=== PATIENT | male | born 1970 | race Caucasian/White ===

== ENCOUNTER 2023-05-06 03:27 | Emergency (ER) | payer BC, SELFPAY ==
[2023-05-06] VITALS (7 sets, daily range): BP systolic 161–205; BP diastolic 98–127; PULSE 76–87; RESP 16–19; TEMP 36.3–36.7; O2SAT 96–99; BMI 37.3
[2023-05-06 04:04] LABS: Microscopic, Urine URINE MICROSCOPIC (MICROSCOPIC)
[2023-05-06 04:10] LABS: Appearance,Urine CLEAR (Clear); Bilirubin,Urine Negative (Negative); Blood, Urine 1+ (Negative); Color,Urine YELLOW (Yellow); Glucose,Urine (UA) Negative (Negative); Ketones,Urine Negative (Negative); Leukocyte Esterase,Urine Negative (Negative); Nitrate,Urine Negative (Negative); Protein,Urine 1+ (Negative); Specific Gravity, Urine 1.025 (1.005-1.030); Urobilinogen,Urine 0.2 EU/dl (0.2)
[2023-05-06 04:10] LABS: Basophils # 0.1 K/mm3 (0-0.2); Eosinophils # 0.4 K/mm3 (0.0-0.4); Eosinophils % 5.9 % (0.1-12.0); Hematocrit 51.3 % (42.0-52.0); Hemoglobin 16.6 g/dL (14.1-18.0); Lymphocytes # 2.3 K/mm3 (0.7-4.5); Lymphocytes % 32.7 % (10-50); Mean Corpuscular HGB Conc 32.4 g/dL (31.8-35.4); Mean Corpuscular Hemoglobin 27.8 pg (27.0-31.2); Mean Corpuscular Volume 85.9 fl (80-94); Mean Platelet Volume 8.7 fl (7.4-10.4); Monocytes # 0.4 K/mm3 (0.1-1.0); Neutrophils # 3.9 K/mm3 (1.8-7.8); Neutrophils % 54.4 % (37.0-80.0); Platelet Count 213 K/mm3 (142-424); Red Blood Count 5.97 M/mm3 (4.60-6.20); Red Cell Distribution Width 13.6 % (11.5-17.5); White Blood Count 7.1 K/mm3 (4.8-10.8)
[2023-05-06 04:15] LABS: Alanine Aminotransferase 99 U/L (12-78); Albumin Level 4.5 g/dl (3.5-5.0); Alkaline Phosphatase 53 U/L (38-126); Anion Gap 15.4 mEq/L (5-15); Aspartate Amino Transferase 61 U/L (17-59); Bilirubin,Indirect 0.5 mg/dL (0.0-0.9); Bilirubin,Total 0.5 mg/dl (0.2-1.3); Bilirubin,Unconjugated 0.5 mg/dL (0.0-1.1); Blood Urea Nitrogen 14 mg/dl (9-20); Calcium 9.6 mg/dl (8.4-10.2); Carbon Dioxide 29 mmol/L (22.0-30.0); Chloride 99 mmol/L (98-107); Creatinine Clearance Estimated 141 mL/min (50-200); Estimated Glomerular Filt Rate 78 ml/min (>60); GFR (African American) 94 ML/MIN (>60); Glucose 123 mg/dl (74-100); Potassium 4.4 mmoL/L (3.5-5.1); Sodium 139 mmol/L (136-145); Total Protein,Serum 8.6 g/dl (6.3-8.2)
--- NOTE | 2023-05-06 04:19 | CT_ITS ---
PROCEDURE INFORMATION: Exam: CT Abdomen And Pelvis Without Contrast Exam date and time: 05/06/2023 4:34 AM Age: 52 years old Clinical indication: Abdominal pain; Additional info: L back L groin pain with difficulty urinating TECHNIQUE: Imaging protocol: Computed tomography of the abdomen and pelvis without contrast. Radiation optimization: All CT scans at this facility use at least one of these dose optimization techniques: automated exposure control; mA and/or kV adjustment per patient size (includes targeted exams where dose is matched to clinical indication); or iterative reconstruction. REPORTING DATA: Count of CT and Cardiac NM exams in prior 12 months: This patient has received 0 known CTs and 0 known cardiac nuclear medicine studies in the 12 months prior to the current study. COMPARISON: No relevant prior studies available. FINDINGS: Liver: Hepatic steatosis. Gallbladder and bile ducts: No acute findings, calcified stones or ductal dilation. Pancreas: No acute findings, focal abnormality or ductal dilation. Spleen: No splenomegaly or focal abnormality. Adrenal glands: Normal. No mass. Kidneys and ureters: Left-sided perinephric stranding. Mild left-sided periureteral stranding. Bilateral nonobstructing intrarenal calculi. Simple appearing bilateral exophytic renal cysts. Stomach and bowel: Small uncomplicated duodenal diverticulum. No bowel obstruction. Scattered uncomplicated colonic diverticula. Appendix: No evidence of appendicitis. Intraperitoneal space: No free air. No significant fluid collection. Vasculature: Partially calcified 1.5 cm splenic artery aneurysm. Lymph nodes: There are multiple nonspecific nonpathologic but prominent lymph nodes in the mesentery. There are no mesenteric lymph nodes of pathologic dimensions. Urinary bladder: 3 mm calculus in the dependent urinary bladder. Reproductive: Unremarkable as visualized. Bones/joints: No acute fracture. Soft tissues: There is a small uncomplicated fat-containing umbilical hernia. IMPRESSION: 1. 3 mm calculus in the dependent urinary bladder with associated mild left-sided perinephric and periureteral stranding likely related to recently passed ureteral calculus. 2. Hepatic steatosis. 3. Other chronic changes as described. COMMENTS: Consistent with the [employer]'s Incidental Findings Committee white paper (J Am Vazquez Radiol 2018): Any incidental renal lesion less than 1 cm or classified as too small to characterize, or any incidental cystic renal lesion characterized as simple-appearing, is likely benign. No follow-up imaging is recommended for these lesions per consensus recommendations based on imaging criteria.
[2023-05-06 04:32] LABS: T4 (Thyroxine) 8.6 ug/dl (5.53-11.0)
--- NOTE | 2023-05-06 04:33 | PC.NURSE ---
pt to CT scan
--- NOTE | 2023-05-06 04:35 | PC.NURSE ---
pt returned to room from ct scan
[2023-05-06 04:44] LABS: Bacteria,Urine Trace /lpf
[2023-05-06 04:46] LABS: Thyroid Stimulating Hormone 3.78 uIU/mL (0.465-4.68)
--- NOTE | 2023-05-06 05:05 | PC.NURSE ---
Rounded on pt at this time. Advises he was feeling much better and had no pain at this time, updated him that we were waiting on CT read. No other needs
--- NOTE | 2023-05-06 05:53 | PC.NURSE ---
Radiology chatting with vrad regarding delayed read time
--- NOTE | 2023-05-06 06:13 | HMH.EDBACK ---
Discharge Plan Disposition Chief Complaint: Back Pain/Injury Prescriptions Prescriptions: No Action levothyroxine 25 mcg tablet 25 mcg PO DAILY Label Comments: TAKE ONE TABLET BY MOUTH ONCE DAILY Referrals Follow up/Referrals: Ryan Davis MD [Primary Care Provider] - See instructions Jose Miguel Chilel MD [Referring] - See instructions Clinical Impressions Clinical Impression: Renal colic on left side Instructions Patient Instructions: DI for Kidney Stones Discharge ED Provider: Bryant (ED),Tristan Burr Back Pain HPI General Chief Complaint: Back Pain/Injury Stated Complaint: Back pain radiating to groin Time Seen by Provider: 05/06/23 05:00 Mode of Arrival: Ambulatory Source of Information: Patient and Medical Record Limitations: No Limitations Description of Symptoms (Recalled from ER Triage Doc. by RN): Pt presents with right side lumbar pain radiating into his right groin with frequent urination. No hx of kidney stones. History of Present Illness HPI Narrative: lt flank pain into groin Complaint: back pain Onset (ago): hour(s) Duration: intermittent Similar Symptoms Previously: No Location: left flank Severity: moderate Associated symptoms: denies other symptoms Related Data Home Medications Medication Instructions Recorded Confirmed levothyroxine 25 mcg tablet 25 mcg PO DAILY thyroid disorder 05/06/23 05/06/23 Allergies Allergy/AdvReac Type Severity Reaction Status Date / Time No Known Allergies Allergy Verified 05/06/23 03:32 [facility] Disclaimer: The information contained in this section may have been updated after the patient was seen, as this information can be updated by other users. Medical History (Updated 05/06/23 @ 06:18 by Tristan Hurtado (ED)MD) Hypothyroidism Social History Smoking Status: Never smoker alcohol intake: never current occupational status: employed Travel in the last 8 weeks: None ROS Obtained: Yes All systems reviewed & no additional complaints except as documented Physical Exam General General appearance: alert Head Head exam: normocephalic Eye Eye exam: Present PERRL and EOMI ENT ENT exam: Present mucous membranes moist Neck Neck exam: Present trachea midline Respiratory Respiratory exam: Absent respiratory distress Cardiovascular Cardiovascular exam: Present regular rate Extremities Exam Extremities exam: Present full ROM Neurological Exam Neurological exam: Present alert, oriented X3 and CN II-XII intact; Absent motor sensory deficit Psychiatric Psychiatric exam: Present normal affect Skin Skin exam: Absent rash Medical Decision Making Medical Records Medical records reviewed: Yes I reviewed the patient's medical records. John Inquiry Pt receiving controlled substance: No Vital Signs: 05/06/23 03:31 05/06/23 03:37 05/06/23 05:07 Temperature 97.4 F L Temperature Source Oral Pulse Rate 86 76 Pulse Rate [Right] 87 Respiratory Rate 18 16 Blood Pressure 200/110 H 177/104 H Blood Pressure [Right Arm] 205/127 H Blood Pressure Mean Blood Pressure Mean [Right Arm] 153 Blood Pressure Source Manual Cuff/ Auscultation Automatic Cuff Blood Pressure Source [Right Arm] Automatic Cuff Blood Pressure Position Sitting 02 Sat by Pulse Oximetry 97 96 98 Oxygen Delivery Method Room Air Room Air 05/06/23 05:01 05/06/23 05:31 05/06/23 06:01 Temperature Temperature Source Pulse Rate 81 82 79 Pulse Rate [Right] Respiratory Rate Blood Pressure 170/101 H 161/101 H 161/98 H Blood Pressure [Right Arm] Blood Pressure Mean 124 121 119 Blood Pressure Mean [Right Arm] Blood Pressure Source Blood Pressure Source [Right Arm] Blood Pressure Position 02 Sat by Pulse Oximetry 97 98 99 Oxygen Delivery Method Room Air Room Air Room Air Lab Data Lab results reviewed: Yes I reviewed the patient's lab results. Lab Results 05/06/23 03:45: WBC 7.1, RBC 5.97, Hgb
== END 2023-05-06 06:35 | disposition home or self-care (01) ==
LOC: ER 03:41
PROVIDERS: Emergency Provider Emergency Medicine; PCP Family Medicine
DX: N23 Unspecified renal colic (principal); M54.50 Low back pain, unspecified; R10.2 Pelvic and perineal pain
CPT/HCPCS: 74176; 80048; 80076; 81001; 84436; 84443; 85025; 96361; 96374; 99284; 99285

== ENCOUNTER 2024-10-02 21:47 | Emergency (ER) | payer BC, SELFPAY ==
[2024-10-02 21:49] VITALS: BP 180/99; PULSE 100; RESP 18; TEMP 36.6; O2SAT 96; BMI 35.9
--- OUTSIDE RECORDS SUMMARY | 2024-10-02 22:00 | XMS_ITS | Encounter Summary ---
Author Organization [place] [address] Care Team Providers Care Rate Analyst Name Role Phone Ryan Davis MD Primary Care Provider [phone] Reason for Visit * Reason Onset Date Comments Medication Management 08/13/2022 predniSONE (DELTASONE) 20 mg Oral Tablet 7 Tablet 0 08/13/2022 08/20/2022 Sig - Route: Take 1 Tablet by mouth daily for 7 days. 2 tabs at the same time first thing in the morning. - Oral Encounter Details Date Type Department Care Team (Late st Contact Info) Description 08/13/2022 Telephone [facility] [address] [place] [address] [place] [phone] Ryan Davis MD [address] [place] [address] [place] [address] Medication Management (predniSONE (DELTASONE) 20 mg Oral Tablet 7 Tablet 0 08/13/2022 08/20/2022 /Sig - Route: Take 1 Tablet by mouth daily for 7 days. 2 tabs at the same time first thing in the morning. - Oral //) Social History Tobacco Use Types Packs/Day Years Used Date Smoking Tobacco: Former Cigarettes Smokeless Tobacco: Never Alcohol Use Standard Drinks/Week Comments Yes 0 (1 standard drink = 0.6 oz pur e alcohol) PHQ-2 Answer Date Recorded PHQ-2 Total Score 0 08/13/2022 Sexually Active Control Partners Comments Yes Female Sex and Gender Information Value Date Recorded Sex Assigned at Not on file Legal Sex Male 9:34 PM EDT Gender Identity Not on file Sexual Orientation Not on file documented as of this encounter Functional Status * Is the person deaf or does he/she have serious difficulty hearing? Answer Date of Assessment Author No 08/13/2022 8:16 AM EDT Roya Savage RMA * Is the person blind or does he/she have serious difficulty seeing even when wearing glasses? Answer Date of Assessment Author No 08/13/2022 8:16 AM EDT Roya Savage RMA * Does this person have serious difficulty walking or climbing stairs? Answer Date of Assessment Author No 08/13/2022 8:16 AM EDT Roya Savage RMA * Does this person have difficulty dressing or bathing? Answer Date of Assessment Author No 08/13/2022 8:16 AM EDT Roya Savage RMA * Because of a physical, mental or emotional condition, does this person have difficulty doing errands alone such as visiting a doctor's office or shopping? Answer Date of Assessment Author No 08/13/2022 8:16 AM EDT Roya Savage RMA documented as of this encounter Mental Status * Because of a physical, mental or emotional condition, does this person have serious difficulty concentrating, remembering or making decisions? Answer Entry Date Author No 08/13/2022 8:16 AM EDT Roya Savage RMA documented in this encounter Miscellaneous Notes * Telephone Encounter - Ryan Davis MD - 08/13/2022 11:05 AM EDT I fixed the script and resent it. Sorry * Telephone Encounter - Rossi Rodrigues RMA - 08/13/2022 11:03 AM EDT Please advise * Telephone Encounter - Angeline Sauer - 08/13/2022 10:56 AM EDT pharmacy is calling about the predniSONE (DELTASONE) 20 mg Oral Tablet 7 Tablet 0 08/13/2022 08/20/2022 Sig - Route: Take 1 Tablet by mouth daily for 7 days. 2 tabs at the same time first thing in the morning. - Oral there is 2 different set of directions, the quantity does not match please advise [facility] - [place] [address] [address] [facility] - [phone] documented in this encounter Plan of Treatment Not on file documented as of this encounter Goals Goal Patient Goal Type Associated Problems Recent Progress Patient-Stated? Author Maintain a healthy diet, exercise regularly and maintain an ideal body weight General No Angelic Burgos CCMA Maintain a healthy diet, exercise regularly and maintain an ideal body weight General No Ryan Davis MD Stay Tobacco Free Lifestyle No Ryan Davis MD documented as of this encounter Visit Diagnoses Not on filedocumented in this encounter Care Teams Rate Analyst Relationship Specialty Start Date End Date Ryan Davis MD [address] [facility] [place] [address] PCP - General Family Medicine 07/23/19 documented as of this encounter
--- OUTSIDE RECORDS SUMMARY | 2024-10-02 22:00 | XMS_ITS | Encounter Summary ---
Author Organization [place] [address] Care Team Providers Care Educational Institution President Name Role Phone Ryan Davis MD Primary Care Provider [phone] Reason for Referral * Consultation (Routine) - Closed Specialty Diagnoses / Procedures Referred By Contac t Referred To Contact Urology Diagnoses Kidney stones Ryan Davis MD [address] [place] [address] [place] [address] Phone: tel: fax: [facility] [address] [place] [address] Phone: tel: fax: Referral ID Status Reason Start Date Expiration Date Visits Re quested Visits Authorized [id number] Closed 05/07/2023 05/06/2024 99 99 Reason for Visit * Reason Comments Hospital Follow Up Encounter Details Date Type Department Care Team (Late st Contact Info) Description 05/07/2023 2:20 PM EDT Office Visit [facility] [place] [address] [place] [address] Ryan Davis MD [address] [place] [address] [place] [address] Essential hypertension (Primary Dx); Kidney stones Social History Tobacco Use Types Packs/Day Years Used Date Smoking Tobacco: Never Smokeless Tobacco: Never Tobacco Cessation:Counseling Given: Not Answered Alcohol Use Standard Drinks/Week Comments Yes 0 [...] on file documented as of this encounter Last Filed Vital Signs Vital Sign Reading Time Taken Comments Blood Pressure 170/110 05/07/2023 2:33 PM EDT Pulse 96 05/07/2023 2:33 PM EDT Temperature 36.6 ??C (97.8 ??F) 05/07/2023 2:33 PM ED T Respiratory Rate 18 05/07/2023 2:33 PM EDT Oxygen Saturation 97% 05/07/2023 2:33 PM EDT Inhaled Oxygen Concentration - - Weight 118.1 kg (260 lb 6.4 oz) 05/07/2023 2:33 PM EDT Height 177.8 cm (5' 10 ) 05/07/2023 2:33 PM EDT Body Mass Index 37.36 05/07/2023 2:33 PM EDT documented in this encounter Functional Status * Is the person deaf or does he/she have serious difficulty hearing? Answer Date of Assessment Author No 08/13/2022 8:16 AM Roya Drummond RMA * Is the person blind or does he/she have serious difficulty seeing even when wearing glasses? Answer Date of Assessment Author No 08/13/2022 8:16 AM Roya Drummond RMA * Does this person have serious difficulty walking or climbing stairs? Answer Date of Assessment Author No 08/13/2022 8:16 AM Roya Drummond RMA * Does this person have difficulty dressing or bathing? Answer Date of Assessment Author No 08/13/2022 8:16 AM Roya Drummond RMA * Because of a physical, mental [...] Entry Date Author No 08/13/2022 8:16 AM EDRoya Jovel RMA documented in this encounter Ordered Prescriptions Prescription Sig Dispense Quantity Refills Last Filled Start Date End Date tamsulosin (FLOMAX) 0.4 mg Oral CapsuleIndications :Kidney stones Take 1 Capsule by mouth nightly. 30 Capsule 2 05/07/2023 3 amLODIPine (NORVASC) 5 mg Oral TabletIndications: Essential hypertension Take 1 Tablet by mouth daily. 30 Tablet 2 05/07/2023 3 documented in this encounter Progress Notes * Ryan Davis MD - 05/07/2023 2:20 PM EDT Diagnoses and all orders for this visit: Essential hypertension - amLODIPine (NORVASC) 5 mg Oral Tablet; Take 1 Tablet by mouth daily. Dispense: 30 Tablet; Refill:2 New diagnosis of hypertension today. We will start on amlodipine and follow-up his blood pressure response to this in 2 to 3 weeks. Advise low-salt/DASH diet as well. Kidney stones - tamsulosin (FLOMAX) 0.4 mg Oral Capsule; Take 1 Capsule by mouth nightly. Dispense: 30 Capsule; Refill: 2 - AMB REFERRAL TO UROLOGY Refer to urology for further evaluation of his kidney stones. Waiting on records from outside hospital for size of his stones. Continue on Flomax for now. Vitals: 05/07/23 1433 BP: (!) 170/110 Pulse: 96 Resp: 18 Temp: 97.8 ??F (36.6 ??C) SpO2: 97% Chief Complaint Patient presents with Hospital Follow Up HPI: He was recently seen in the ER for kidney stones. He had elevated blood pressure readings at that time was advised to follow-up with his PCP. He previously had elevated blood pressure readings last fall as well. While he was in the ER he passed 1 small stone but was told that he still had a no other retained stone at that time. They recommended that he follow-up with urology. They did not discharge him on any additional Flomax. He still been having some left-sided flank pain since then. No gross hematuria. Urination has returned to normal, when he first had a issue with the stone he was having issues with decreased urinary volume/stream and pain with urination. Review of Systems HENT: Positive for congestion. Respiratory: Negative for shortness of breath. Cardiovascular: Negative for chest pain. Gastrointestinal: Negative for abdominal pain. Neurological: Negative for dizziness and headaches. Physical Exam Vitals reviewed. Constitutional: General: He is not in acute distress. Appearance: He is not ill-appearing or toxic-appearing. Cardiovascular: Rate and Rhythm: Normal rate and regular rhythm. Pulmonary: Effort: Pulmonary effort is normal. Breath sounds: No wheezing, rhonchi or rales. Abdominal: Palpations: Abdomen is soft. Tenderness: There is no abdominal tenderness. There is no right CVA tenderness, left CVA tenderness, guarding or rebound. Musculoskeletal: Cervical back: Normal range of motion. Skin: Findings: No rash. Neurological: General: No focal deficit present. Mental Status: He is alert and oriented to person, place, and time. Mental status is at baseline. Coordination: Coordination normal. Gait: Gait normal. Psychiatric: Mood and Affect: Mood normal. Behavior: Behavior normal. Thought Content: Thought content normal. documented in this encounter Plan of Treatment Scheduled Referrals Name Type Priority Associated Diagnoses Orde r Schedule AMB REFERRAL TO UROLOGY Outpatient Referral Routine Kidney stones Ordered: 05/07/2023 documented as of this encounter Goals Goal Patient Goal Type Associated Problems Recent Progress Patient-Stated? Author Blood Pressure < 140/90 Blood Pressure 158/92(2023 9:36 AM EDT) No Ryan Davis MD Maintain a healthy diet, exercise regularly and maintain an ideal body weight General No Angelic Burgos CCMA Maintain a healthy diet, exercise regularly and maintain an ideal body weight General No Ryan Davis MD Stay Tobacco Free Lifestyle No Ryan Davis MD documented as of this encounter Visit Diagnoses Diagnosis Essential hypertension- Primary Unspecified essential hypertension Kidney stones Calculus of kidney documented in this encounter Care Teams Educational Institution President Relationship Specialty Start Date End Date Ryan Davis MD [address] [place] [address] DR [place], [place] [address] PCP - General Family Medicine 07/23/19 documented as of this encounter
--- OUTSIDE RECORDS SUMMARY | 2024-10-02 22:00 | XMS_ITS | Encounter Summary ---
Author Organization [facility] [place] [address] Care Team Providers Care Distributor Sales Consultant Name Role Phone Ryan Davis MD Primary Care Provider [phone] Encounter Details Date Type Department Care Team (Latest Contact Info) Description 03/21/2021 Travel Social History Tobacco Use Types Packs/Day Years Used Date Smoking Tobacco: Former Cigarettes Smokeless Tobacco: Never Alcohol Use Standard Drinks/Week Comments Yes 0 (1 standard drink = 0.6 oz pur e alcohol) PHQ-2 Answer Date Recorded PHQ-2 Score 0 07/23/2019 Sexually Active Control Partners Comments Yes Female Sex and Gender Information Value Date Recorded Sex Assigned at Not on file Legal Sex Male 9:34 PM EDT Gender Identity Not on file Sexual Orientation Not on file COVID-19 Exposure Response Date Recorded In the last month, have you been in contact with someone who was confirmed or suspected to have Coronavirus / COVID-19? No / Unsure 03/21/2021 1:05 PM EDT documented as of this encounter Functional Status * Is the person deaf or does he/she have serious difficulty hearing? Answer Date of Assessment Author No 11/18/2019 3:26 PM Vince Roman MA * Is the person blind or does he/she have serious difficulty seeing even when wearing glasses? Answer Date of Assessment Author No 11/18/2019 3:26 PM Vince Roman MA * Does this person have serious difficulty walking or climbing stairs? Answer Date of Assessment Author No 11/18/2019 3:26 PM Vince Roman MA * Does this person have difficulty dressing or bathing? Answer Date of Assessment Author No 11/18/2019 3:26 PM Vince Roman MA * Because of a physical, mental or emotional condition, does this person have difficulty doing errands alone such as visiting a doctor's office or shopping? Answer Date of Assessment Author No 11/18/2019 3:26 PM Vince Roman MA documented as of this encounter Mental Status * Because of a physical, mental or emotional condition, does this person have serious difficulty concentrating, remembering or making decisions? Answer Entry Date Author No 11/18/2019 3:26 PM Vince Roman MA documented in this encounter Plan of Treatment [...] on filedocumented in this encounter Care Teams Distributor Sales Consultant Relationship Specialty Start Date End Date Ryan Davis MD [address] [place] [address] [place] [address] PCP - General Family Medicine 07/23/19 documented as of this encounter
--- OUTSIDE RECORDS SUMMARY | 2024-10-02 22:00 | XMS_ITS | Encounter Summary ---
Author Organization [place] [address] Care Team Providers Care Party Planner Name Role Phone Ryan Davis MD Primary Care Provider [phone] Reason for Visit * Reason Comments Cough Dry throat , on arslan g 2-3 weeks Encounter Details Date Type Department Care Team (Late st Contact Info) Description 08/13/2022 8:00 AM EDT Office Visit [facility] [place] [address] [place] [address] Ryan Davis MD [address] [place] [address] [place] [address] Bronchitis (Primary Dx) Social History Tobacco Use Types Packs/Day Years [...] Sign Reading Time Taken Comments Blood Pressure 150/120 08/13/2022 8:15 AM EDT Pulse 85 08/13/2022 8:15 AM EDT Temperature 36.4 ??C (97.6 ??F) 08/13/2022 8:15 AM ED T Respiratory Rate 18 08/13/2022 8:15 AM EDT Oxygen Saturation 98% 08/13/2022 8:15 AM EDT Inhaled Oxygen Concentration - - Weight 117 kg (258 lb) 08/13/2022 8:15 AM EDT Height 177.8 cm (5' 10 ) 08/13/2022 8:15 AM EDT Body Mass Index 37.02 08/13/2022 8:15 AM EDT documented in this encounter Functional Status * Is the person deaf or does he/she have serious difficulty hearing? Answer Date of Assessment Author No 08/13/2022 8:16 AM EDT Roya Savage RMA * Is the person blind or does he/she have serious difficulty seeing even when wearing glasses? Answer Date of Assessment Author No 08/13/2022 8:16 AM EDRoya Jovel RMA * Does this person have serious difficulty walking or climbing stairs? Answer Date of Assessment Author No 08/13/2022 8:16 AM EDRoya Jovel RMA * Does this person have difficulty dressing or bathing? Answer Date of Assessment Author No 08/13/2022 8:16 AM EDT Roya Savage RMA * Because of a physical, mental or emotional condition, does this person have difficulty doing errands alone such as visiting a doctor's office or shopping? Answer Date of Assessment Author No 08/13/2022 8:16 AM EDRoya Jovel RMA documented as of this encounter Mental Status * Because of a physical, mental or emotional condition, does this person have serious difficulty concentrating, remembering or making decisions? Answer Entry Date Author No 08/13/2022 8:16 AM EDRoya Jovel RMA documented in this encounter Ordered Prescriptions Prescription Sig Dispense Quantity Refills Last Filled Start Date End Date benzonatate (TESSALON) 100 mg Oral CapsuleIndications :Bronchitis Take 1 Capsule by mouth 3 times daily as needed for Cough for up to 10 days. 30 Capsule 08/13/2022 predniSONE (DELTASONE) 20 mg Oral TabletIndications: Bronchitis Take 1 Tablet by mouth daily for 7 days. 2 tabs at the same time first thing in the morning. 7 Tablet 08/13/2022 2 documented in this encounter Progress Notes * Ryan Davis MD - 08/13/2022 8:00 AM EDT Vitals: 08/13/22 0815 BP: (!) 150/120 Pulse: 85 Resp: 18 Temp: 97.6 ??F (36.4 ??C) TempSrc: Tympanic SpO2: 98% Weight: 258 lb (117 kg) Height: 5' 10 (1.778 m) SUBJECTIVE: Chief Complaint Patient presents with ??? Cough Dry throat , on going 2-3 weeks HPI: He has a 2 to 3-week history of cough with a dry scratchy throat. No fevers or chills. No sinus pressure or pain. Cough is nonproductive. No thick sinus drainage. He has been taking some hrob-elb-agwsfri decongestant medication at home with partial relief of his symptoms. No recent COVID-19 or flu exposure. Review of Systems HENT: Positive for sore throat. Respiratory: Positive for cough. Negative for shortness of breath. Cardiovascular: Negative for chest pain. Gastrointestinal: Negative for abdominal pain. Neurological: Negative for dizziness, light-headedness and headaches. OBJECTIVE: Physical Exam Vitals reviewed. Constitutional: General: He is not in acute distress. Appearance: He is not ill-appearing, toxic-appearing or diaphoretic. HENT: Right Ear: Tympanic membrane normal. Left Ear: Tympanic membrane normal. Nose: Congestion and rhinorrhea present. Mouth/Throat: Pharynx: Posterior oropharyngeal erythema present. No oropharyngeal exudate. Cardiovascular: Rate and Rhythm: Normal rate and regular rhythm. Pulses: Normal pulses. Pulmonary: Effort: Pulmonary effort is normal. No respiratory distress. Breath sounds: Rhonchi present. No wheezing or rales. Skin: Findings: No rash. Neurological: Mental Status: He is alert. Assessment Diagnoses and all orders for this visit: Bronchitis - predniSONE (DELTASONE) 20 mg Oral Tablet; Take 1 Tablet by mouth daily for 7 days. 2 tabs at the same time first thing in the morning. Dispense: 7 Tablet; Refill: 0 - benzonatate (TESSALON) 100 mg Oral Capsule; Take 1 Capsule by mouth 3 times daily as needed for Cough for up to 10 days. Dispense: 30 Capsule; Refill: 0 Will treat bronchitis with short course of steroids and cough suppressant per above. Advised to stop taking vkco-plv-xlwixos decongestant medications as his blood pressure is elevated today likely secondary to this. Follow-up as needed. No previous history of high blood pressure. documented in this encounter Plan of Treatment [...] as of this encounter Visit Diagnoses Diagnosis Bronchitis- Primary Bronchitis, not specified as acute or chronic documented in this encounter Care Teams Party Planner Relationship Specialty Start Date End Date Ryan Davis MD [address] [place] [address] [place] [address] PCP - General Family Medicine 07/23/19 documented as of this encounter
--- OUTSIDE RECORDS SUMMARY | 2024-10-02 22:00 | XMS_ITS | Encounter Summary ---
Author Organization [facility] [place] [address] Care Team Providers Care Senior Web Applications Developer Name Role Phone Ryan Davis MD Primary Care Provider [phone] Encounter Details Date Type Department Care Team (Latest Contact Info) Description 05/25/2021 Travel Social History Tobacco Use Types Packs/Day [...] have Coronavirus / COVID-19? No / Unsure 05/25/2021 10:11 AM EDT documented as of this encounter Functional [...] on filedocumented in this encounter Care Teams Senior Web Applications Developer Relationship Specialty Start Date End Date Ryan Davis MD [address] [place] [address] [place] [address] PCP - General Family Medicine 07/23/19 documented as of this encounter
--- OUTSIDE RECORDS SUMMARY | 2024-10-02 22:00 | XMS_ITS | Encounter Summary ---
Author Organization [place] [address] Care Team Providers Care Room Designer Name Role Phone Ryan Alaniz MD Primary Care Provider [phone] Reason for Visit * Reason Onset Date Comments Follow-up 08/21/2022 Seen on 08-13-22 cough no better Encounter Details Date Type Department Care Team (Late st Contact Info) Description 08/21/2022 Telephone SEP Karin [address] [place] [address] Ryan Alaniz MD [address] [place] [address] [place] [address] Follow-up (Seen on 08-13-22 cough no better ) Social History Tobacco Use Types Packs/Day Years [...] Assessment Author No 08/13/2022 8:16 AM EDT MartyRoya palmer ROBIN * Does this person have serious difficulty walking or climbing stairs? Answer Date of Assessment Author No 08/13/2022 8:16 AM EDT MartyRoya palmer ROBIN * Does this person have difficulty dressing or bathing? Answer Date of Assessment Author No 08/13/2022 8:16 AM EDT Roya Savage ROBIN * Because of a physical, mental or emotional condition, does this person have difficulty doing errands alone such as visiting a doctor's office or shopping? Answer Date of Assessment Author No 08/13/2022 8:16 AM EDT Roya Savage RMVince documented as of this encounter Mental Status * Because of a physical, mental or emotional condition, does this person have serious difficulty concentrating, remembering or making decisions? Answer Entry Date Author No 08/13/2022 8:16 AM EDT Roya Savage RMA documented in this encounter Miscellaneous Notes * Telephone Encounter - Meenakshi Savage RMA - 08/22/2022 10:15 AM EDT Pt notified * Telephone Encounter - Ryan Alaniz MD - 08/22/2022 9:37 AM EDT I sent in an antibiotic for him, please follow up Friday if symptoms are not resolving/improved * Telephone Encounter - Kelly Dos Santos DO - 08/21/2022 1:13 PM EDT Since I have not seen patient or evaluated in person, would prefer to have Dr. Alaniz address antibiotic usage in this patient when he returns tomorrow. Thanks! Kelly Dos Santos DO Family Medicine 08/21/2022 * Telephone Encounter - Rossi Rodrigues RMA - 08/21/2022 12:13 PM EDT Would want to give ABX or can this wait until Dr Ryan alaniz returns * Telephone Encounter - Varsha López - 08/21/2022 9:31 AM EDT Was seen on 08-13-22 his cough is no better Tessalon 100 mg not working Could he get a antibiotic please [facility] [place] documented in this encounter Plan of Treatment Not on file documented as of this encounter Goals Goal Patient Goal Type Associated Problems Recent Progress Patient-Stated? Author Maintain a healthy diet, exercise regularly and maintain an ideal body weight General No Angelic Burgos CCMA Maintain a healthy diet, exercise regularly and maintain an ideal body weight General No Ryan Alaniz MD Stay Tobacco Free Lifestyle No Ryan Alaniz MD documented as of this encounter Visit Diagnoses Not on filedocumented in this encounter Care Teams Room Designer Relationship Specialty Start Date End Date Ryan Alaniz MD [address] [place] [address] [place] [address] PCP - General Family Medicine 07/23/19 documented as of this encounter
--- OUTSIDE RECORDS SUMMARY | 2024-10-02 22:00 | XMS_ITS | Encounter Summary ---
Author Organization [facility] [place] [address] Care Team Providers Care Benefits Specialist Recruiter Name Role Phone Ryan Davis MD Primary Care Provider [phone] Encounter Details Date Type Department Care Team (Latest Contact Info) Description 09/12/2020 Travel Social History Tobacco Use Types Packs/Day [...] have Coronavirus / COVID-19? No / Unsure 09/12/2020 10:16 AM EST documented as of this encounter Functional Status * Is the person deaf or does he/she have serious difficulty hearing? Answer Date of Assessment Author No 11/18/2019 3:26 PM EST Vince Ray MA * Is the person blind or does he/she have serious difficulty seeing even when wearing glasses? Answer Date of Assessment Author No 11/18/2019 3:26 PM EST Vince Ray MA * Does this person have serious difficulty walking or climbing stairs? Answer Date of Assessment Author No 11/18/2019 3:26 PM EST Vince Ray MA * Does this person have difficulty [...] on filedocumented in this encounter Care Teams Benefits Specialist Recruiter Relationship Specialty Start Date End Date Ryan Davis MD [address] [place] [address] [place] [address] PCP - General Family Medicine 07/23/19 documented as of this encounter
--- OUTSIDE RECORDS SUMMARY | 2024-10-02 22:00 | XMS_ITS | Encounter Summary ---
Author Organization [place] [address] Care Team Providers Care Post Acute Care Nurse Name Role Phone Ryan Davis MD Primary Care Provider [phone] Reason for Visit * Reason Comments Insect Bite Pt sts that he has s pot on the back of the right ear that is sensitive , pt sts that it has been week. started small and it is getting bigger Encounter Details Date Type Department Care Team (Late st Contact Info) Description 05/25/2021 10:20 AM EDT Office Visit [facility] [place] [facility] [address] Ryan Davis MD [address] [place] [address] [place] [address] Cellulitis of right ear (Primary Dx) Social History Tobacco Use Types [...] AM EDT documented as of this encounter Last Filed Vital Signs Vital Sign Reading Time Taken Comments Blood Pressure 134/80 05/25/2021 10:21 AM EDT Pulse 76 05/25/2021 10:21 AM EDT Temperature 36.7 ??C (98.1 ??F) 05/25/2021 10:21 AM E DT Respiratory Rate 16 05/25/2021 10:21 AM EDT Oxygen Saturation 98% 05/25/2021 10:21 AM EDT Inhaled Oxygen Concentration - - Weight 114.3 kg (252 lb) 05/25/2021 10:21 AM EDT Height - - Body Mass Index 36.16 09/06/2020 3:48 PM EDT documented in this encounter Functional [...] Vince Roman MA documented in this encounter Ordered Prescriptions Prescription Sig Dispense Quantity Refills Last Filled Start Date End Date cephALEXin (KEFLEX) 500 mg Oral CapsuleIndications: Cellulitis of right ear Take 1 Cap by mouth every 8 hours for 7 days. 21 Cap 05/25/2021 06/01/2021 documented in this encounter Progress Notes * Ryan Davis MD - 05/25/2021 10:20 AM EDT Assessment Diagnoses and all orders for this visit: Cellulitis of right ear - cephALEXin (KEFLEX) 500 mg Oral Capsule; Take 1 Cap by mouth every 8 hours for 7 days. Dispense: 21 Cap; Refill: 0 Will treat right ear cellulitis with Keflex and follow-up as needed if signs of infection persist. No concern for shingles on exam today Progress Note: Vitals: 05/25/21 1021 BP: 134/80 Pulse: 76 Resp: 16 Temp: 98.1 ??F (36.7 ??C) TempSrc: Temporal SpO2: 98% Weight: 252 lb (114.3 kg) SUBJECTIVE: Chief Complaint Patient presents with ??? Insect Bite Pt sts that he has spot on the back of the right ear that is sensitive , pt sts that it has been week. started small and it is getting bigger HPI: He has a 1 week history of gradually worsening redness and swelling on his right ear. He denies anyfevers or chills. No purulent drainage from the area. He thinks he developed an insect bite earlierin the week and then scratch/pick at it and the redness and swelling gradually worsened. He feels like it somewhat itchy and irritating at times as well. No other areas of rash. Review of Systems Constitutional: Negative for chills and fever. HENT: Negative for congestion and sinus pain. Respiratory: Negative for cough, chest tightness and shortness of breath. Cardiovascular: Negative for chest pain and palpitations. Gastrointestinal: Negative for abdominal pain, nausea and vomiting. Neurological: Negative for dizziness and headaches. OBJECTIVE: Physical Exam Constitutional: General: He is not in acute distress. Appearance: Normal appearance. He is not ill-appearing or toxic-appearing. HENT: Right Ear: Tympanic membrane normal. Left Ear: Tympanic membrane normal. Skin: Comments: Right ear cellulitic changes near the helix. No purulence noted. No surrounding blistery rash concerning for shingles. No erythema or skin changes on the inside of the ear canal. Neurological: Mental Status: He is alert. documented in this encounter Plan of Treatment [...] as of this encounter Visit Diagnoses Diagnosis Cellulitis of right ear- Primary documented in this encounter Care Teams Post Acute Care Nurse Relationship Specialty Start Date End Date Ryan Davis MD [address] [place] [address] [place] [address] PCP - General Family Medicine 07/23/19 documented as of this encounter
--- OUTSIDE RECORDS SUMMARY | 2024-10-02 22:00 | XMS_ITS | Encounter Summary ---
Author Organization [place] [address] Care Team Providers Care Ballet Dancer Name Role Phone Ryan Davis MD Primary Care Provider [phone] Encounter Details Date Type Department Care Team (Late st Contact Info) Description 08/13/2022 Orders Only SEP Karin [address] [place] [address] Ryan Davis MD [address] [place] [address] [place] [address] Bronchitis Social History Tobacco Use Types Packs/Day Years [...] Author No 08/13/2022 8:16 AM Roya Drummond RMVince * Does this person have difficulty dressing or bathing? Answer Date of Assessment Author No 08/13/2022 8:16 AM Roya Drummond ROBIN * Because of a physical, mental or emotional condition, does this person have difficulty doing errands alone such as visiting a doctor's office or shopping? Answer Date of Assessment Author No 08/13/2022 8:16 AM Roya Drummond ROBIN documented as of this encounter Mental Status * Because of a physical, mental or emotional condition, does this person have serious difficulty concentrating, remembering or making decisions? Answer Entry Date Author No 08/13/2022 8:16 AM Roya Drummond ROBIN documented in this encounter Ordered Prescriptions Prescription Sig Dispense Quantity Refills Last Filled Start Date End Date predniSONE (DELTASONE) 20 mg Oral TabletIndications: Bronchitis Take 1 Tablet by mouth daily for 7 days. 7 Tablet 08/13/2022 08/20/2022 documented in this encounter Plan of Treatment [...] as of this encounter Visit Diagnoses Diagnosis Bronchitis Bronchitis, not specified as acute or chronic documented in this encounter Discontinued Medications Medication Sig Discontinue Reason Start Date End Da te predniSONE (DELTASONE) 20 mg Oral TabletIndications:Bronch itis Take 1 Tablet by mouth daily for 7 days. 2 tabs at the same time first thing in the morning. Reorder 08/13/2022 08/13/2022 documented as of this encounter Care Teams Ballet Dancer Relationship Specialty Start Date End Date Ryan Davis MD [address] [place] [address] [place] [address] PCP - General Family Medicine 07/23/19 documented as of this encounter
--- OUTSIDE RECORDS SUMMARY | 2024-10-02 22:00 | XMS_ITS | Encounter Summary ---
Author Organization [place] [address] Care Team Providers Care Spanish Tutor Name Role Phone Ryan Davis MD Primary Care Provider [phone] Reason for Visit * Reason Onset Date Comments Sore Throat 06/14/2021 Nasal Congestion 06/14/2021 Encounter Details Date Type Department Care Team (Late st Contact Info) Description 06/14/2021 Nurse Triage [address] [place] [address] Noreen Sahu, YUNIER Social History Tobacco Use Types Packs/Day Years [...] Vince Roman MA documented in this encounter Miscellaneous Notes * Telephone Encounter - Noreen Sahu RN - 06/14/2021 11:26 AM EDT After Hours Nurse Triage Call -Chief Complaint: sore throat; stuffy nose -Reported by: self -Disposition per protocol: home care -Follow up/Concerns: none Reason for Disposition ? ? [1] Sore throat with cough/cold symptoms AND [2] present < 5 days Answer Assessment - Initial Assessment Questions 1. ONSET: When did the throat start hurting? (Hours or days ago) Friday 2. SEVERITY: How bad is the sore throat? (Scale 1-10; mild, moderate or severe) - MILD (1-3): doesn't interfere with eating or normal activities - MODERATE (4-7): interferes with eating some solids and normal activities - SEVERE (8-10): excruciating pain, interferes with most normal activities - SEVERE DYSPHAGIA: can't swallow liquids, drooling 4-5/10 3. STREP EXPOSURE: Has there been any exposure to strep within the past week? If so, ask: What type of contact occurred? no 4. VIRAL SYMPTOMS: Are there any symptoms of a cold, such as a runny nose, cough, hoarse voice or red eyes? feels stuffy 5. FEVER: Do you have a fever? If so, ask: What is your temperature, how was it measured, and when did it start? no 6. PUS ON THE TONSILS: Is there pus on the tonsils in the back of your throat? no 7. OTHER SYMPTOMS: Do you have any other symptoms? (e.g., difficulty breathing, headache, rash) no 8. : Is there any chance you are ? When was your last menstrual period? n/a Protocols used: SORE THROAT-A-AH documented in this encounter Plan of Treatment [...] on filedocumented in this encounter Care Teams Spanish Tutor Relationship Specialty Start Date End Date Ryan Davis MD [address] [place] [address] [place] [address] PCP - General Family Medicine 07/23/19 documented as of this encounter
--- OUTSIDE RECORDS SUMMARY | 2024-10-02 22:00 | XMS_ITS | Encounter Summary ---
Author Organization [facility] [place] [address] Care Team Providers Care Heat Regulator Name Role Phone Ryan Davis MD Primary Care Provider [phone] Encounter Details Date Type Department Care Team (Late st Contact Info) Description 08/22/2022 Orders Only SEP Karin [address] [place] [address] Ryan Davis MD [address] [place] [address] [place] SH[place] [address] Acute bacterial sinusitis (Primary Dx) Social History Tobacco Use Types [...] 08/13/2022 8:16 AM Roya Drummond ROBIN * Does this person have difficulty dressing or bathing? Answer Date of Assessment Author No 08/13/2022 8:16 AM KAYLA MartyRoya palmer ROBIN * Because of a physical, mental or emotional condition, does this person have difficulty doing errands alone such as visiting a doctor's office or shopping? Answer Date of Assessment Author No 08/13/2022 8:16 AM KAYLA JadaRoya deckerdoritootie Barber ROBIN documented as of this encounter Mental Status * Because of a physical, mental or emotional condition, does this person have serious difficulty concentrating, remembering or making decisions? Answer Entry Date Author No 08/13/2022 8:16 AM KAYLA MartyRoya palmer ROBIN documented in this encounter Ordered Prescriptions Prescription Sig Dispense Quantity Refills Last Filled Start Date End Date amoxicillin-clavul anate (AUGMENTIN) 875-125 mg Oral TabletIndications: Acute bacterial sinusitis Take 1 Tablet by mouth every 12 hours for 7 days. 14 Tablet 08/22/2022 08/29/2022 documented in this encounter Plan of Treatment [...] as of this encounter Visit Diagnoses Diagnosis Acute bacterial sinusitis- Primary Acute sinusitis, unspecified documented in this encounter Care Teams Heat Regulator Relationship Specialty Start Date End Date Ryan Davis MD [address] [place] [address] [place] [address] PCP - General Family Medicine 07/23/19 documented as of this encounter
--- OUTSIDE RECORDS SUMMARY | 2024-10-02 22:00 | XMS_ITS | Encounter Summary ---
Author Organization [facility] [place] [address] Care Team Providers Care Awning Finisher Name Role Phone Ryan Davis MD Primary Care Provider [phone] Reason for Visit * Reason Comments Medication Refill Encounter Details Date Type Department Care Team (Late st Contact Info) Description 09/14/2021 Refill SEP Karin [address] [place] [id number] Daniela Stringer, SILK SCREEN PRINTER HELPER [address] [place] [address] Medication Refill Social History Tobacco Use Types Packs/Day Years [...] Refills Last Filled Start Date End Date LEVOthyroxine (SYNTHROID) 25 mcg Oral TabletIndications: Hypothyroidism (acquired) TAKE ONE TABLET BY MOUTH ONCE DAILY 90 Tablet 3 09/14/2021 11/05/2022 documented in this encounter Plan of Treatment [...] as of this encounter Visit Diagnoses Diagnosis Hypothyroidism (acquired) Unspecified hypothyroidism documented in this encounter Discontinued Medications Medication Sig Discontinue Reason Start Date End Da te LEVOthyroxine (SYNTHROID) 25 mcg Oral TabletIndications:Hypoth yroidism (acquired) TAKE ONE TABLET BY MOUTH ONCE DAILY 09/07/2020 09/14/2021 documented as of this encounter Care Teams Awning Finisher Relationship Specialty Start Date End Date Ryan Davis MD [address] [place] [address] [place], [place] [address] PCP - General Family Medicine 07/23/19 documented as of this encounter
--- OUTSIDE RECORDS SUMMARY | 2024-10-02 22:00 | XMS_ITS | Encounter Summary ---
Author Organization [place] [address] Care Team Providers Care Flamer Sealer Name Role Phone Ryan Davis MD Primary Care Provider [phone] Reason for Visit * Reason Comments Sore Throat Cough , congestion Encounter Details Date Type Department Care Team (Late st Contact Info) Description 11/07/2023 8:40 AM EST Office Visit [facility] [place] [address] [place] [address] Ryan Davis MD [address] [place] [address] [place] [address] Acute bacterial sinusitis (Primary Dx); Essential hypertension; Hypothyroidism (acquired); Prediabetes Social History Tobacco Use Types Packs/Day Years Used Date Smoking Tobacco: Never Smokeless Tobacco: Never Alcohol Use Standard Drinks/Week [...] Sign Reading Time Taken Comments Blood Pressure 150/90 11/07/2023 8:44 AM EST Pulse 75 11/07/2023 8:44 AM EST Temperature 36.6 ??C (97.8 ??F) 11/07/2023 8:44 AM ES T Respiratory Rate 18 11/07/2023 8:44 AM EST Oxygen Saturation 95% 11/07/2023 8:44 AM EST Inhaled Oxygen Concentration - - Weight 121.1 kg (267 lb) 11/07/2023 8:44 AM EST Height 177.8 cm (5' 10 ) 11/07/2023 8:44 AM EST Body Mass Index 38.31 11/07/2023 8:44 AM EST documented in this encounter Functional Status * [...] No 08/13/2022 8:16 AM Roya Drummond RMA documented as of this encounter Mental Status * Because of a physical, mental or emotional condition, does this person have serious difficulty concentrating, remembering or making decisions? Answer Entry Date Author No 08/13/2022 8:16 AM Roya Drummond RMA documented in this encounter Ordered Prescriptions Prescription Sig Dispense Quantity Refills Last Filled Start Date End Date tamsulosin (FLOMAX) 0.4 mg Oral Capsule Take 1 Capsule by mouth nightly. 90 Capsule 3 11/07/2023 amLODIPine (NORVASC) 5 mg Oral TabletIndications: Essential hypertension Take 1 Tablet by mouth daily. 90 Tablet 3 11/07/2023 amoxicillin-clavul anate (AUGMENTIN) 875-125 mg Oral TabletIndications: Acute bacterial sinusitis Take 1 Tablet by mouth every 12 hours for 7 days. 14 Tablet 11/07/2023 4 documented in this encounter Progress Notes * Ryan Davis MD - 11/07/2023 8:40 AM EST Diagnoses and all orders for this visit: Acute bacterial sinusitis - amoxicillin-clavulanate (AUGMENTIN) 875-125 mg Oral Tablet; Take 1 Tablet by mouth every 12 hoursfor 7 days. Dispense: 14 Tablet; Refill: 0 Will treat acute bacterial sinusitis with antibiotics per above follow-up as needed. Essential hypertension - amLODIPine (NORVASC) 5 mg Oral Tablet; Take 1 Tablet by mouth daily. Dispense: 90 Tablet; Refill:3 Hypertension not at goal today, ran out of his blood pressure medication. Will restart amlodipine and follow-up blood pressure next visit. Hypothyroidism (acquired) Overview: On synthroid Check labs Get baseline u/s Orders: - TSH REFLEX; Future - HEMOGLOBIN A1C; Future Due for follow-up labs for hypothyroidism, will follow-up TSH and adjust dose as needed Prediabetes Overview: Lab Results Component Value Date HGBA1C 5.8 (H) 06/05/2020 HGBA1C 5.9 (H) 08/06/2019 Diet control Orders: - HEMOGLOBIN A1C; Future Diet controlled at this time follow-up A1c and will add on metformin if his A1c is increasing Other orders - tamsulosin (FLOMAX) 0.4 mg Oral Capsule; Take 1 Capsule by mouth nightly. Dispense: 90 Capsule; Refill: 3 Vitals: 11/07/23 0844 BP: (!) 150/90 Pulse: 75 Resp: 18 Temp: 97.8 ??F (36.6 ??C) SpO2: 95% Chief Complaint Patient presents with Sore Throat Cough , congestion HPI: He has a 1 week history of sinus pressure and drainage. Also has a sore scratchy throat. Mild dry nonproductive cough. No fevers or chills. No COVID-19 or flu exposure. He also has a history of prediabetes. He is not currently on any medications for this and is diet controlled. It has been over a year since his last A1c was collected. Hypertension: Home reporting of hypertension was reviewed at time of visit. AZALIA denies any episodes of dizziness, lightheadedness, presyncope, syncope, headache, or chest pain. AZALIA does not report any new symptoms of possible hypertension sequelae. The patient reports that he is not having significant issues or side effects of current medications/treatments. He is not checking his blood pressure at home c urrently. He has been out of his blood pressure medication as he thought he was just going to take 1 month of this and then stop it. No headaches or chest pain. Thyroid Disease: Patient following up for hypothyroidism. he is compliant with current treatment. Active symptoms reported today are none. Review of Systems HENT: Positive for congestion and sore throat. Respiratory: Positive for cough. Physical Exam Vitals reviewed. Constitutional: General: He is not in acute distress. Appearance: He is not ill-appearing or toxic-appearing. HENT: Right Ear: Tympanic membrane normal. Left Ear: Tympanic membrane normal. Nose: Congestion and rhinorrhea present. Mouth/Throat: Pharynx: Posterior oropharyngeal erythema present. No oropharyngeal exudate. Cardiovascular: Rate and Rhythm: Normal rate and regular rhythm. Pulmonary: Effort: Pulmonary effort is normal. Breath sounds: No wheezing, rhonchi or rales. Skin: Findings: No rash. Neurological: Mental Status: He is alert. * Astrid Caldwell - 11/07/2023 8:40 AM EST Venipuncture in the right antecubital vein with 21 gauge needle, length 1 1/2 inch. * Ryan Davis MD - 11/07/2023 8:40 AM EST His thyroid level was normal. His A1c was in a good range at 5.8%. No significant change in his P2vpljromko to his last visit, he can continue with his diet regimen and we can recheck this again in 6 months documented in this encounter Plan of Treatment [...] Davis MD documented as of this encounter Procedures Procedure Name Priority Date/Time Associated Diagnosis Comments TSH REFLEX Routine 11/07/2023 8:57 AM EST Hypothyroidism (acquired) HEMOGLOBIN A1C Routine 11/07/2023 8:57 AM EST Hypothyroidism (acquired) Prediabetes documented in this encounter Results * (ABNORMAL) HEMOGLOBIN A1C (11/07/2023 8:57 AM EST) Hgb A1C 5.8(H) 4.2 - 5.6 % 11/07/2023 6:58 PM EST [employer] Est. Avg Glucose 120 mg/dL 11/07/2023 6:58 PM EST [employer] Blood VENOUS BLOOD / Unknown Venipuncture / Unknown 11/07/2023 8:57 AM EST 11/07/2023 8:57 AM EST Narrative [facility] - 11/07/2023 6:58 PM EST REFERENCE RANGE: Normal: 4.0-5.6% Pre-diabetes: 5.7-6.4% Provisional diagnosis of diabetes: >6.4% Hgb F>10% and anything which shortens red cell survival, such as hemolytic anemia, or unstable hemoglobin variants such as HbSS, HbSC, or HbCC, will lower the HbA1c value associated with a given level of glycemic control. ? us Ryan Davis MD CHEMISTRY ORDERABLES Final Res ult [facility] [address] [place] [address] , [place] [address] * TSH REFLEX (11/07/2023 8:57 AM EST) TSH Reflex 3.270 0.270 - 4.200 mcIU/mL 11/07/2023 8:10 PM EST [facility] Blood VENOUS BLOOD / Unknown Venipuncture / Unknown 11/07/2023 8:57 AM EST 11/07/2023 8:57 AM EST Narrative [facility] - 11/07/2023 8:10 PM EST Ingestion of smooth doses of biotin (>5 mg/day) taken within 8 hours of drawing blood sample can interfere with this immunoassay test. us Ryan Davis MD CHEMISTRY ORDERABLES Final Res ult [facility] [address] [facility] , [place] [address] documented in this encounter Visit Diagnoses Diagnosis Acute bacterial sinusitis- Primary Acute sinusitis, unspecified Essential hypertension Unspecified essential hypertension Hypothyroidism (acquired) Unspecified hypothyroidism Prediabetes Other abnormal glucose documented in this encounter Discontinued Medications Medication Sig Discontinue Reason Start Date End Da te amLODIPine (NORVASC) 5 mg Oral TabletIndications:Essenti al hypertension Take 1 Tablet by mouth daily. Reorder 05/07/2023 11/07/2023 ipratropium (ATROVENT) 21 mcg (0.03 %) Nasl [place], Non-AerosolIndications:Se asonal allergic rhinitis, unspecified trigger 2 Sprays by Nasal route 3 times daily. Cancelled by 06/14/2021 11/07/2023 tamsulosin (FLOMAX) 0.4 mg Oral CapsuleIndications:Kidney stones Take 1 Capsule by mouth nightly. Reorder 05/07/2023 11/07/2023 documented as of this encounter Care Teams Flamer Sealer Relationship Specialty Start Date End Date Ryan Davis MD [address] [place] [address] [place] [address] PCP - General Family Medicine 07/23/19 documented as of this encounter
--- OUTSIDE RECORDS SUMMARY | 2024-10-02 22:00 | XMS_ITS | Encounter Summary ---
Author Organization [place] [address] Care Team Providers Care Inspector Optical Instrument Name Role Phone Ryan Davis MD Primary Care Provider [phone] Reason for Visit * Reason Onset Date Comments Appointment Needed 06/14/2021 sore throat , stuffy 3 days Encounter Details Date Type Department Care Team (Late st Contact Info) Description 06/14/2021 Telephone SEP [facility] [address] [place] [address] Ryan Davis MD [address] [place] [address] [place] [address] Appointment Needed (sore throat , stuffy 3 days) Social History Tobacco Use Types Packs/Day Years [...] of Assessment Author No 11/18/2019 3:26 PM KAITLYNN Powerana paula [facility] [employer] * Is the person blind or does he/she have serious difficulty seeing even when wearing glasses? Answer Date of Assessment Author No 11/18/2019 3:26 PM KAITLYNN PowerleyVince [employer] * Does this person have serious difficulty walking or climbing stairs? Answer Date of Assessment Author No 11/18/2019 3:26 PM KAITLYNN Flor [facility] [employer] * Does this person have difficulty dressing or bathing? Answer Date of Assessment Author No 11/18/2019 3:26 PM KAITLYNN PowerleyVince [employer] * Because of a physical, mental or emotional condition, does this person have difficulty doing errands alone such as visiting a doctor's office or shopping? Answer Date of Assessment Author No 11/18/2019 3:26 PM KAITLYNN FlorVince [employer] documented as of this encounter Mental Status * Because of a physical, mental or emotional condition, does this person have serious difficulty concentrating, remembering or making decisions? Answer Entry Date Author No 11/18/2019 3:26 PM KAITLYNN Flor [facility] [employer] documented in this encounter Miscellaneous Notes * Telephone Encounter - Mariaa Keith CCMA - 06/14/2021 1:05 PM EDT Left message with 2:40 on schedule * Telephone Encounter - Ryan Davis MD - 06/14/2021 12:17 PM EDT I can see at 1:40 * Telephone Encounter - Ryan Davis MD - 06/14/2021 12:16 PM EDT I can see him at 1:40 * Telephone Encounter - Kirsten Doty - 06/14/2021 11:27 AM EDT Who wants to work in * Telephone Encounter - Angeline Sauer - 06/14/2021 11:22 AM EDT Appointment Needed Appointment Requested By: Patient Provider Preference: Any Available Type of Appt Needed: Acute sore throat , stuffy 3 days Requested Timeframe: Today Additional Notes: documented in this encounter Plan of Treatment [...] on filedocumented in this encounter Care Teams Inspector Optical Instrument Relationship Specialty Start Date End Date Ryan Davis MD [address] [place] [address] [place] [address] PCP - General Family Medicine 07/23/19 documented as of this encounter
--- OUTSIDE RECORDS SUMMARY | 2024-10-02 22:00 | XMS_ITS | Encounter Summary ---
Author Organization [place] [address] Care Team Providers Care Heel Shaver Name Role Phone Ryan Davis MD Primary Care Provider [phone] Reason for Visit * Reason Onset Date Comments Results 06/11/2023 Cologuard Encounter Details Date Type Department Care Team (Late st Contact Info) Description 06/11/2023 Patient Outreach SEP [facility] [address] [place] [address] Ryan Davis MD [address] [place] [address] [place] [address] Results (Cologuard) Social History Tobacco Use Types Packs/Day Years [...] Assessment Author No 08/13/2022 8:16 AM EDT Janette Roya cardoza Elisabeth, ROBIN * Does this person have serious difficulty walking or climbing stairs? Answer Date of Assessment Author No 08/13/2022 8:16 AM EDT Janette Roya cardoza Elisabeth ROBIN * Does this person have difficulty dressing or bathing? Answer Date of Assessment Author No 08/13/2022 8:16 AM EDT Janette Roya cardoza Elisabeth ROBIN * Because of a physical, mental or emotional condition, does this person have difficulty doing errands alone such as visiting a doctor's office or shopping? Answer Date of Assessment Author No 08/13/2022 8:16 AM EDT Janette Roya cardoza Elisabeth ROBIN documented as of this encounter Mental Status * Because of a physical, mental or emotional condition, does this person have serious difficulty concentrating, remembering or making decisions? Answer Entry Date Author No 08/13/2022 8:16 AM EDT JadaRoya decker nani Elisabeth ROBIN documented in this encounter Progress Notes * Shana Chaparro RN - 06/11/2023 9:14 AM EDT RN contacted patient regarding Negative cologuard test result. Patient aware of results, verbalizedunderstanding. documented in this encounter Plan of Treatment [...] on filedocumented in this encounter Care Teams Heel Shaver Relationship Specialty Start Date End Date Ryan Davis MD [address] [place] [address] [place] [address] PCP - General Family Medicine 07/23/19 documented as of this encounter
--- OUTSIDE RECORDS SUMMARY | 2024-10-02 22:00 | XMS_ITS | Encounter Summary ---
Author Organization [facility] [place] [address] Care Team Providers Care Patternmaker Pressure Cast Name Role Phone Ryan Davis MD Primary Care Provider [phone] Encounter Details Date Type Department Care Team (Latest Contact Info) Description 06/14/2021 Travel Social History Tobacco Use Types Packs/Day [...] have Coronavirus / COVID-19? No / Unsure 06/14/2021 2:36 PM EDT documented as of this encounter [...] Assessment Author No 11/18/2019 3:26 PM Vince oRman MA * Because of a physical, mental [...] on filedocumented in this encounter Care Teams Patternmaker Pressure Cast Relationship Specialty Start Date End Date Ryan Davis MD [address] [place] [address] [place] [address] PCP - General Family Medicine 07/23/19 documented as of this encounter
--- OUTSIDE RECORDS SUMMARY | 2024-10-02 22:00 | XMS_ITS | Encounter Summary ---
Author Organization [place] [address] Care Team Providers Care Cable Splicer Assistant Name Role Phone Ryan Davis MD Primary Care Provider [phone] Reason for Visit * Reason Comments Medication Refill Encounter Details Date Type Department Care Team (Late st Contact Info) Description 07/16/2024 Refill [facility] [address] [place] [address] Ryan Davis MD [address] [place] [address] [place] [address] Medication Refill Social History Tobacco Use Types [...] Roya Savage RMA documented in this encounter Ordered Prescriptions Prescription Sig Dispense Quantity Refills Last Filled Start Date End Date LEVOthyroxine (SYNTHROID) 25 mcg Oral TabletIndications:H ypothyroidism (acquired) Take 1 Tablet by mouth daily. 100 Tablet 2 07/16/2024 documented in this encounter Miscellaneous Notes * Telephone Encounter - Mariaa Aldrich CPhT - 07/16/2024 7:35 PM EDT Levothyroxine 25- Future Visit: n/a Last Assessed Visit: 06/29/24 Follow-Up Date: 06/29/25 All protocols passed. Refills approved and sent to requesting pharmacy. Routed to [facility] if applicable. documented in this encounter Plan of Treatment [...] (SYNTHROID) 25 mcg Oral TabletIndications:Hypoth yroidism (acquired) Take 1 Tablet by mouth daily. 05/23/2023 07/16/2024 documented as of this encounter Care Teams Cable Splicer Assistant Relationship Specialty Start Date End Date Ryan Davis MD [address] [place] [address] [address] [place], [place] [address] PCP - General Family Medicine 07/23/19 documented as of this encounter
--- OUTSIDE RECORDS SUMMARY | 2024-10-02 22:00 | XMS_ITS | Encounter Summary ---
Author Organization [place] [address] Care Team Providers Care Wood Coater Name Role Phone Ryan Davis MD Primary Care Provider Encounter Details Date Type Department Care Team (Late st Contact Info) Description 12/19/2022 Lab Requisition [facility] [place] [id number] Odilon Kee MD [address] [phone] Other specified complications of surgical and medical care, not elsewhere classified, initial encounter Social History Tobacco Use Types Packs/Day Years Used Date Smoking Tobacco: Never Smokeless Tobacco: Never Alcohol Use Standard Drinks/Week Comments No 0 (1 standard drink = 0.6 oz pur e alcohol) PHQ-2 Answer Date Recorded PHQ-2 Total Score 0 08/13/2022 Sex and Gender Information Value Date Recorded [...] Assessment Author No 08/13/2022 8:16 AM EDT Heiert, R ebecca Elisabeth, RMA * Does this person have serious [...] Roya Drummond RMA documented in this encounter Plan of Treatment [...] Procedure Name Priority Date/Time Associated Diagnosis Comments WOUND CULTURE (STAIN INCLUDED) Routine 12/17/2022 10:30 AM EST Other specified complications of surgical and medical care, not elsewhere classified, initial encounter documented in this encounter Results * (ABNORMAL) WOUND CULTURE (STAIN INCLUDED) (12/17/2022 10:30 AM EST) Culture Positive Growth(A) 2022 1:57 PM EST [facility] Culture Abundant growth of Staphylococcus aureus SUSCEPTIB ILITY RESULT 12/23/2022 1:57 PM EST [facility] Culture Abundant growth of Mixed Skin prabha SUSCEPTIB ILITY RESULT 12/23/2022 1:57 PM EST [facility] Comment:No further workup. Stain Rare WBCs(A) 12/23/2022 1:57 PM EST [facility] Stain Few Gram positive cocci(A) 12/23/2022 1:57 PM EST [facility] CHEEK STRUCTURE / Unknown 12/17/2022 10:30 AM EST 12/19/2022 10:04 AM EST Narrative Organism Antibiotic Method Susceptibility Staphylococcus aureus Ampicillin SUSCEPTIBILITY RESU LT Staphylococcus aureus Benzylpenicillin SUSCEPTIBILITY RESULT 0.12 ug/mL: Resistant Staphylococcus aureus Beta Lactamase SUSCEPTIBILITY RE SULT Staphylococcus aureus Ciprofloxacin SUSCEPTIBILITY RES ULT <=0.5 ug/mL: Susceptible Staphylococcus aureus Clindamycin SUSCEPTIBILITY RESU LT <=0.25 ug/mL: Susceptible Staphylococcus aureus Erythromycin SUSCEPTIBILITY RESU LT <=0.25 ug/mL: Susceptible Staphylococcus aureus Gentamicin SUSCEPTIBILITY RESU LT <=0.5 ug/mL: Susceptible Staphylococcus aureus Gentamicin synergy SUSCEPTIBILIT Y RESULT Staphylococcus aureus Levofloxacin SUSCEPTIBILITY RESU LT 0.25 ug/mL: Susceptible Staphylococcus aureus Linezolid SUSCEPTIBILITY RESU LT Staphylococcus aureus Moxifloxacin SUSCEPTIBILITY RESU LT <=0.25 ug/mL: Susceptible Staphylococcus aureus Nitrofurantoin SUSCEPTIBILITY RE SULT Staphylococcus aureus Oxacillin SUSCEPTIBILITY RESU LT 0.5 ug/mL: Susceptible Staphylococcus aureus Synercid SUSCEPTIBILITY RESU LT Staphylococcus aureus Rifampin SUSCEPTIBILITY RESU LT <=0.5 ug/mL: Susceptible Staphylococcus aureus Streptomycin synergy SUSCEPTIBIL ITY RESULT Staphylococcus aureus Tetracycline SUSCEPTIBILITY RESU LT <=1 ug/mL: Susceptible Staphylococcus aureus Tigecycline SUSCEPTIBILITY RESU LT Staphylococcus aureus Trimethoprim/Sulfa metho xazole SUSCEPTIBILITY RESULT <=10 ug/mL: Susceptible Staphylococcus aureus Vancomycin SUSCEPTIBILITY RESU LT 1 ug/mL: Susceptible Comment:Rifampin and Gentami lester should not be used alone for antimicrobial therapy. For methicillin resistant staphylococci, ciprofloxacin should also not be used alone. us Odilon Kee MD MICROBIOLOGY - GENERAL ORDER [place] Final Result [facility] [place] [address] documented in this encounter Visit Diagnoses Diagnosis Other specified complications of surgical and medical care, not elsewhere classified, initial encounter documented in this encounter Care Teams Wood Coater Relationship Specialty Start Date End Date Ryan Davis MD [address] [place] [address] [place] [address] PCP - General Family Medicine 07/23/19 documented as of this encounter
--- OUTSIDE RECORDS SUMMARY | 2024-10-02 22:00 | XMS_ITS | Encounter Summary ---
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 He is interested in pursuing +2.00 OTC readers for now. 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 Mild glare symptoms only with rain at night when driving. This ishis first eye exam ever today. 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 No indication for surgery at this time, will continue to monitor. May need cataract surgery sooner than average. * Lorenzo Arellano, OD - 06/10/2024 10:35 AM EDT Optometry Assessment and Plan: Problem List Cataract of both eyes - Primary Current Assessment & Plan Patient educated about cataracts. Mild glare symptoms only with rain at night when driving. This ishis first eye exam ever today. 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 No indication for surgery at this time, will continue to monitor. May need cataract surgery sooner than average. 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 He is interested in pursuing +2.00 [employer] readers for now. Patient instructed to return or call immediately with any change in vision or symptoms. Return in about 1 year (around 06/10/2025) for comprehensive exam, glare testing. Subjective: Patient ID: AZALIA Herrera is a 54 y.o. male. Chief Complaint Patient presents with Dilated Fundus Exam Lab Results Component Value Date HGBA1C 5.8 (H) 11/07/2023 HPI New pt presents for comprehensive eye exam. Pt says he has never had an eye exam. Pt says he finds himself squinting when trying to look at small print. Pt does have OTC readers (+1.50?), pt says he rarely uses these. Pt noted today after vision test both eyes were watering. Pt says sometimes eyes may itch. Pt says he rarely uses eye drops but does have them at home. Pt not sure of brand. Pt says he has some concerns with cancer around eyes. Pt states he was told my derm to be checked out here because they removed a few spots from variesspots on body. Pt denies eye pain, floaters, flashes. Pt says maybe he gets double vision when looking at small print, pt may see an 11 vs a 1 but says focusing helps. No prev CL use, prev eye injuries, prev eye sx. +mother w/ wet mac (?- gets injections). +HTN Past Medical History: Diagnosis Date Essential hypertension 05/07/2023 Hypothyroidism (acquired) 08/07/2019 Past Surgical History: Procedure Laterality Date MALIGNANT SKIN LESION EXCISION 11/10/2009 L cheek SKIN CANCER EXCISION Family History Problem Relation Age of Onset Macular Degen Mother Diabetes Mother Diet controlled DM 2 Kidney Disease Father possible cancer Colon Cancer Maternal Aunt Cancer Maternal Uncle Lung Cancer Maternal Uncle Diabetes Maternal Uncle Cancer Paternal Uncle Lung Cancer Paternal Grandfather Prostate Cancer Neg Hx Glaucoma Neg Hx Social History Socioeconomic History Marital status: Spouse name: Not on file Number of children: Not on file Years of education: Not on file Highest education level: Not on file Occupational History Not on file Tobacco Use Smoking status: Never Smokeless tobacco: Never Vaping Use Vaping status: Never Used Substance and Sexual Activity Alcohol use: Yes Drug use: Never Sexual activity: Yes Partners: Female Other Topics Concern Not on file Social History Narrative Merged History Encounter Social Determinants of Health Financial Resource Strain: Not on file Food Insecurity: Not on file Transportation Needs: Not on file Physical Activity: Not on file Stress: Not on file Social Connections: Not on file Intimate Partner Violence: Not on file Housing Stability: Not on file ROS Positive for: Eyes Negative for: Constitutional, Gastrointestinal, Neurological, Skin, Genitourinary, Musculoskeletal,HENT, Endocrine, Cardiovascular, Respiratory, Psychiatric, Allergic/Imm, Heme/Lymph Current Outpatient Medications: amLODIPine (NORVASC) 5 mg Oral Tablet, Take 1 Tablet by mouth daily., Disp: 90 Tablet, Rfl: 3 LEVOthyroxine (SYNTHROID) 25 mcg Oral Tablet, Take 1 Tablet by mouth daily., Disp: 90 Tablet, Rfl: 3 DM/PSEUDOEPHED/ACETAMINOPHEN (VICKS DAYQUIL ORAL), Take by mouth as needed. (Patient not taking: Reported on 06/10/2024), Disp: , Rfl: loratadine (CLARITIN) 10 mg Oral Tablet, Take 1 Tab by mouth daily as needed. (Patient not taking: Reported on 06/10/2024), Disp: 30 Tab, Rfl: 6 tamsulosin (FLOMAX) 0.4 mg Oral Capsule, Take 1 Capsule by mouth nightly. (Patient not taking: Reported on 06/10/2024), Disp: 90 Capsule, Rfl: 3 Objective: Eye Exam: Base Eye Exam Visual Acuity (Snellen - Linear) Right Left Dist sc 20/30 +2 20/25 +3 Tonometry (I-care, 10:38 AM) Right Left Pressure 19 20 Pupils Pupils Dark Light Shape React APD Right PERRL 4 2.5 Round Brisk None Left PERRL 4 2.5 Round Brisk None Visual Richard (Counting fingers) Right Left Full Full Extraocular Movement Right Left Full Full Neuro/Psych Oriented x3: Yes Mood/Affect: Normal Dilation Both eyes: 1.0% Mydriacyl, 2.5% Phenylephrine @ 10:38 AM Edited by: Carlyn Mack COA Slit Lamp and Fundus Exam External Exam Right Left External Normal Normal Slit Lamp Exam Right Left Lids/Lashes Normal Normal Conjunctiva/Sclera White and quiet White and quiet Cornea Clear Clear Anterior Chamber Deep and quiet Deep and quiet Iris Normal Normal Lens anterior horizontal linear opacity (congenital?), 1-2+ NS anterior horizontal linear opacity (congenital?), 1-2+ NS Vitreous Normal Normal Fundus Exam Right Left Disc Normal Normal C/D Ratio 0.50 0.50 Macula flat flat Vessels Normal Normal Periphery no HTD temporal pavingstone Edited by: Lorezno Arellano OD Refraction Manifest Refraction Sphere Cylinder [facility] Right +1.00 -0.50 010 20/25+3 Left -0.25 -0.50 170 20/20-2 first time Cycloplegic Refraction Sphere Cylinder [facility] Add Right +1.00 -0.75 023 20/20 +2.00 Left -0.25 Sphere 20/20 +2.00 Final Rx Sphere Cylinder [facility] Add Right +1.00 -0.75 023 +2.00 Left -0.25 Sphere +2.00 Expiration Date: 06/10/2026 Edited by: Carlyn Mack COA; Lorenzo Arellano OD Procedure: Assessment and Plan: (see top of note for details) documented in this encounter Plan of Treatment Not on file documented as of this encounter Goals Goal Patient Goal Type Associated Problems Recent Progress Patient-Stated? 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 Refractive error Unspecified disorder of refraction and accommodation documented in this encounter Eye Exam Visual Acuity (Snellen - Linear) Right eye Left eye Dist sc 20/30 +2 20/25 +3 Tonometry (I-care, 10:38 AM) Right eye Left eye Pressure 19 20 Pupils Pupils Dark Light Shape React APD Right eye PERRL 4 2.5 Round Brisk None Left eye PERRL 4 2.5 Round Brisk None Visual Richard (Counting fingers) Right eye Left eye Full Full Extraocular Movement Right eye Left eye Full Full Neuro/Psych Oriented x3: Yes Mood/Affect: Normal Dilation Both eyes: 1.0% Mydriacyl, 2 .5% Phenylephrine @ 10:38 AM External Exam Right eye Left eye External Normal Normal Slit Lamp Exam Right eye Left eye Lids/Lashes Normal Normal Conjunctiva/Sclera White and quiet White and guero et Cornea Clear Clear Anterior Chamber Deep and quiet Deep and quiet Iris Normal Normal Lens anterior horizontal linear opacity (congenital?), 1-2+ NS anterior horizontal linear opacity (congenital?), 1-2+ NS Anterior Vitreous Normal Normal Fundus Exam Right eye Left eye Disc Normal Normal C/D Ratio 0.50 0.50 Macula flat flat Vessels Normal Normal Periphery no HTD temporal pavings tone Manifest Refraction Sphere Cylinder [facility] Right eye +1.00 -0.50 010 20/25+3 Left eye -0.25 -0.50 170 20/20-2 first time Cycloplegic Refraction Sphere Cylinder [facility] Add Right eye +1.00 -0.75 023 20/20 +2.00 Left eye -0.25 Sphere 20/20 +2.00 Final Rx Sphere Cylinder [facility] Add Right eye +1.00 -0.75 023 +2.00 Left eye -0.25 Sphere +2.00 Expiration Date: 06/10/2026 Care Teams Cyber Special Agent Relationship Specialty Start Date End Date Darci Davis MD [address] [place] [address] [address] [place], [place] [address] PCP - General Family Medicine 07/23/19 documented as of this encounter
--- OUTSIDE RECORDS SUMMARY | 2024-10-02 22:00 | XMS_ITS | Encounter Summary ---
Author Organization [facility] [place] [address] Care Team Providers Care Stock Manager Name Role Phone Ryan Davis MD Primary Care Provider [phone] Reason for Referral * Genetic Lab Test (Routine) - Closed Specialty Diagnoses / Procedures Referred By Contdelvis t Referred To Contact Diagnoses Screening for colon cancer [facility] [place] MD [address] [place] [address] [place] [address] Phone: tel: fax: Referral ID Status Reason Start Date Expiration Date Visits Re quested Visits Authorized [id number] Closed 05/23/2023 05/22/2024 1 1 Reason for Visit * Reason Comments Cough Sore throat , x2 wee ks Encounter Details Date Type Department Care Team (Late st Contact Info) Description 05/23/2023 11:00 AM EDT Office Visit [facility] [place] [address] [place] [id number] Ryan Davis MD [address] [place] [address] [place] [address] Viral URI (Primary Dx); Screening for colon cancer; Hypothyroidism (acquired) Social History Tobacco Use Types Packs/Day Years [...] Sign Reading Time Taken Comments Blood Pressure 142/80 05/23/2023 10:59 AM EDT Pulse 88 05/23/2023 10:59 AM EDT Temperature 36.4 ??C (97.5 ??F) 05/23/2023 10:59 AM E DT Respiratory Rate 18 05/23/2023 10:59 AM EDT Oxygen Saturation 96% 05/23/2023 10:59 AM EDT Inhaled Oxygen Concentration - - Weight 116.6 kg (257 lb) 05/23/2023 10:59 AM EDT Height 177.8 cm (5' 10 ) 05/23/2023 10:59 AM EDT Body Mass Index 36.88 05/23/2023 10:59 AM EDT documented in this encounter Functional Status * Is the person deaf or does he/she have serious difficulty hearing? Answer Date of Assessment Author No 08/13/2022 8:16 AM EDRoya Jovel RMA * Is the person blind or [...] Date benzonatate (TESSALON) 100 mg Oral CapsuleIndications :Viral URI Take 1 Capsule by mouth 3 times daily as needed for Cough for up to 10 days. 30 Capsule 05/23/2023 3 LEVOthyroxine (SYNTHROID) 25 mcg Oral TabletIndications: Hypothyroidism (acquired) Take 1 Tablet by mouth daily. 90 Tablet 3 05/23/2023 4 documented in this encounter Progress Notes * Ryan Davis MD - 05/23/2023 11:00 AM EDT Diagnoses and all orders for this visit: Viral URI - benzonatate (TESSALON) 100 mg Oral Capsule; Take 1 Capsule by mouth 3 times daily as needed for Cough for up to 10 days. Dispense: 30 Capsule; Refill: 0 Advised supportive care for viral URI symptoms follow-up as needed if symptoms worsen or fail to improve. Trial of cough suppressant. If cough persist will proceed with chest x-ray to evaluate for possible subtle pneumonia. Continue thyroid replacement medication for hypothyroidism follow-up TSH atnext visit. Screening for colon cancer - COLOGUARD; Future Hypothyroidism (acquired) Overview: On synthroid Check labs Get baseline u/s Orders: - LEVOthyroxine (SYNTHROID) 25 mcg Oral Tablet; Take 1 Tablet by mouth daily. Dispense: 90 Tablet; Refill: 3 Vitals: 05/23/23 1059 BP: (!) 142/80 Pulse: 88 Resp: 18 Temp: 97.5 ??F (36.4 ??C) SpO2: 96% Chief Complaint Patient presents with Cough Sore throat , x2 weeks HPI: Thyroid Disease: Patient following up for hypothyroidism. he is compliant with current treatment. Active symptoms reported today are none. He has a 2-week history of dry nonproductive cough. No fevers or chills. No body aches. No shortness of breath or trouble breathing. No associated nausea or vomiting. No history of GERD symptoms. No postnasal drip. No recent medication changes. Review of Systems HENT: Positive for sore throat. Respiratory: Positive for cough. Cardiovascular: Negative for chest pain. Gastrointestinal: Negative [...] Neurological: Mental Status: He is alert. * Shana Chaparro RN - 05/23/2023 11:00 AM EDT Laboratory results received, patient notified by: Patient informed directly For future outreach see Patient Outreach encounter dated 06/11/2023. documented in this encounter Plan of Treatment [...] maintain an ideal body weight General No yRan Davis MD Stay Tobacco Free Lifestyle No Ryan Davis MD documented as of this encounter Procedures Procedure Name Priority Date/Time Associated Diagnosis Comments [facility] Routine 06/03/2023 11:00 AM EDT Screening for colon cancer documented in this encounter Results * [facility] (06/03/2023 11:00 AM EDT) COLOGUARD CLINICAL REPORT Negative Negative [facility] Comment: NEGATIVE TEST RESULT. A negative Cologuard result indicates a low likelihood that a colorectal cancer (CRC) or advanced adenoma (adenomatous polyps with more advanced pre-malignant features) ??is present. The chance that a person with a negative Cologuard test has a colorectal cancer is less than 1 in 1500 (negative predictive value >99.9%) or has an ??advanced adenoma is less than ??5.3% (negative predictive value 94.7%). These data are based on a prospective cross-sectional study of 10,000 individuals at average risk for colorectal cancer who were screened with both Cologuard and colonoscopy. (Zhen Golden. et al, N Engl J Med 2014;370(14):2836-1444) The normal value (reference range) for this assay is negative. COLOGUARD RE-SCREENING RECOMMENDATION: Periodic colorectal cancer screening is an important part of preventive healthcare for asymptomatic individuals at average risk for colorectal cancer. ??Following a negative Cologuard result, the [place] and U.S. Multi-Society Task Force screening guidelines recommend a Cologuard re-screening interval of 3 years. References: [place] Guideline for Colorectal Cancer Screening: https://www.cancer.org/cancer/oyhba-llvvgj-ferkcw/piizairyy-edilaikei-vpxyuma/ac s-rec ommendations.html.; Humza PEREZ, Faustino FRANKLIN, Yvette CERVANTES, Colorectal Cancer Screening: Recommendations for Physicians and Patients from the U.S. Multi-Society Task Force on Colorectal Cancer Screening , Am J Gastroenterology 2017; 112:2534-1785. TEST DESCRIPTION: Composite algorithmic analysis of stool DNA-biomarkers with hemoglobin immunoassay. ?? Quantitative values of individual biomarkers are not reportable and are not associated with individual biomarker result reference ranges. Cologuard is intended for colorectal cancer screening of adults of either sex, 45 years or older, who are at average-risk for colorectal cancer (CRC). Cologuard has been approved for use by the U.S. FDA. The performance of Cologuard was established in a cross sectional study of average-risk adults aged 50-84. Cologuard performance in patients ages 45 to 49 years was estimated by sub-group analysis of near-age groups. Colonoscopies performed for a positive result may find as the most clinically significant lesion: colorectal cancer [4.0%], advanced adenoma (including sessile serrated polyps greater than or equal to 1cm diameter) [20%] or non- advanced adenoma [31%]; or no colorectal neoplasia [45%]. These estimates are derived from a prospective cross-sectional screening study of 10,000 individuals at average risk for colorectal cancer who were screened with both Cologuard and colonoscopy. (Zhen Garber et al, N Engl J Med 2014;370(14):9162-9757.) Cologuard may produce a false negative or false positive result (no colorectal cancer or precancerous polyp present at colonoscopy follow up). A negative Cologuard test result does not guarantee the absence of CRC or advanced adenoma (pre-cancer). The current Cologuard screening interval is every 3 years. ([employer] [employer] and U.S. Multi-Society Task Force). Cologuard performance data in a 10,000 patient pivotal study using colonoscopy as the reference method can be accessed at the following location: www.[employer]/results. Additional description of the Cologuard test process, warnings and precautions can be found at www.[employer].com. Stool 06/03/2023 11:0 0 AM EDT 06/04/2023 4:49 PM EDT us Ryan Davis MD [employer] - ORDERABLES [facility] al Result Performing Organization Address City/State/[facility] Co de Phone Number Turn [place] [id number] [employer] [address] [place] [phone] documented in this encounter Visit Diagnoses Diagnosis Viral URI- Primary Acute upper respiratory infections of unspecified site Screening for colon cancer Special screening for malignant neoplasms, colon Hypothyroidism (acquired) Unspecified hypothyroidism documented in this encounter Discontinued Medications Medication Sig Discontinue Reason Start Date End Da te LEVOthyroxine (SYNTHROID) 25 mcg Oral TabletIndications:Hypoth yroidism (acquired) TAKE ONE TABLET BY MOUTH ONCE DAILY Reorder 11/05/2022 05/23/2023 documented as of this encounter Care Teams Stock Manager Relationship Specialty Start Date End Date Ryan Davis MD [address] [place] [address] [place] [address] PCP - General Family Medicine 07/23/19 documented as of this encounter
--- OUTSIDE RECORDS SUMMARY | 2024-10-02 22:00 | XMS_ITS | Encounter Summary ---
Author Organization [place] [address] Care Team Providers Care Foam Fabricator Name Role Phone Ryan Davis MD Primary Care Provider [phone] Reason for Visit * Reason Comments Medication Refill Encounter Details Date Type Department Care Team (Late st Contact Info) Description 11/05/2022 Refill [facility] [address] [place] [address] Daniela Stringer APRN [address] [place] [address] Medication Refill Social History Tobacco Use Types [...] 08/13/2022 8:16 AM Roya Drummond RMVince * Because of a physical, mental or [...] BY MOUTH ONCE DAILY 90 Tablet 3 11/05/2022 05/23/2023 documented in this encounter Plan of Treatment [...] TAKE ONE TABLET BY MOUTH ONCE DAILY 09/14/2021 11/05/2022 documented as of this encounter Care Teams Foam Fabricator Relationship Specialty Start Date End Date Ryan Davis MD [address] [place] [address] [place] [address] PCP - General Family Medicine 07/23/19 documented as of this encounter
--- OUTSIDE RECORDS SUMMARY | 2024-10-02 22:00 | XMS_ITS | Encounter Summary ---
Author [place] [address] Care Team Providers Care Can Handler Name Role Phone Ryan Davis MD Primary Care Provider [phone] Reason for Visit * Reason Comments Other Knot on abdomen , no ticed 2 weeks ago Encounter Details Date Type Department Care Team (Late st Contact Info) Description 06/29/2024 9:30 AM EDT Office Visit [facility] [place] [address] [place] [address] Ryan Davis MD [address] [place] [address] [place] [address] Sebaceous cyst (Primary Dx); Essential hypertension; Hypothyroidism (acquired); Prediabetes [...] Sign Reading Time Taken Comments Blood Pressure 158/92 06/29/2024 9:36 AM EDT Pulse 68 06/29/2024 9:36 AM EDT Temperature 37.1 ??C (98.7 ??F) 06/29/2024 9:36 AM ED T Respiratory Rate 18 06/29/2024 9:36 AM EDT Oxygen Saturation 99% 06/29/2024 9:36 AM EDT Inhaled Oxygen Concentration - - Weight 121.1 kg (267 lb) 06/29/2024 9:36 AM EDT Height 177.8 cm (5' 10 ) 06/29/2024 9:36 AM EDT Body Mass Index 38.31 06/29/2024 9:36 AM EDT documented in this encounter Functional [...] EDRoya Jovel RMA documented in this encounter Patient Instructions * Attachments The following attachments cannot be sent through Care Everywhere. * DASH diet (Polish) documented in this encounter Progress Notes * Ryan Davis MD - 06/29/2024 9:30 AM EDT Assessment Diagnoses and all orders for this visit: Sebaceous cyst Reviewed with him today that his left sided abdominal wall sebaceous cyst is a benign finding. No concerns for infection at this time. Vies to follow-up if he develops any pain or concern for infection at the site of the cyst. Essential hypertension Hypertension not at goal today, advised DASH diet and better medication compliance for his blood pressure medication. Follow-up with home blood pressure monitoring in 2 weeks for further medication adjustments Hypothyroidism (acquired) Overview: On synthroid Check labs Get baseline u/s Orders: - TSH REFLEX; Future Follow-up TSH will adjust thyroid replacement medication based on lab results Prediabetes Overview: Lab Results Component Value Date HGBA1C 5.8 (H) 06/05/2020 HGBA1C 5.9 (H) 08/06/2019 Diet control Orders: - HEMOGLOBIN A1C; Future Diet controlled at this time, follow-up A1c if trending up will start on metformin Progress Note: Vitals: 06/29/24 0936 BP: (!) 158/92 Pulse: 68 Resp: 18 Temp: 98.7 ??F (37.1 ??C) TempSrc: Tympanic SpO2: 99% Weight: 267 lb (121.1 kg) Height: 5' 10 (1.778 m) Body mass index is 38.31 kg/m??. SUBJECTIVE: Chief Complaint Patient presents with Other Knot on abdomen , noticed 2 weeks ago HPI: Hypertension: Home reporting of hypertension was reviewed at time of visit. AZALIA denies any episodes of dizziness, lightheadedness, presyncope, syncope, headache, or chest pain. AZALIA does not report any new symptoms of possible hypertension sequelae. The patient reports that he is not having significant issues or side effects of current medications/treatments. He has a history of hypertension and is intermi ttently compliant with his amlodipine. Missed his dose of his amlodipine last night. He has a cyst on his left side of his abdominal wall. It is gradually increased in size over the past month or 2 but is not tender. No fevers or chills. No discharge. Thyroid Disease: Patient following up for hypothyroidism. he is compliant with current treatment. Active symptoms reported today are none He has a history of prediabetes and is due for follow-up labs. Is diet controlled at this time. Notcurrently on metformin.. Review of Systems Constitutional: Negative for activity change, chills, fatigue and fever. Respiratory: Negative for cough, choking and shortness of breath. Cardiovascular: Negative for chest pain, palpitations and leg swelling. Gastrointestinal: Negative for constipation, diarrhea, nausea and vomiting. Skin: Negative for pallor, rash and wound. OBJECTIVE: Physical Exam Vitals reviewed. Constitutional: General: He is not in acute distress. Appearance: He is well-developed. He is not diaphoretic. HENT: Head: Normocephalic and atraumatic. Eyes: Pupils: Pupils are equal, round, and reactive to light. Cardiovascular: Rate and Rhythm: Normal rate and regular rhythm. Pulmonary: Effort: Pulmonary effort is normal. Breath sounds: Normal breath sounds. No wheezing. Skin: Findings: No rash. Comments: Left abdominal wall sebaceous cyst, approximately 1.5 cm in diameter. No associated tenderness. No skin overlying skin erythema. No drainage. Neurological: Mental Status: He is alert and oriented to person, place, and time. Psychiatric: Behavior: Behavior normal. Thought Content: Thought content normal. Judgment: Judgment normal. * Astrid Caldwell - 06/29/2024 9:30 AM EDT Venipuncture in the right antecubital vein with 21 gauge needle, length 1 1/2 inch. * Ryan Davis MD - 06/29/2024 9:30 AM EDT His thyroid level is normal. A1c was stable at 5.8%. No changes needed to his medications at this time. documented in this encounter Plan of Treatment [...] Date/Time Associated Diagnosis Comments TSH REFLEX Routine 06/29/2024 10:13 AM EDT Hypothyroidism (acquired) HEMOGLOBIN A1C Routine 06/29/2024 10:13 AM EDT Prediabetes documented in this encounter Results * (ABNORMAL) HEMOGLOBIN A1C (06/29/2024 10:13 AM EDT) Hgb A1C 5.8(H) 4.2 - 5.6 % 06/29/2024 4:10 PM EDT [facility] Est. Avg Glucose 120 mg/dL 06/29/2024 4:10 PM EDT [facility] Blood VENOUS BLOOD / Unknown Venipuncture / Unknown 06/29/2024 10:13 AM EDT 06/29/2024 10:13 AM EDT Narrative [facility] - 06/29/2024 4:10 PM EDT REFERENCE RANGE: Normal: 4.0-5.6% Pre-diabetes: 5.7-6.4% Provisional diagnosis of diabetes: >6.4% Hgb F>10% and anything which shortens red cell survival, such as hemolytic anemia, or unstable hemoglobin variants such as HbSS, HbSC, or HbCC, will lower the HbA1c value associated with a given level of glycemic control. ? us Ryan Davis MD CHEMISTRY ORDERABLES Final Res ult [facility] [address] [place] [address] , [place] [address] [facility] [address] [place] [id number] * TSH REFLEX (06/29/2024 10:13 AM EDT) TSH Reflex 2.170 0.270 - 4.200 mcIU/mL 06/29/2024 5:37 PM EDT [facility] Blood VENOUS BLOOD / Unknown Venipuncture / Unknown 06/29/2024 10:13 AM EDT 06/29/2024 10:13 AM EDT Narrative [facility] - 06/29/2024 5:37 PM EDT Ingestion of smooth doses of biotin (>5 mg/day) taken within 8 hours of drawing blood sample can interfere with this immunoassay test. us Ryan Davis MD CHEMISTRY ORDERABLES Final Res ult [facility] [address] [facility] , [place] [address] documented in this encounter Visit Diagnoses Diagnosis Sebaceous cyst- Primary Essential hypertension Unspecified essential hypertension Hypothyroidism (acquired) Unspecified hypothyroidism Prediabetes Other abnormal glucose documented in this encounter Discontinued Medications Medication Sig Discontinue Reason Start Date End Da te DM/PSEUDOEPHED/ACETAMINOP HEN (VICKS DAYQUIL ORAL) Take by mouth as needed. Cancelled by 06/29/2024 documented as of this encounter Care Teams Can Handler Relationship Specialty Start Date End Date Ryan Davis MD [address] [place] [address] [place] [address] PCP - General Family Medicine 07/23/19 documented as of this encounter
--- OUTSIDE RECORDS SUMMARY | 2024-10-02 22:00 | XMS_ITS | Encounter Summary ---
Author Organization [place] [address] Care Team Providers Care Cement Finishing Supervisor Name Role Phone Ryan Davis MD Primary Care Provider Reason for Visit * Reason Comments Sore Throat Pt sts that he has b een having a sore throat since Friday , and feeling stuffy . Pt sts that he was really sore this morning with his throat Encounter Details Date Type Department Care Team (Late st Contact Info) Description 06/14/2021 2:40 PM EDT Office Visit [facility] [address] Ryan Davis MD [address] [place] [address] [place] [address] Seasonal allergic rhinitis, unspecified trigger (Primary Dx); Sore throat Social History Tobacco Use Types Packs/Day Years [...] PM EDT documented as of this encounter Last Filed Vital Signs Vital Sign Reading Time Taken Comments Blood Pressure 140/86 06/14/2021 2:41 PM EDT Pulse 78 06/14/2021 2:41 PM EDT Temperature 36.4 ??C (97.6 ??F) 06/14/2021 2:41 PM ED T Respiratory Rate 18 06/14/2021 2:41 PM EDT Oxygen Saturation 97% 06/14/2021 2:41 PM EDT Inhaled Oxygen Concentration - - Weight 114.3 kg (252 lb) 06/14/2021 2:41 PM EDT Height - - Body Mass Index [...] Refills Last Filled Start Date End Date ipratropium (ATROVENT) 21 mcg (0.03 %) Nasl Walls, Non-AerosolIndicat ions:Seasonal allergic rhinitis, unspecified trigger 2 Sprays by Nasal route 3 times daily. 30 mL 2 06/14/2021 11/07/2023 predniSONE (DELTASONE) 20 mg Oral TabletIndications: Seasonal allergic rhinitis, unspecified trigger Take 2 Tabs by mouth daily for 5 days. 10 Tab 06/14/2021 06/19/2021 documented in this encounter Progress Notes * Ryan Davis MD - 06/14/2021 2:40 PM EDT Assessment Diagnoses and all orders for this visit: Seasonal allergic rhinitis, unspecified trigger - predniSONE (DELTASONE) 20 mg Oral Tablet; Take 2 Tabs by mouth daily for 5 days. Dispense: 10 Tab; Refill: 0 - ipratropium (ATROVENT) 21 mcg (0.03 %) Nasl Walls, Non-Aerosol; 2 Sprays by Nasal route 3 times daily. Dispense: 30 mL; Refill: 2 Will treat seasonal allergic rhinitis flare with prednisone and nasal decongestant spray, continue [id number] Flonase and oral antihistamine. [id number] Covid test today was negative Sore throat - POCT NUPUR SARS ANTIGEN [id number] Covid test today was negative Progress Note: Vitals: 06/14/21 1441 BP: 140/86 Pulse: 78 Resp: 18 Temp: 97.6 ??F (36.4 ??C) TempSrc: Temporal SpO2: 97% Weight: 252 lb (114.3 kg) SUBJECTIVE: Chief Complaint Patient presents with ??? Sore Throat Pt sts that he has been having a sore throat since Friday , and feeling stuffy . Pt sts that he was really sore this morning with his throat HPI: He has a 2-day history of a sore throat. He denies any fevers or chills. He feels generally fatigued but does not have any body aches. He has also had thin watery nasal drainage for the last few daysand itchy watery eyes. He took some Benadryl on Friday and folic his symptoms improved somewhat. No cough or shortness of breath. No known exposure anybody with COVID-19. He is not yet received his COVID-19 vaccine is not interested in this today. Review of Systems Constitutional: Negative for chills and fever. HENT: Positive for congestion and sore throat. Negative for sinus pain. Respiratory: Positive for cough. Negative for chest tightness and shortness of breath. Cardiovascular: Negative for chest pain and palpitations. Gastrointestinal: Negative for abdominal pain, nausea and vomiting. Neurological: Negative for dizziness and headaches. OBJECTIVE: Physical Exam Vitals signs reviewed. Constitutional: General: He is not in [...] is normal. No respiratory distress. Breath sounds: No wheezing, rhonchi or rales. Skin: Findings: No rash. Neurological: Mental Status: He is alert. documented [...] Procedure Name Priority Date/Time Associated Diagnosis Comments POCT NUPUR SARS ANTIGEN Routine 06/14/2021 3:08 PM EDT Sore throat documented in this encounter Results * POCT NUPUR SARS ANTIGEN (06/14/2021 3:08 PM EDT) SARS Antigen Negative Negative SEP OFFICE Lot Number SEP OFFICE Expiration Date SEP OFFICE SeriAl # SEP OFFICE Control Line SEP OFFICE 06/14/2021 3:08 PM EDT Ryan Davis MD POINT OF CARE TEST ORDERABLES Final Result [facility] documented in this encounter Visit Diagnoses Diagnosis Seasonal allergic rhinitis, unspecified trigger- Primary Sore throat Acute pharyngitis documented in this encounter Care Teams Cement Finishing Supervisor Relationship Specialty Start Date End Date Ryan Davis MD [address] [facility] [address] [place], [place] [address] PCP - General Family Medicine 07/23/19 documented as of this encounter
--- OUTSIDE RECORDS SUMMARY | 2024-10-02 22:00 | XMS_ITS | Referral Summary ---
Author Organization [facility] Address [address] [place] [address] Phone Care Team Providers Care Acct Exec Name Role Phone Ryan Davis MD Primary Care Provider Encounters Date Type Department Care Team Description 07/16/2024 Refill [facility] [address] [place] [address] Ryan Davis MD Medication Refill from Last 3 Months Allergies No known active allergies Medications loratadine (CLARITIN) 10 mg Oral TabletIndication s:Other allergic rhinitis Take 1 Tab by mouth daily as needed. 30 Tab 6 5 Active Additional Information Patient not taking.Reason: Therapy Completed, Reported on 06/10/2024 amLODIPine (NORVASC) 5 mg Oral TabletIndication s:Essential hypertension Take 1 Tablet by mouth daily. 90 Tablet 3 3 Active tamsulosin (FLOMAX) 0.4 mg Oral Capsule Take 1 Capsule by mouth nightly. 90 Capsule 3 3 Active Additional Information Patient not taking.Reason: Therapy Completed, Reported on 06/10/2024 LEVOthyroxine (SYNTHROID) 25 mcg Oral TabletIndication s:Hypothyroidism (acquired) Take 1 Tablet by mouth daily. 100 Tablet 2 4 Active Active Problems Patient Care Coordination No te Formatting of this note migh t be different from the original. Care gap audit completed by Astrid Jaime RN on 01/13/2024. Care gap audit completed by Astrid Jaime RN on 01/13/2024. Problem Noted Date Diagnosed Date Cataract of both eyes 06/10/2024 Assessment & Plan (06/10/2024 11:18 AM EDT): Patient educated about cataracts. Mild glare symptoms only with rain at night when driving. This is his first eye exam ever today. 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 No indication for surgery at this time, will continue to monitor. May need cataract surgery sooner than average. 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 He is interested in pursuing +2.00 OTC readers for now. Essential hypertension 05/07/2023 Obesity, Class II, BMI 35-39.9 09/06/2020 Overview (09/06/2020): Diet/exercise. Hypothyroidism (acquired) 08/07/2019 Overview (09/06/2020): On synthroid Check labs Get baseline u/s Prediabetes 08/07/2019 Overview (09/06/2020): Lab Results Component Value Date HGBA1C 5.8 (H) 06/05/2020 HGBA1C 5.9 (H) 08/06/2019 Diet control Immunizations Name Administration Dates Next Due Tdap 02/12/2013 02/12/2023 Social History Tobacco Use Types Packs/Day Years [...] on file Sexual Orientation Not on file Last Filed Vital Signs Vital Sign Reading [...] Mass Index 38.31 06/29/2024 9:36 AM EDT Functional Status * Is the person deaf [...] 08/13/2022 8:16 AM EDT Roya Savage RMA Mental Status * Because of a physical, mental or emotional condition, does this person have serious difficulty concentrating, remembering or making decisions? Answer Entry Date Author No 08/13/2022 8:16 AM EDT Roya Savage RMA Plan of Treatment Not on file Goals Goal Patient Goal Type Associated Problems [...] Tobacco Free Lifestyle No Ryan Davis MD Procedures Procedure Name Priority Date/Time Associated Diagnosis Comments COLOGUARD Routine 06/03/2023 11:00 AM EDT Screening for colon cancer from Last 3 Months or Most Recently Relevant to Health Maintenance Results * COLOGUARD (06/03/2023 11:00 AM EDT) COLOGUARD CLINICAL REPORT Negative Negative [facility] Comment: NEGATIVE TEST RESULT. A [...] screened with both Cologuard and colonoscopy. (Zhen Momin al, N Engl J Med 2014;370(14):3262-1091) The normal value (reference range) for this assay is negative. COLOGUARD RE-SCREENING RECOMMENDATION: Periodic colorectal cancer screening is an important part of preventive healthcare for asymptomatic individuals at average risk for colorectal cancer. ??Following a negative Cologuard result, the [place] [employer] Cancer Society and U.S. Multi-Society Task Force screening guidelines recommend a Cologuard re-screening interval of 3 years. References: [place] [employer] Guideline for Colorectal Cancer Screening: https://www.cancer.org/cancer/edymz-khcasl-fmtxdf/wufzqugyt-folvtuszv-tavuqhe/ac s-rec ommendations.html.; Humza DK, Faustino CR, Yvette GloverK, Colorectal Cancer Screening: Recommendations for Physicians and Patients from the U.S. Multi-Society Task Force on Colorectal Cancer Screening , Am J Gastroenterology 2017; 112:1238-8261. TEST DESCRIPTION: Composite algorithmic analysis of stool [...] screened with both Cologuard and colonoscopy. (Zhen Gabrer et al, N Engl J Med 2014;370(14):2854-1216.) Cologuard may produce a false negative or false positive result (no colorectal cancer or precancerous polyp present at colonoscopy follow up). A negative Cologuard test result does not guarantee the absence of CRC or advanced adenoma (pre-cancer). The current Cologuard screening interval is every 3 years. ([place] [employer] Cancer Society and U.S. Multi-Society Task Force). Cologuard performance data in a 10,000 patient pivotal study using colonoscopy as the reference method can be accessed at the following location: www.[employer]/results. Additional description of the Cologuard test process, warnings and precautions can be found at www.Birdbackrd.com. Stool 06/03/2023 11:0 0 AM EDT 06/04/2023 4:49 PM EDT us Ryan Davis MD [facility] Fin al Result [employer], [employer] [address] [place] [address], [facility] [employer] [address] [place] [address] from Last 3 Months or Most Recently Relevant to Health Maintenance Insurance O O Member Subscriber Plan / Payer (Ef fective 2016-Present) Name:AZALIA GE Relation to Subscriber:Spouse Name:Niesha Ge Date of :1974 Address: [address] [place] [address] Payer ID:[id number] (NAIC) Group ID:[id number] Type:Not on file Address: [address] [place] [id number] [facility] [address] Care Teams Acct Exec Relationship Specialty Start Date End Date Ryan Davis MD [address] [place] [address] [place] [address] PCP - General Family Medicine 07/23/19
--- OUTSIDE RECORDS SUMMARY | 2024-10-02 22:00 | XMS_ITS | Clinical Summary ---
Author Organization [facility] Address [address] [place] [address] Phone Care Team Providers Care Animal Nutrition Consultant Name Role Phone Ryan Davis MD Primary Care Provider [phone] Allergies No known active allergies Medications loratadine [...] 06/05/2020 HGBA1C 5.9 (H) 08/06/2019 Diet control Encounters Date Type Department Care Team Description 07/16/2024 Refill [facility] [address] [place] [address] Ryan Davis MD Medication Refill from Last 3 Months Immunizations Name Administration Dates Next Due Tdap 02/12/2013 02/12/2023 Surgical History Surgery Date Site/Laterality Comments MALIGNANT SKIN LESION EXCISION 11/10/2009 L cheek SKIN CANCER EXCISION Medical History Medical History Date Comments Hypothyroidism (acquired) 08/07/2019 Essential hypertension 05/07/2023 Family History Medical History Relation Name Comments Kidney Disease Father possible canc er Colon Cancer Maternal Aunt Cancer Maternal Uncle Diabetes Maternal Uncle Lung Cancer Maternal Uncle Diabetes Mother Diet controlled DM 2 Macular Degen Mother Lung Cancer Paternal Grandfather Cancer Paternal Uncle Glaucoma Neg Hx Prostate Cancer Neg Hx Relation Name Status Comments Father Maternal Aunt Maternal Uncle Mother Alive Paternal Grandfather Paternal Uncle Social History Tobacco Use Types Packs/Day Years [...] on file Sexual Orientation Not on file Obstetrics History Last Filed Vital Signs Vital Sign Reading [...] Mass Index 38.31 06/29/2024 9:36 AM EDT Plan of Treatment Health Maintenance Due Date Last Done Comments Hepatitis B Vaccine (1 of 3 - 19+ 3-dose series) 1987 Colonoscopy 2013 FIT 2013 Sigmoidoscopy 2013 Virtual Colonography 2013 Zoster (1 of 2) 2018 Annual Wellness Exam 07/23/2020 07/23/2019 DTaP/TDaP/Td (2 - Td or Tdap) 02/12/2023 02/12/2013 COVID-19 Vaccine (1 - 2023-2 5 season) 2024 Influenza Vaccine (#1) 2024 4 (Postponed) Cologuard 06/03/2026 06/03/2023, 08/03/2019 Colon Cancer Screening 06/03/2026 Pneumococcal Vaccine 0-64 Aged Out No longer eligible based on patient's age to complete this topic Goals Goal Patient Goal Type Associated Problems [...] Results * COLOGUARD (06/03/2023 11:00 AM EDT) Pathologist [facility] COLOGUARD CLINICAL REPORT Negative Negative [facility] Comment: NEGATIVE TEST RESULT. A negative [...] (Zhen Momin al, N Engl J Med 2014;370(14):2828-9051) The normal value (reference range) for this assay is negative. COLOGUARD RE-SCREENING RECOMMENDATION: Periodic colorectal cancer screening is an important part of preventive healthcare for asymptomatic individuals at average risk for colorectal cancer. ??Following a negative Cologuard result, the [place] Cancer Society and U.S. Multi-Society Task Force screening guidelines recommend a Cologuard re-screening interval of 3 years. References: [place] [employer] Guideline for Colorectal Cancer Screening: https://www.cancer.org/cancer/kybyy-wnozoc-thvklr/fveqwlcac-jrdcsywlj-pozylex/ac s-rec ommendations.html.; Humza PEREZ, Faustino FRANKLIN, Yvette CERVANTES, Colorectal Cancer Screening: Recommendations for Physicians and Patients from the U.S. Multi-Society Task Force on Colorectal Cancer Screening , Am J Gastroenterology 2017; 112:6023-3973. TEST DESCRIPTION: Composite algorithmic analysis of stool [...] Golden. et al, N Engl J Med 2014;370(14):5510-6925.) Cologuard may produce a false negative or false positive result (no colorectal cancer or precancerous polyp present at colonoscopy follow up). A negative Cologuard test result does not guarantee the absence of CRC or advanced adenoma (pre-cancer). The current Cologuard screening interval is every 3 years. ([place] Cancer Society and U.S. Multi-Society Task Force). Cologuard performance data in a 10,000 patient pivotal study using colonoscopy as the reference method can be accessed at the following location: www.[employer]/results. Additional description of the Cologuard test process, warnings and precautions can be found at www.cologuard.com. Stool 06/03/2023 11:0 0 AM EDT 06/04/2023 4:49 PM EDT us Ryan Davis MD [facility] [facility] - ORDERABLES Fin al Result [employer], [address] [employer] [address] [place] [address] from Last 3 Months or Most Recently Relevant to Health Maintenance Insurance O O [facility] [address] [place] [id number] [facility] [address] [place] [address] Care Teams Animal Nutrition Consultant Relationship Specialty Start Date End Date Ryan Davis MD [address] [place] [address] [place] [address] PCP - General Family Medicine 07/23/19
--- OUTSIDE RECORDS SUMMARY | 2024-10-02 22:00 | XMS_ITS | Encounter Summary ---
Author Organization [facility] [place] [address] Care Team Providers Care Surface Miner Name Role Phone Ryan Davis MD Primary Care Provider [phone] Reason for Visit * Reason Onset Date Comments Symptom Call 05/20/2023 Scratchy throat Encounter Details Date Type Department Care Team (Late st Contact Info) Description 05/20/2023 Telephone SEP Karin [address] [place] [address] Ryan Davis MD [address] [place] [address] [place] [address] Symptom Call (Scratchy throat ) Social History Tobacco Use Types Packs/Day [...] encounter Miscellaneous Notes * Telephone Encounter - Rossi Armenta RMA - 05/20/2023 4:19 PM EDT Appt made * Telephone Encounter - Debra Gaona - 05/20/2023 4:15 PM EDT Symptoms Call Who is reporting the symptoms: Patient What symptom(s) is the patient experiencing: scratchy throat, slight cough How long have symptoms been present: 5 day(s) ago Has the patient been seen for this: No Has the patient tried anything to relieve the symptoms and did it help: Yes Nyquil/Dayquil Desired Outcome: Rx, Antibiotic Pharmacy & Location:[facility] [address] [place] [address] [address] [facility] [phone] [[id number]] documented in this encounter Plan of Treatment [...] on filedocumented in this encounter Care Teams Surface Miner Relationship Specialty Start Date End Date Ryan Davis MD [address] [place] [address] [place] [id number] PCP - General Family Medicine 07/23/19 documented as of this encounter
--- OUTSIDE RECORDS SUMMARY | 2024-10-02 22:01 | XMS_ITS | Encounter Summary ---
Author Organization [place] [address] Care Team Providers Care Commercial Collections Driver Name Role Phone Ryan Davis MD Primary Care Provider [phone] Reason for Referral * - Closed Specialty Diagnoses / Procedures Referred By Contac t Referred To Contact Diagnoses Skin cancer of arm, left Cancer of skin of left ear Ryan Davis MD [address] [place] [address] [place] [address] Phone: tel: fax: Bassam Stacy MD [address] [place] [address] [place] [phone] Phone: tel: fax: Referral ID Status Reason Start Date Expiration Date Visits Re quested Visits Authorized [id number] Closed 07/23/2019 07/22/2020 1 1 * Genetic Lab Test (Routine) - Closed Specialty Diagnoses / Procedures Referred By Contac t Referred To Contact In-Home Lab Specimen Collection Diagnoses Special screening for malignant neoplasms, colon Screening for malignant neoplasm of the rectum Procedures COLOGRyan Bull MD [address] [place] [address] [place] [address] Phone: tel: fax: Referral ID Status Reason Start Date Expiration Date Visits Re quested Visits Authorized [id number] Closed 07/23/2019 07/22/2020 1 1 Reason for Visit * Reason Comments Establish Care Encounter Details Date Type Department Care Team (Late st Contact Info) Description 07/23/2019 1:00 PM EDT Office Visit [facility] [address] [place] [address] [place] [address] Ryan Davis MD [address] [place] [address] [place] [address] Annual physical exam (Primary Dx); Special screening for malignant neoplasms, colon; Screening for malignant neoplasm of the rectum; Skin cancer of arm, left; Cancer of skin of left ear; Impacted cerumen of right ear Social History Tobacco Use Types Packs/Day Years [...] Sign Reading Time Taken Comments Blood Pressure 126/84 07/23/2019 1:06 PM EDT Pulse 87 07/23/2019 1:06 PM EDT Temperature 37 ??C (98.6 ??F) 07/23/2019 1:06 PM EDT Respiratory Rate 22 07/23/2019 1:06 PM EDT Oxygen Saturation 97% 07/23/2019 1:06 PM EDT Inhaled Oxygen Concentration - - Weight 119.3 kg (263 lb) 07/23/2019 1:06 PM EDT Height 177.8 cm (5' 10 ) 07/23/2019 1:06 PM EDT Body Mass Index 37.74 07/23/2019 1:06 PM EDT documented in this encounter Functional Status * Is the person deaf or does he/she have serious difficulty hearing? Answer Date of Assessment Author No 07/23/2019 1:05 PM EDT Vince Ray MA * Is the person blind or does he/she have serious difficulty seeing even when wearing glasses? Answer Date of Assessment Author No 07/23/2019 1:05 PM EDT Vince Ray MA * Does this person have serious difficulty walking or climbing stairs? Answer Date of Assessment Author No 07/23/2019 1:05 PM EDT Vince Ray MA * Does this person have difficulty dressing or bathing? Answer Date of Assessment Author No 07/23/2019 1:05 PM EDT Vince Ray MA * Because of a physical, mental or emotional condition, does this person have difficulty doing errands alone such as visiting a doctor's office or shopping? Answer Date of Assessment Author No 07/23/2019 1:05 PM EDT Vince Ray MA documented as of this encounter Mental Status * Because of a physical, mental or emotional condition, does this person have serious difficulty concentrating, remembering or making decisions? Answer Entry Date Author No 07/23/2019 1:05 PM EDT Vince Ray MA documented in this encounter Progress Notes * Ryan Davis MD - 07/23/2019 1:00 PM EDT Assessment Diagnoses and all orders for this visit: Annual physical exam - TSH REFLEX; Future - LIPID PANEL REFLEX; Future - CBC WITH DIFF; Future - HEMOGLOBIN A1C; Future - COMPREHENSIVE METABOLIC PANEL; Future We will follow-up blood work as ordered above. Due for colon cancer screening this is ordered today. Special screening for malignant neoplasms, colon - COLOGUARD; Future Colon cancer screening ordered today. Discussed various options for colon cancer screening and patient agreed to Cologuard testing with shared decision-making. Screening for malignant neoplasm of the rectum - COLOGUARD; Future Skin cancer of arm, left - AMB REFERRAL TO DERMATOLOGY He has a concerning area on both his left anterior shoulder and behind his left ear. He has a history of prior skin cancers in a high risk area on his nose. The area behind his ear is concerning for a possible basal cell cancer in the area on his shoulder could be a basal cell versus squamous cell carcinoma. No weight loss or lymphadenopathy noted. Given the high risk area behind his ear and the h istory of prior skin cancers will refer to dermatology for removal and pathology. Cancer of skin of left ear - AMB REFERRAL TO DERMATOLOGY Treatment plan as above, reviewed importance of sunscreen to be used every day especially in high risk areas of the face years neck and hands Impacted cerumen of right ear - ND REMOVAL IMPACTED CERUMEN IRRIGATION/LVG UNILAT Right TM completely obstructed with cerumen. This was removed with lavage today patient tolerated procedure well. TM was well visualized after removal. Progress Note: Vitals: 07/23/19 1306 BP: 126/84 Pulse: 87 Resp: 22 Temp: 98.6 ??F (37 ??C) TempSrc: Temporal SpO2: 97% Weight: 263 lb (119.3 kg) Height: 5' 10 (1.778 m) SUBJECTIVE: Chief Complaint Patient presents with ??? Establish Care HPI: Well Adult: Subjective Mr. GE is a 49 y.o. male here for an annual wellness visit and to establish care His main concern today are some skin issues. He noticed a bump behind his left ear that has been present for the past several months. The area is frequently irritated when he puts on his work glassesand occasionally bleeds. It has not resolved over this time. He has a history of a prior skin cancer on his nose. He is also concerned about a spot on his left shoulder that is red and irritated. It frequently is irritated with his shirt. The area has not changed in size. Is also occasionally bleeds. Is been present for greater than 2 years. He does not currently smoke drink alcohol regularly and denies any drug use. No history of any chronic medical issues, no current medications Diet: Diet followed. Tries to avoid fast food Exercise: No specific exercise regiment. Physically active at work Activities of Daily Living: Functional Level: Self-care ADL Limitations: none Social Interaction Screen: Do you have concerns about issues that may impact social interaction such as developmental or behavioral/mental health conditions? no Health Maintenance Due Topic Date Due ??? Colon Cancer Screening: Colonoscopy 2018 ??? Influenza Vaccine (1) 07/11/2019 Health Maintenance Topic Date Due ??? Colon Cancer Screening: Colonoscopy 2018 ??? Influenza Vaccine (1) 07/11/2019 ??? Annual Wellness Exam 07/23/2020 There is no immunization history on file for this patient. There is no problem list on file for this patient. History reviewed. No pertinent past medical history. Past Surgical History: Procedure Laterality Date ??? SKIN CANCER EXCISION No Known Allergies No current outpatient medications on file prior to visit. No current facility-administered medications on file prior to visit. Social History Socioeconomic History ??? Marital status: Spouse name: None ??? Number of children: None ??? Years of education: None ??? Highest education level: None Tobacco Use ??? Smoking status: Former Smoker Packs/day: 0.00 ??? Smokeless tobacco: Never Used Substance and Sexual Activity ??? Alcohol use: Yes ??? Drug use: Never ??? Sexual activity: Yes Partners: Female Family History Problem Relation Age of Onset ??? Diabetes Mother ??? Cancer Maternal Aunt ??? Cancer Maternal Uncle ??? Lung Cancer Maternal Uncle ??? Cancer Paternal Uncle ??? Cancer Paternal Grandfather No exam data present No results found for this visit on 07/23/19. Patient Care Team: Ryan Davis MD as PCP - General (Family Medicine) No results found for: WBC, HGB, HCT, PLT, CHOLESTEROL, TRIG, HDL, LDLDIRECT, LDLCALC, ALT, AST, NA,K, CL, CREATININE, BUN, CO2, TSH, INR, GLUCOSE, GLU, HGBA1C, MICROALBUR, TSHREFLEX === Other chronic disease management or a new acute condition was addressed today as a separate identifiable service today and the HPI of those conditions may be noted in the body of this note just below this statement with associated pertinent ROS/EXAM/A&P incorporated into the documentation within the appropriate sections of the note. Separate service billing not applicable if the patient is in for Initial Medicare wellness Assessment or as a new patient to the practice. Some commercial insurers may not allow wellness services and acute care/chronic care service billing on the same dateof service. === Additional issues addressed today: Review of Systems Constitutional: Negative for fatigue and fever. HENT: Negative for congestion and sore throat. Respiratory: Negative for chest tightness and shortness of breath. Cardiovascular: Negative for chest pain and palpitations. Gastrointestinal: Negative for abdominal pain, nausea and vomiting. Neurological: Negative for dizziness and headaches. OBJECTIVE: Physical Exam Constitutional: General: He is not in acute distress. Appearance: He is well-developed. He is not diaphoretic. HENT: Head: Normocephalic and atraumatic. Right Ear: There is impacted cerumen. Left Ear: There is no impacted cerumen. Eyes: Pupils: Pupils are equal, round, and reactive to light. Cardiovascular: Rate and Rhythm: Normal rate and regular rhythm. Pulmonary: Effort: Pulmonary effort is normal. Breath sounds: Normal breath sounds. No wheezing. Abdominal: Tenderness: There is no tenderness. There is no guarding or rebound. Musculoskeletal: Right lower leg: No edema. Left lower leg: No edema. Skin: Findings: No rash. Comments: Possible skin cancer behind left ear. Area is approximately 4 to 5 mm in diameter, pearlypapule present with some blood vessel visible. Lesion on anterior of left shoulder approximately 2 to 2.5 cm in diameter. Area is ulcerated and erythematous Neurological: Mental Status: He is alert and oriented to person, place, and time. Psychiatric: Behavior: Behavior normal. Thought Content: Thought content normal. Judgement: Judgment normal. Cerumen impaction Subjective: AZALIA Clarke WORKMAN is a 49 y.o. male who presents for evaluation of a plugged ear. He noticed the symptoms in the right ear, 3 weeks ago. AZALIA admits to ear pain. Patients past medical, family and social histories were reviewed and updated. There were no changesexcept as noted. Review of Systems Pertinent items are noted in HPI. Objective: BP 126/84 Pulse 87 Temp 98.6 ??F (37 ??C) (Temporal) Resp 22 Ht 5' 10 (1.778 m) Wt 263 lb (119.3 kg) SpO2 97% BMI 37.74 kg/m?? General: alert, appears stated age and cooperative Right Ear: Obstructed with cerumen Left Ear: normal appearance and Normal TM After removal: TM well visualized Assessment: Cerumen Impaction, without otitis externa. Plan: Cerumen removed by flushing. Care instructions given. Home treatment: none. Follow up as needed. documented in this encounter Plan of Treatment Scheduled Orders Name Type Priority Associated Diagnoses Orde r Schedule ND REMOVAL IMPACTED CERUMEN IRRIGATION/LVG UNILAT ND Charge Routine Impacted cerumen of right ear Ordered: 07/23/2019 Scheduled Referrals Name Type Priority Associated Diagnoses Order Schedule AMB REFERRAL TO DERMATOLOGY Outpatient Referral Routine Skin Cancer Of Arm, Left Cancer Of Skin Of Left Ear Ordered: 07/23/2019 documented as of this encounter Goals Goal [...] Priority Date/Time Associated Diagnosis Comments COLOGUARD Routine 08/03/2019 9:00 AM EDT Special screening for malignant neoplasms, colon Screening for malignant neoplasm of the rectum documented in this encounter Results * (ABNORMAL) COMPREHENSIVE METABOLIC PANEL (08/06/2019 8:00 AM EDT) Sodium 141 136 - 145 mmol/L 08/06/2019 6:45 PM EDT [facility] Potassium 4.8 3.5 - 5.0 mmol/L 08/06/2019 6:45 PM EDT [facility] Chloride 101 98 - 107 mmol/L 08/06/2019 6:45 PM EDT [facility] Total CO2 29 22 - 29 mmol/L 08/06/2019 6:45 PM EDT [facility] Anion Gap 11 7 - 16 mmol/L 08/06/2019 6:45 PM EDT [facility] Calcium 9.6 8.6 - 10.4 mg/dL 08/06/2019 6:45 PM EDT [facility] Glucose Lvl 111(H) 74 - 100 mg/dL 08/06/2019 6:45 PM EDT [facility] BUN 15 6 - 20 mg/dL 08/06/2019 6:45 PM EDT [facility] Creatinine 1.09 0.67 - 1.30 mg/dL 08/06/2019 6:45 PM EDT [facility] Albumin 4.3 3.5 - 5.2 gm/dL 08/06/2019 6:45 PM EDT [facility] Total Protein 7.7 6.4 - 8.3 gm/dL 08/06/2019 6:45 PM EDT [facility] Bili Total 0.5 0.1 - 1.4 mg/dL 08/06/2019 6:45 PM EDT [facility] ALT 52(H) <=41 IU/L 08/06/2019 6:45 PM EDT [facility] AST 29 <=40 IU/L 08/06/2019 6:45 PM EDT [facility] Alk Phos 49 40 - 129 IU/L 08/06/2019 6:45 PM EDT [facility] GFR Afr Am 90 >=60 mL/min/1.7 3 m2 08/06/2019 6:45 PM EDT [facility] GFR Non Afr Am 78 >=60 mL/min/1.7 3 m2 08/06/2019 6:45 PM EDT [facility] Comment: This estimated GFR was calculated using CKD-EPI equation which is modified based on ethnicity for Non Americans and Americans. Both results are reported since it is not always possible to determine the patient's ethnicity. This equation should only be used for individuals 18 and older. It has not been validated for use with the elderly (>70 years), women, or in some racial or ethnic subgroups, such as Hispanics. The equation will be less accurate in people with differences in nutritional status or muscle mass. Blood VENOUS BLOOD / Unknown Venipuncture / Unknown 08/06/2019 8:00 AM EDT 08/06/2019 8:00 AM EDT us Ryan Davis MD CHEMISTRY ORDERABLES Final Res ult [facility] , [address] [place] [id number] [place] [id number] * (ABNORMAL) HEMOGLOBIN A1C (08/06/2019 8:00 AM EDT) Hgb A1C 5.9(H) 4.2 - 5.6 % 08/06/2019 4:20 PM EDT [facility], [facility] Est. Avg Glucose 123 mg/dL 08/06/2019 4:20 PM EDT [facility] Blood VENOUS BLOOD / Unknown Venipuncture / Unknown 08/06/2019 8:00 AM EDT 08/06/2019 8:00 AM EDT Narrative [facility] - 08/06/2019 4:20 PM EDT REFERENCE RANGE: Normal: 4.0-5.6% Pre-diabetes: 5.7-6.4% Provisional diagnosis of diabetes: >6.4% Hgb F>10% and anything which shortens red cell survival, such as hemolytic anemia, or unstable hemoglobin variants such as HbSS, HbSC, or HbCC, will lower the HbA1c value associated with a given level of glycemic control. ? us Ryan Davis MD CHEMISTRY ORDERABLES Final Res ult [facility] [address] [facility] , [place] [address] * (ABNORMAL) CBC WITH DIFF (08/06/2019 8:00 AM EDT) WBC 6.8 3.7 - 10.3 x10(3)/mcL 08/06/2019 3:36 PM EDT [facility] RBC 5.69 4.60 - 6.10 x10(6)/mcL 08/06/2019 3:36 PM EDT [facility] Hgb 16.2 13.7 - 17.5 g/dL 08/06/2019 3:36 PM EDT [facility] Hct 49.7 40.0 - 51.0 % 08/06/2019 3:36 PM EDT [facility] MCV 87.3 80.0 - 100.0 fL 08/06/2019 3:36 PM EDT [facility] MCH 28.5 26.0 - 34.0 pg 08/06/2019 3:36 PM EDT [facility] MCHC 32.6 30.7 - 35.5 g/dL 08/06/2019 3:36 PM EDT [facility] RDW 13.2 <=14.9 % 08/06/2019 3:36 PM EDT [facility] Platelet 186 155 - 369 x10(3)/mcL 08/06/2019 3:36 PM EDT [facility] MPV 11.2 8.8 - 12.5 fL 08/06/2019 3:36 PM EDT [facility] Neut Percent 45.9 % 08/06/2019 3:36 PM EDT [facility] Comment:Neutrophils equals s egs plus bands Imm Gran% 0.4 % 08/06/2019 3:36 PM EDT [facility] [place], [facility] Comment:Automated count of m etamyelocytes, myelocytes and promyelocytes. Lymph Percent 34.0 % 08/06/2019 3:36 PM EDT [facility], [facility] [place] Percent 10.4 % 08/06/2019 3:36 PM EDT [facility] Eos Percent 8.3 % 08/06/2019 3:36 PM EDT [facility] [place], [facility] Baso Percent 1.0 % 08/06/2019 3:36 PM EDT [facility] [place], [facility] Neut # 3.1 1.6 - 6.1 x10(3)/[facility] 08/06/2019 3:36 PM EDT [facility] [place], [facility] Comment:Neutrophils equals s egs plus bands IMMGRAN# 0.0 0.0 - 0.1 x10(3)/[facility] 08/06/2019 3:36 PM EDT [facility] [place], [facility] Comment:Automated count of m etamyelocytes, myelocytes and promyelocytes. An absolute IG <0.1 is reported as 0.0. Lymph # 2.3 1.2 - 3.9 x10(3)/[facility] 08/06/2019 3:36 PM EDT [facility], [facility] [place] # 0.7 0.3 - 0.9 x10(3)/[facility] 08/06/2019 3:36 PM EDT [facility] [place], [facility] Eos# 0.6(H) 0.0 - 0.5 x10(3)/[facility] 08/06/2019 3:36 PM EDT [facility] [place], [facility] Baso # 0.1 0.0 - 0.1 x10(3)/[facility] 08/06/2019 3:36 PM EDT [facility] [place], [facility] Blood VENOUS BLOOD / Unknown Venipuncture / Unknown 08/06/2019 8:00 AM EDT 08/06/2019 8:00 AM EDT Ryan Davis MD HEMATOLOGY ORDERABLES Final Re sult Performing Organization Address City/[facility]/ZIP Co de Phone Number [facility] [address] [facility] , [place] [address] * (ABNORMAL) LIPID PANEL REFLEX (08/06/2019 8:00 AM EDT) Cholesterol 187 <=200 mg/dL 08/06/2019 6:46 PM EDT [facility] Comment: < 200 ?Desirable 200 - 239 ? Borderline High >= 240 ?High Triglyceride 141 <=150 mg/dL 08/06/2019 6:46 PM EDT [facility] Comment: < 150 ? Normal 150 - 199 ?Borderline High 200 - 499 ?High ??>= 500 ? Very High HDL 43 >=40 mg/dL 08/06/2019 6:46 PM EDT [facility] Comment: ??> 60 ?Optimal 40 - 60 ?Acceptable ?? < 40 ?Low LDL Calculated 116(H) <=100 mg/dL 08/06/2019 6:46 PM EDT [facility] Non-HDL-C Calculated 144(H) <=129 mg/dL 08/06/2019 6:46 PM EDT [facility] Comment: <130 ?Desirable 130-159 Above Desirable 160-189 Borderline High 190-219 High >= 220 ??Very High Fasting Specimen? Yes None 019 6:46 PM EDT [facility] Blood VENOUS BLOOD / Unknown Venipuncture / Unknown 08/06/2019 8:00 AM EDT 08/06/2019 8:00 AM EDT us Ryan Davis MD CHEMISTRY ORDERABLES Final Res ult [facility] [address] [facility] , [place] [address] * (ABNORMAL) TSH REFLEX (08/06/2019 8:00 AM EDT) TSH Reflex 5.620(H) 0.270 - 4.200 mcIU/mL 08/06/2019 8:21 PM EDT [facility] Blood VENOUS BLOOD / Unknown Venipuncture / Unknown 08/06/2019 8:00 AM EDT 08/06/2019 8:00 AM EDT Narrative [facility] - 08/06/2019 8:21 PM EDT Ingestion of smooth doses of biotin (>5 mg/day) taken within 8 hours of drawing blood sample can interfere with this immunoassay test. us Ryan Davis MD CHEMISTRY ORDERABLES Final Res ult [facility] [address] [facility] , [place] [address] * COLOGUARD (08/03/2019 9:00 AM EDT) Pathologist [facility] COLOGUARD CLINICAL REPORT Negative Not Applicable [facility] Comment: A negative result indicates a low likelihood that a colorectal cancer (CRC) or an advanced adenoma (adenomatous polyps with more advanced pre-malignant features) is present. The chance that a person with a negative Cologuard test has a colorectal cancer is less than 1 in 1500 (negative predictive value >99.9%) or has an advanced adenoma is less than 5.3% (negative predictive value 94.7%). These data are based on a prospective cross-sectional screening study of 10,000 individuals at average risk for colorectal cancer who were screened with both Cologuard and colonoscopy. (Zhen Momin al, N Engl J Med 2014;370(14):6282-3807) COLOGUARD RE-SCREENING RECOMMENDATION: Periodic routine colorectal cancer screening is an important part of preventive healthcare for asymptomatic persons at average risk for colorectal cancer. Following a negative Cologuard result, the [place] [employer] and U.S. Multi-Society Task Force screening guidelines recommend a Cologuard re-screening interval of 3 years. References: [place] [employer] (ACS). Colorectal cancer prevention and early detection. [place]: [place] [employer]; [updated 2015Mar 03]. https://www.cancer.org/cancer/hvxxd-hrksrc-sxiqfn/yzxrzybql-rpxiigftn-dmlacig/ac s-rec ommendations.html. Accessed July 10, 2018; Humza DK, Faustino CR, Yvette GloverK, Colorectal Cancer Screening: Recommendations for Physicians and Patients from the U.S. Multi-Society Task Force on Colorectal Cancer Screening, Am J Gastroenterology 2017; 112:5955-8820. Test Type: Composite algorithmic analysis of stool DNA-biomarkers with hemoglobin immunoassay. ??Quantitative values of individual biomarkers are not reportable and are not associated with individual biomarker result reference ranges. Precautions and Limitations: Cologuard is intended for colorectal cancer screening of adults of either sex, 50 years or older, who are at typical average-risk for colorectal cancer. A negative Cologuard test result does not guarantee the absence of colorectal cancer or advanced adenoma (pre-cancer). Patients with a negative Cologuard test result should be advised to continue participating in a colorectal cancer screening program. Cologuard may produce a positive result, even though a colonoscopy may not find colorectal cancer or precancerous polyps. The performance of Cologuard has been established in a cross sectional study (i.e., single point in time). Performance has not been evaluated in adults who have been previously tested with Cologuard or in patients less than 50 years of age. Cologuard has been approved for use by the U.S. FDA. Cologuard performance data in a 10,000 patient pivotal study using colonoscopy as the reference method can be accessed at the following location: www.[employer]/results. Additional description of the Cologuard test process, warnings and precautions can be found at www.cologuardtest.com. Rx Only. Stool specimen (specimen) 08/03/2019 9:00 AM EDT 08/04/2019 2:14 PM EDT us Ryan Davis MD [employer] - ORDERABLES Fin al Result [facility], [facility] [place] [address], [facility] [employer] [address] [place] [address] documented in this encounter Visit Diagnoses Diagnosis Annual physical exam- Primary Routine general medical examination at a health care facility Special screening for malignant neoplasms, colon Screening for malignant neoplasm of the rectum Skin cancer of arm, left Cancer of skin of left ear Impacted cerumen of right ear Impacted cerumen documented in this encounter Care Teams Commercial Collections Driver Relationship Specialty Start Date End Date Ryan Davis MD [address] [facility] [address] [place], [place] [address] PCP - General Family Medicine 07/23/19 documented as of this encounter
--- OUTSIDE RECORDS SUMMARY | 2024-10-02 22:01 | XMS_ITS | Encounter Summary ---
Author Organization [place] [address] Care Team Providers Care Sql Server Architect Name Role Phone Ryan Davis MD Primary Care Provider [phone] Reason for Visit * Reason Comments C[facility] Encounter Details Date Type Department Care Team (Late st Contact Info) Description 11/26/2019 8:00 AM EST Office Visit [place]ESUS [place] [address] [place] [address] Ryan Davis MD [address] [place] [address] [place] [address] Chronic cough (Primary Dx); Gastroesophageal reflux disease, esophagitis presence not specified; Hypothyroidism (acquired); Elevated BP without diagnosis of hypertension Social History Tobacco Use Types Packs/Day Years [...] Sign Reading Time Taken Comments Blood Pressure 142/100 11/26/2019 8:04 AM EST Pulse 85 11/26/2019 8:04 AM EST Temperature 37 ??C (98.6 ??F) 11/26/2019 8:04 AM EST Respiratory Rate 18 11/26/2019 8:04 AM EST Oxygen Saturation 98% 11/26/2019 8:04 AM EST Inhaled Oxygen Concentration - - Weight 118.4 kg (261 lb) 11/26/2019 8:04 AM EST Height 177.8 cm (5' 10 ) 11/26/2019 8:04 AM EST Body Mass Index 37.45 11/26/2019 8:04 AM EST documented in this encounter Functional [...] Refills Last Filled Start Date End Date pantoprazole (PROTONIX) 40 mg Oral Tablet, Delayed Release (E.C.)Indications:C hronic cough,Gastroesophag eal reflux disease, esophagitis presence not specified Take 1 Tab by mouth daily. 30 Tab 2 11/26/2019 06/05/2020 LEVOthyroxine (SYNTHROID) 25 mcg Oral TabletIndications:H ypothyroidism (acquired) Take 1 Tab by mouth daily. 30 Tab 2 11/26/2019 03/03/2020 documented in this encounter Progress Notes * Ryan Davis MD - 11/26/2019 8:00 AM EST Assessment Diagnoses and all orders for this visit: Chronic cough - pantoprazole (PROTONIX) 40 mg Oral Tablet, Delayed Release (E.C.); Take 1 Tab by mouth daily. Dispense: 30 Tab; Refill: 2 Differential for chronic cough includes postnasal drip, GERD, post viral cough, among other things.Based on his symptoms and history we will treat for suspected underlying GERD and follow-up at nextvisit for his response to this therapy. If his chronic cough persists will consider other potentialdiagnosis as the source of his cough. Gastroesophageal reflux disease, esophagitis presence not specified - pantoprazole (PROTONIX) 40 mg Oral Tablet, Delayed Release (E.C.); Take 1 Tab by mouth daily. Dispense: 30 Tab; Refill: 2 We will treat suspected underlying GERD with once daily PPI as per above. Hypothyroidism (acquired) - THYROID STIMULATING HORMONE; Future - T4, FREE (THYROXINE); Future - T3 FREE; Future - LEVOthyroxine (SYNTHROID) 25 mcg Oral Tablet; Take 1 Tab by mouth daily. Dispense: 30 Tab; Refill: 2 Restart previous Synthroid and follow-up for thyroid level recheck in 6 weeks. Elevated BP without diagnosis of hypertension Elevated blood pressure today, no prior history of hypertension. Given information on DASH diet andexercise to work on to help bring down his blood pressure. If his blood pressure still elevated at the follow-up visit we will consider starting medications at that time. Progress Note: Vitals: 11/26/19 0804 BP: (!) 142/100 Pulse: 85 Resp: 18 Temp: 98.6 ??F (37 ??C) TempSrc: Temporal SpO2: 98% Weight: 261 lb (118.4 kg) Height: 5' 10 (1.778 m) SUBJECTIVE: Chief Complaint Patient presents with ??? Cough dry cough since before Kori HPI: He reports a one-month history of a dry cough and a intermittent scratchy throat. He states the scratchy throat is worse in the morning and at night. He has a dry nonproductive cough periodically throughout the day. His throat feels ill irritated and causes the sensation in need to cough. He deniesany fevers or chills. No nasal congestion or sinus issues. He denies any history of allergic rhinitis. He does not currently take any antihistamines or nasal sprays. He denies any hemoptysis. Elevated blood pressure: He denies any previous history of hypertension. His blood pressure is elevated today. He does not currently follow a low-salt diet or any other specific diet. He is physically active atwork but does not do any additional exercise programs at home. Thyroid: He was previously diagnosed with hypothyroidism and started on 25 mg of Synthroid daily. After completing the first month he did not refill the medication. He has been off of the medication for approximately 2 months. He requests a refill today. He does state that when he was taking the medication he had a mild amount of weight loss approximately 3 to 5 pounds which he promptly regained when he stopped taking the medicine. He also reports improved energy and reduce issues with fatigue when he was on the medication. Review of Systems Constitutional: Negative for fatigue and fever. HENT: Negative for congestion. Respiratory: Positive for cough. Cardiovascular: Negative for chest pain. Gastrointestinal: Negative for abdominal pain. Neurological: Negative for headaches. OBJECTIVE: Physical Exam Vitals signs reviewed. Constitutional: General: He is not in acute distress. Appearance: He is well-developed. He is not diaphoretic. HENT: Head: Normocephalic and atraumatic. Nose: No congestion or rhinorrhea. Mouth/Throat: Pharynx: No oropharyngeal exudate or posterior oropharyngeal erythema. Eyes: Pupils: Pupils are equal, round, and reactive to light. Cardiovascular: Rate and Rhythm: Normal rate and regular rhythm. Pulmonary: Effort: Pulmonary effort is normal. Breath sounds: Normal breath sounds. No wheezing, rhonchi or rales. Abdominal: Palpations: Abdomen is soft. Tenderness: There is no abdominal tenderness. There is no guarding or rebound. Skin: Capillary Refill: Capillary refill takes less than 2 seconds. Findings: No rash. Neurological: Mental Status: He is alert and oriented to person, place, and time. Psychiatric: Behavior: Behavior normal. Thought Content: Thought content normal. Judgment: Judgment normal. documented in this encounter Miscellaneous Notes * Patient Instructions - Ryan Davis MD - 11/26/2019 8:00 AM EST Images from the original note were not included. Limit sodium to 2500mg a day. Eat 5 - 6 servings of fruit per day. Locally grown fresh fruit has the most antioxidants. If they are not available, frozen fruit is the next best. Eat more fresh vegetables, olive oil, and a handful of nuts (unsalted) every day. Make all your grains (breads, pasta, rice) 'whole grain' only to increase natural fiber in your diet Fish has healthy omega-3 oils. Eating fish twice a week has been shown to improve health. If you take fish oil, take at least 1,000mg EPA + DHA a day (you must look at the food label on the back of the bottle and add up these omega-3s to know how much of this beneficial nutrient is contained in theproduct). There is more evidence that eating fish improves health more than taking fish oi supplements. Eating eggs has benefit if you eat the high omega-3 eggs. In these eggs, the yolks are good for you. At [facility], go to the health food section and get the 660mg omega-3 eggs. The chickens are fed fish, and the benefits of the fish are imparted into the egg yolk. If you have diabetes, you should probably avoid eggs. If your cholesterol is high, limit yourself to only 1 egg a day. Current research shows that a pesco-vegetarian diet (eating a plant based diet with fish) is the best for improving longevity and reducing cardiovascular disease. Limit saturated fats, sugar and red meat. Avoid trans-fats and processed meat (e.g. Salami). Avoid fried foods, potato dishes and white (or enriched, processed) flour. Limit sugar. Research shows that regular consumption of sugary drinks increases the risk of early by 44%! Foods to avoid! Trans-fats - increases risk of heart disease, stroke, and development of diabetes Processed meats (lunch meat, goetta, sausage, pepperoni, etc..) - increases risk of cancers High fructose corn syrup (fructose, corn syrup) - increases risk of high blood pressure, obesity and diabetes and does not stimulate leptin which induces satiety More information on healthful diets and recipes is available at www.choosemyplate.gov, or ww.mypyramid.gov Enhance your foods with spices. They are full of nutritional benefit and antioxidants. You can use the following charts to learn how to cook with spices These recommendations include the Mediterranean diet (which reduces cardiovascular mortality) and the DASH diet (which reduces the risk of coronary heart disease). Research done in 2019 shows soft drinks increase risk of early (both sugar and artificially sweetened). Avoid these as much as possible. New research shows that fasting helps lower risk of breast cancer, diabetes, inflammation, cardiovascular disease, Alzheimers, and increases longevity. We don't have a lot of information on how much to fast, but even overnight fasts of 13 hours makes a difference. Consider skipping snacks after dinner. Exercise 1 hour a day at least 5 days a week. If you do not currently exercise, start slow by maybewalking 5 minutes out, 5 minutes back. Increase the amount of time you exercise every day by 2 - 5 minutes, as tolerated. Your goal should be to get to 1/2 - 1 hour a day. Exercise will help you control metabolic diseases, maintain independence, and reduce your risk for dementia. Watch the BetaUsersNow[employer]comube video called, '23 1/2 hours'. Weight training and resistance exercises have been shown to help preserve muscle mass and strength.It is recommended that these be done twice a week. Balance is important to prevent falls. An easy way to improve this is to stand on one leg at a timewhile you brush your teeth. Gently stretch your joints to maintain flexibilty. And maintain good posture to protect your spine. documented in this encounter Plan of Treatment [...] Davis MD documented as of this encounter Results * T3 FREE (01/21/2020 3:00 PM EDT) T3 Free 3.35 2.00 - 4.40 pg/mL 01/21/2020 8:07 PM EDT [facility] [employer], [facility] Blood VENOUS BLOOD / Unknown Venipuncture / Unknown 01/21/2020 3:00 PM EDT 01/21/2020 3:00 PM EDT Narrative [employer] [facility] - 01/21/2020 8:07 PM EDT Ingestion of smooth doses of biotin (>5 mg/day) taken within 8 hours of drawing blood sample can interfere with this immunoassay test. Ryan Davis MD CHEMISTRY ORDERABLES Final Res ult Performing Organization Address [facility] de Phone Number [facility] [employer] [address] , [place] [address] * T4, FREE (THYROXINE) (01/21/2020 3:00 PM EDT) Free T4 1.03 0.80 - 2.00 ng/dL 01/21/2020 8:07 PM EDT [facility] [employer] Blood VENOUS BLOOD / Unknown Venipuncture / Unknown 01/21/2020 3:00 PM EDT 01/21/2020 3:00 PM EDT Narrative [facility] - 01/21/2020 8:07 PM EDT Ingestion of smooth doses of biotin (>5 mg/day) taken within 8 hours of drawing blood sample can interfere with this immunoassay test. Ryan Davis MD CHEMISTRY ORDERABLES Final Res ult Performing Organization Address [facility] Phone Number [facility] [employer] [address] , [place] [phone] * THYROID STIMULATING HORMONE (01/21/2020 3:00 PM EDT) TSH 2.100 0.270 - 4.200 mcIU/mL 01/21/2020 8:07 PM EDT [facility] Blood VENOUS BLOOD / Unknown Venipuncture / Unknown 01/21/2020 3:00 PM EDT 01/21/2020 3:00 PM EDT [facility] [employer] - 01/21/2020 8:07 PM EDT Ingestion of smooth doses of biotin (>5 mg/day) taken within 8 hours of drawing blood sample can interfere with this immunoassay test. us Ryan Davis MD CHEMISTRY ORDERABLES Final Res ult [facility] [address] [place] [address] [place] [address] documented in this encounter Visit Diagnoses Diagnosis Chronic cough- Primary Cough Gastroesophageal reflux disease, esophagitis presence not specified Hypothyroidism (acquired) Unspecified hypothyroidism Elevated BP without diagnosis of hypertension documented in this encounter Discontinued Medications Medication Sig Discontinue Reason Start Date End Da te LEVOthyroxine (SYNTHROID) 25 mcg Oral TabletIndications:Hypothy roidism (acquired) Take 1 Tab by mouth daily. Reorder 08/07/2019 11/26/2019 documented as of this encounter Care Teams Sql Server Architect Relationship Specialty Start Date End Date Ryan Davis MD [address] [place] [address] [place] [address] PCP - General Family Medicine 07/23/19 documented as of this encounter
--- OUTSIDE RECORDS SUMMARY | 2024-10-02 22:01 | XMS_ITS | Encounter Summary ---
Author Organization [place] [address] Care Team Providers Care Building Rigger Name Role Phone Tristan Marion MD Primary Care Provider [phone] Reason for Visit * Reason Onset Date Comments Nausea 10/09/2018 Encounter Details Date Type Department Care Team (Late st Contact Info) Description 10/09/2018 Telephone SEP [facility] [place] [address] Tristan Marion MD [address] [place] [address] Nausea Social History Tobacco Use Types Packs/Day Years Used Date Smoking Tobacco: Never Smokeless Tobacco: Never Alcohol Use Standard Drinks/Week Comments No 0 (1 standard drink = 0.6 oz pur e alcohol) Sex and Gender Information Value Date Recorded Sex Assigned at Not on file Legal Sex Male 9:34 PM EDT Gender Identity Not on file Sexual Orientation Not on file documented as of this encounter Miscellaneous Notes * Telephone Encounter - Audrey Reyna - 10/09/2018 9:39 AM EST ERROR. NOTE PUT ON INCORRECT PATIENT. * Telephone Encounter - Audrey Reyna - 10/09/2018 9:35 AM EST Jumana @ [facility] states that the pt is c/o nausea. They are wondering if someone can call in zofran to [facility]. Please advise Thank you documented in this encounter Plan of Treatment Not on file documented as of this encounter Visit Diagnoses Not on filedocumented in this encounter Care Teams Building Rigger Relationship Specialty Start Date End Date Tristan Marion MD [address] [place] [id number] PCP - General Family Medicine 02/12/13 05/31/19 documented as of this encounter
--- OUTSIDE RECORDS SUMMARY | 2024-10-02 22:01 | XMS_ITS | Encounter Summary ---
Author Organization [place] [address] Care Team Providers Care Well Logging Captain Name Role Phone Ryan Davis MD Primary Care Provider [phone] Encounter Details Date Type Department Care Team (Late st Contact Info) Description 08/07/2019 Orders Only SEP Karin [address] [place] [address] Ryan Davis MD [address] [place] [address] [place] [address] Hypothyroidism (acquired) (Primary Dx) Social History Tobacco Use Types [...] of Assessment Author No 07/23/2019 1:05 PM Vince Xavier MA * Does this person have difficulty dressing or bathing? Answer Date of Assessment Author No 07/23/2019 1:05 PM Vince Xavier MA * Because of a physical, mental or emotional condition, does this person have difficulty doing errands alone such as visiting a doctor's office or shopping? Answer Date of Assessment Author No 07/23/2019 1:05 PM Vince Xavier MA documented as of this encounter Mental Status * Because of a physical, mental or emotional condition, does this person have serious difficulty concentrating, remembering or making decisions? Answer Entry Date Author No 07/23/2019 1:05 PM Vince Xavier MA documented in this encounter Ordered Prescriptions Prescription Sig Dispense Quantity Refills Last Filled Start Date End Date LEVOthyroxine (SYNTHROID) 25 mcg Oral TabletIndications:H ypothyroidism (acquired) Take 1 Tab by mouth daily. 30 Tab 1 08/07/2019 11/26/2019 documented in this encounter Plan of Treatment [...] of this encounter Visit Diagnoses Diagnosis Hypothyroidism (acquired)- Primary Unspecified hypothyroidism documented in this encounter Care Teams Well Logging Captain Relationship Specialty Start Date End Date Ryan Davis MD [address] [place] [address] [address] [place], [place] [address] PCP - General Family Medicine 07/23/19 documented as of this encounter
--- OUTSIDE RECORDS SUMMARY | 2024-10-02 22:01 | XMS_ITS | Encounter Summary ---
Author Organization [place] [address] Care Team Providers Care Casey Saw Operator Name Role Phone Ryan Davis MD Primary Care Provider [phone] Reason for Visit * Reason Onset Date Comments Medication Refill 03/03/2020 Encounter Details Date Type Department Care Team (Late st Contact Info) Description 03/03/2020 Refill SEP Karin [address] [place] [address] Ryan Davis MD [address] [place] [address] [place] [address] Medication Refill Social History Tobacco Use Types [...] Tab by mouth daily. 30 Tab 2 03/03/2020 06/05/2020 documented in this encounter Miscellaneous Notes * Telephone Encounter - Angelic Burgos CCMA - 03/03/2020 10:04 AM EDT Done * Telephone Encounter - Kelly Small - 03/03/2020 9:56 AM EDT Medication Refill Who is requesting the refill: Patient Medication(s)Name/Dosage/Frequency: LEVOthyroxine (SYNTHROID) 25 mcg Oral Tablet Did patient contact the pharmacy first: N/A How many days left on hand: 0 Future appt date w/ prescribing provider: n/a Pharmacy & Location: [facility] Additional Notes: documented in this encounter Plan [...] Take 1 Tab by mouth daily. Reorder 11/26/2019 03/03/2020 documented as of this encounter Care Teams Casey Saw Operator Relationship Specialty Start Date End Date Ryan Davis MD [address] [facility] [place] [address] PCP - General Family Medicine 07/23/19 documented as of this encounter
--- OUTSIDE RECORDS SUMMARY | 2024-10-02 22:01 | XMS_ITS | Encounter Summary ---
Author Organization [place] [address] Care Team Providers Care Spike Machine Heater Name Role Phone Ryan Davis MD Primary Care Provider Reason for Visit * Reason Comments Mass in in right armpit f or a week Encounter Details Date Type Department Care Team (Late st Contact Info) Description 11/18/2019 3:20 PM EST Office Visit JESUS [place] [address] [place] [address] Ryan Davis MD [address] [place] [address] [place] [address] Axillary adenopathy (Primary Dx) Social History Tobacco Use Types [...] Sign Reading Time Taken Comments Blood Pressure 138/88 11/18/2019 3:27 PM EST Pulse 81 11/18/2019 3:27 PM EST Temperature 36.8 ??C (98.2 ??F) 11/18/2019 3:27 PM ES T Respiratory Rate 18 11/18/2019 3:27 PM EST Oxygen Saturation 96% 11/18/2019 3:27 PM EST Inhaled Oxygen Concentration - - Weight 118.4 kg (261 lb) 11/18/2019 3:27 PM EST Height 177.8 cm (5' 10 ) 11/18/2019 3:27 PM EST Body Mass Index 37.45 11/18/2019 3:27 PM EST documented in this encounter Functional Status [...] 3:26 PM EST Vince Ray MA * Because of a physical, mental or emotional condition, does this person have difficulty doing errands alone such as visiting a doctor's office or shopping? Answer Date of Assessment Author No 11/18/2019 3:26 PM EST Vince Ray MA documented as of this encounter Mental Status * Because of a physical, mental or emotional condition, does this person have serious difficulty concentrating, remembering or making decisions? Answer Entry Date Author No 11/18/2019 3:26 PM EST Vince Ray MA documented in this encounter Progress Notes * Ryan Davis MD - 11/18/2019 3:20 PM EST Assessment Diagnoses and all orders for this visit: Axillary adenopathy Single axillary enlarged lymph node versus possible cyst. No tenderness on exam. No other surrounding areas of induration. No signs of overlying infection. Advised conservative management with monitoring for now. If any concerning symptoms occur advised that he follow-up closely in office for repeat examination. Progress Note: Vitals: 11/18/19 1527 BP: 138/88 Pulse: 81 Resp: 18 Temp: 98.2 ??F (36.8 ??C) TempSrc: Temporal SpO2: 96% Weight: 261 lb (118.4 kg) Height: 5' 10 (1.778 m) SUBJECTIVE: Chief Complaint Patient presents with ??? Mass in in right armpit for a week HPI: 1 week history of swollen bump in his right armpit. He states that the bump was the size of a grapeon Friday and is gradually decreased in size. He does have a recent history of a viral illness. He denies any recent fevers chills or night sweats. No weight loss. He denies any drainage from the site redness or tenderness. Review of Systems Constitutional: Negative for fatigue and fever. HENT: Positive for sore throat. Negative for congestion. Respiratory: Positive for cough. Negative for chest tightness and shortness of breath. Cardiovascular: Negative for chest pain. Gastrointestinal: Negative for abdominal pain. Neurological: Negative for headaches. OBJECTIVE: Physical Exam Vitals signs reviewed. Constitutional: General: He is not in acute distress. Appearance: He is well-developed. He is not diaphoretic. HENT: Head: Normocephalic and atraumatic. Eyes: Pupils: Pupils are equal, round, and reactive to light. Skin: Findings: No rash. Comments: Single round firm nodule near the center of the right axilla. Freely mobile. Approximately 5 mm in diameter. Neurological: General: No focal deficit present. Mental Status: He is alert and oriented to person, place, and time. Mental status is at baseline. Psychiatric: Behavior: Behavior normal. Thought Content: Thought content normal. Judgment: Judgment normal. documented in this encounter Plan of [...] as of this encounter Visit Diagnoses Diagnosis Axillary adenopathy- Primary Enlargement of lymph nodes documented in this encounter Care Teams Spike Machine Heater Relationship Specialty Start Date End Date Ryan Davis MD [address] [place] [address] [place] [address] PCP - General Family Medicine 07/23/19 documented as of this encounter
--- OUTSIDE RECORDS SUMMARY | 2024-10-02 22:01 | XMS_ITS | Encounter Summary ---
Author Organization [place] [address] Care Team Providers Care Jewelry Casting Model Maker Name Role Phone Ryan Davis MD Primary Care Provider [phone] Reason for Visit * Reason Onset Date Comments Referral 07/30/2019 Encounter Details Date Type Department Care Team (Late st Contact Info) Description 07/30/2019 Telephone SEP Karin [address] [place] [address] Ryan Davis MD [address] [place] [address] [place] [address] Referral Social History Tobacco Use Types Packs/Day Years [...] of Assessment Author No 07/23/2019 1:05 PM MARQUIST Vince Ray MA * Is the person [...] Vince Ray MA documented in this encounter Miscellaneous Notes * Telephone Encounter - Brett Ray MA - 07/30/2019 4:05 PM EDT lmtcb * Telephone Encounter - Audrey Reyna - 07/30/2019 8:30 AM EDT Pt was referred by Dr. Davis to Dr. Regis gamez. They can't get him in until November. They told him that they may be able to get him in sooner if wecall. Please advise Thank you documented in this [...] on filedocumented in this encounter Care Teams Jewelry Casting Model Maker Relationship Specialty Start Date End Date Ryan Davis MD [address] [place] [address] [address] [place], [place] [address] PCP - General Family Medicine 07/23/19 documented as of this encounter
--- OUTSIDE RECORDS SUMMARY | 2024-10-02 22:01 | XMS_ITS | Encounter Summary ---
Author Organization [place] [address] Care Team Providers Care Impregnating Tank Operator Name Role Phone Ryan Davis MD Primary Care Provider [phone] Reason for Visit * Reason Onset Date Comments Prior Authorization 07/23/2019 cologuard Encounter Details Date Type Department Care Team (Late st Contact Info) Description 07/23/2019 Telephone [facility] [place] [address] [place] [address] Ryan Davis MD [address] [place] [address] [place] [address] Prior Authorization (cologuard) Social History Tobacco Use Types Packs/Day Years [...] encounter Miscellaneous Notes * Telephone Encounter - Jelena Dang RMA - 07/23/2019 1:16 PM EDT No completed Colon Cancer Screening documented in patient's chart as of today. Cologuard order released, ES will contact patient * Telephone Encounter - Adrienne Klein MA - 07/23/2019 1:13 PM EDT [facility] will cover cologuard 100% of allowable, No PA req. documented in this encounter Plan of Treatment [...] on filedocumented in this encounter Care Teams Impregnating Tank Operator Relationship Specialty Start Date End Date Ryan Davis MD [address] [place] [address] [place] [address] PCP - General Family Medicine 07/23/19 documented as of this encounter
--- OUTSIDE RECORDS SUMMARY | 2024-10-02 22:01 | XMS_ITS | Encounter Summary ---
Author Organization [place] [address] Care Team Providers Care Mechanical Reliability Engineer Name Role Phone Ryan Davis MD Primary Care Provider [phone] Encounter Details Date Type Department Care Team (Late st Contact Info) Description 09/07/2020 Orders Only [facility]in [address] [place] [address] Daniela Stringer, ASSOCIATE BRAND MANAGER [address] [place] [address] Hypothyroidism (acquired) Social History Tobacco Use Types [...] have Coronavirus / COVID-19? No / Unsure 09/04/2020 8:51 AM EDT documented as of this encounter [...] (acquired) Take 1 Tab by mouth daily. 90 Tab 3 09/07/2020 09/07/2020 documented in this encounter Plan of Treatment [...] ONE TABLET BY MOUTH ONCE DAILY Reorder 06/05/2020 09/07/2020 documented as of this encounter Care Teams Mechanical Reliability Engineer Relationship Specialty Start Date End Date Ryan Davis MD [address] [place] [address] [place], [place] [address] PCP - General Family Medicine 07/23/19 documented as of this encounter
--- OUTSIDE RECORDS SUMMARY | 2024-10-02 22:01 | XMS_ITS | Encounter Summary ---
Author Organization [place] [address] Care Team Providers Care Customer Engineering Specialist Name Role Phone Tristan Marion MD Primary Care Provider [phone] Reason for Visit * Reason Comments Sore Throat hurts to talk Congestion chest congestion Cough productive Encounter Details Date Type Department Care Team (Late st Contact Info) Description 10/21/2014 11:15 AM EST Office Visit [facility] [place] [facility] [place] [address] Tristan Marion MD [address] [place] [address] Bronchitis (Primary Dx) Social History Tobacco Use [...] Sign Reading Time Taken Comments Blood Pressure 102/74 10/21/2014 11:27 AM EST Pulse 77 10/21/2014 11:27 AM EST Temperature 36.9 ??C (98.4 ??F) 10/21/2014 11:[address] Respiratory Rate 16 10/21/2014 11:27 AM EST Oxygen Saturation 96% 10/21/2014 11:27 AM EST Inhaled Oxygen Concentration - - Weight 114.8 kg (253 lb) 10/21/2014 11:27 AM EST Height 177.8 cm (5' 10 ) 10/21/2014 11:27 AM EST Body Mass Index 36.3 10/21/2014 11:27 AM EST documented in this encounter Ordered Prescriptions Prescription Sig Dispense Quantity Refills Last Filled Start Date End Date azithromycin (ZITHROMAX) 250 mg Oral TabletIndications: Bronchitis Take 2 tablets (500 mg) on Day 1, followed by 1 tablet (250 mg) once daily on Days 2 through 5. 6 Tab 0 10/21/2014 4 documented in this encounter Progress Notes * Tristan Marion MD - 10/21/2014 11:23 AM EST Subjective: Patient ID: Azalia Ge is a 44 y.o. male. Chief Complaint Patient presents with ??? Sore Throat hurts to talk ??? Congestion chest congestion ??? Cough productive HPI Patients past medical, family and social histories were reviewed and updated. There were no changesexcept as noted. Review of Systems Objective: Filed Vitals: 10/21/14 1127 BP: 102/74 Pulse: 77 Temp: 98.4 ??F (36.9 ??C) TempSrc: Oral Resp: 16 Height: 5' 10 (1.778 m) Weight: 253 lb (114.76 kg) SpO2: 96% Body mass index is 36.3 kg/(m^2). Physical Exam NAD PERRL EOMI Wheeze with cough RR no murmur ABD soft nontender non distended No C/C/E Non focal neuro exam Assessment and Plan: Azalia was seen today for sore throat, congestion and cough. Diagnoses and associated orders for this visit: Bronchitis - azithromycin (ZITHROMAX) 250 mg Oral Tablet; Take 2 tablets (500 mg) on Day 1, followed by 1 tablet (250 mg) once daily on Days 2 through 5. Other Orders - betamethasone acetate-betamethasone sodium phosphate (CELESTONE) injection 6 mg; Inject 1 mL intothe muscle once. - methylPREDNISolone acetate (DEPO-MEDROL) injection 80 mg; Inject 1 mL into the muscle once. otc remedies Return if symptoms worsen or fail to improve. Discussed diet and exercise see AVS Educated patient regarding the care plan and instructions listed on the After Visit Summary [AVS] for today's visit. The patient verbalized full understanding of the care plan and instructions given on the AVS for today's visit. documented in this encounter Miscellaneous Notes * Patient Instructions - JohannaXin VIPUL Clarke - 10/21/2014 11:24 AM EST 1. Count calories: Can look up on [employer]. Goal 1500 calories per day. 2. No fruit juice or regular POP. 3. Watch night time snacking. Good alternative is pop corn 4. Split meals when you eat out. 5. Smaller portions and fewer servings, leave food on your plate. 6. Aerobic exercise at least 3x per week. 7. Watch anything white like breads, pasta, and potatoes. (startches) Above tools can decrease current intake by 500 calories per day, which can provide good weight loss. Dietary information can be very confusing, and the research sometimes makes us positively vertiginous. The bulk of the evidence, though, supports the Mediterranean diet as the best at reducing the risk of heart disease and cancer, and at improving health. So that diet is the one which I recommend routinely to my patients. Other general recommendations from the wealth of nutritional research published currently: 1. Eat fewer white carbohydrates 2. Add low-fat milk products 3. Include whole grains 4. Eat fruits and vegetables 5. Add good oils Behavioral Modifications that can be helpful ?? Avoid eating everything on your plate. Though we should be appreciative that we have enough to eat, eating compulsively only leads to taking in many more calories than we intend. Leave one bite onyour plate to start paying attention to when your stomach is full. ?? Avoid distraction. Be mindful when you eat. Keep the television off. Don't eat at the movies. Listen to your body. ?? Eat only at meal time. Most of us are not disciplined enough to limit calories while eating snacks between meals. ?? Think of those hunger pangs as a good thing. If you experience hunger, you will start burning fat! But you must eat several times a day to keep your metabolic rate up, or your body will think you're starving and start lowering your metabolic rate to conserve fat for the famine! If you have diabetes or hypoglycemia, be careful and watch your blood sugars. Diet-Food Guide Pyramid, USDA For a 2,000-calorie diet, you need the amounts below from each food group. To find the amounts thatare right for you, go to MyPyramid.gov. GRAINS ?? Eat at least 6 oz. of whole-grain cereals, breads, crackers, rice or pasta every day. ?? 1 oz. is about 1 slice of breads, about 1 cup of cereal, or 1/2 cup of cooked rice, cereal or pasta. VEGETABLES ?? Eat 2 1/2 cups every day. ?? Eat more dark green veggies like broccoli, spinach and other dark leafy greens. ?? Eat more orange vegetables like carrots and sweet potatoes. ?? Eat dry beans and peas (traylor beans, kidney beans and lentils). FRUITS ?? Eat 2 cups every day. ?? Eat a variety of fruit. ?? Choose fresh, frozen, canned or dried fruit. ?? Go easy on fruit juices. MILK ?? Get 3 cups every day (for kids aged 2 to 8, drink 2 cups). ?? Go low-fat or fat-free when you choose milk, yogurt and other milk products. ?? If you do not or cannot drink milk, choose lactose-free products or other calcium sources such as fortified foods and beverages. MEAT AND BEANS ?? Eat 5 1/2 oz. every day. ?? Choose low-fat or lean meats and poultry. ?? Bake it, broil it or grill it. ?? Vary your protein routine. Choose more fish, beans, peas, nuts and seeds. FATS, SUGARS AND SALT (SODIUM) ?? Make most of your fat sources from fish, nuts and vegetable oils. ?? Limit solid fats like butter, margarine, shortening, and lard, as well as foods that contain these. ?? Check the nutrition facts label to keep saturated fats, trans fats, and sodium low. ?? Choose food and beverages low in added sugars. Added sugars contribute calories with few, if any, nutrients. Find your balance between food and physical activity. Information courtesy of USDA Center for Nutrition Policy and Promotion Document Released: 11/15/2008 Document Re-Released: 02/02/2009 ExitCare?? Patient Information ??2009 [employer] DASH Diet The DASH diet stands for Dietary Approaches to Stop Hypertension. It is a healthy eating plan that has been shown to reduce high blood pressure (hypertension) in as little as 14 days, while also possibly providing other significant health benefits. These other health benefits include reducing the risk of breast cancer after menopause and reducing the risk of type 2 diabetes, heart disease, colon cancer, and stroke. Health benefits also include weight loss and slowing kidney failure in patients with chronic kidney disease. DIET GUIDELINES ?? Limit salt (sodium). Your diet should contain less than 1500 mg of sodium daily. ?? Limit refined or processed carbohydrates. Your diet should include mostly whole grains. Dessertsand added sugars should be used sparingly. ?? Include small amounts of heart-healthy fats. These types of fats include nuts, oils, and tub margarine. Limit saturated and trans fats. These fats have been shown to be harmful in the body. CHOOSING FOODS The following food groups are based on a 2000 calorie diet. See your Registered Dietitian for individual calorie needs. Grains and Grain Products (6 to 8 servings daily) ?? Eat More Often: Whole-wheat bread, brown rice, whole-grain or wheat pasta, quinoa, popcorn without added fat or salt (air popped). ?? Eat Less Often: White bread, white pasta, white rice, cornbread. Vegetables (4 to 5 servings daily) ?? Eat More Often: Fresh, frozen, and canned vegetables. Vegetables may be raw, steamed, roasted, or grilled with a minimal amount of fat. ?? Eat Less Often/Avoid: Creamed or fried vegetables. Vegetables in a cheese sauce. Fruit (4 to 5 servings daily) ?? Eat More Often: All fresh, canned (in natural juice), or frozen fruits. Dried fruits without added sugar. One hundred percent fruit juice (?? cup [237 mL] daily). ?? Eat Less Often: Dried fruits with added sugar. Canned fruit in light or heavy syrup. Lean Meats, Fish, and Poultry (2 servings or less daily. One serving is 3 to 4 oz [85-114 g]). ?? Eat More Often: Ninety percent or leaner ground beef, tenderloin, sirloin. Round cuts of beef, chicken breast, turkey breast. All fish. [place], bake, or broil your meat. Nothing should be fried. ?? Eat Less Often/Avoid: Fatty cuts of meat, turkey, or chicken leg, thigh, or wing. Fried cuts of meat or fish. Dairy (2 to 3 servings) ?? Eat More Often: Low-fat or fat-free milk, low-fat plain or light yogurt, reduced-fat or part-skim cheese. ?? Eat Less Often/Avoid: Milk (whole, 2%).??Whole milk yogurt. Full-fat cheeses. Nuts, Seeds, and Legumes (4 to 5 servings per week) ?? Eat More Often: All without added salt. ?? Eat Less Often/Avoid: Salted nuts and seeds, canned beans with added salt. Fats and Sweets (limited) ?? Eat More Often: Vegetable oils, tub margarines without trans fats, sugar-free gelatin. Mayonnaise and salad dressings. ?? Eat Less Often/Avoid: Coconut oils, palm oils, butter, stick margarine, cream, half and half, cookies, candy, pie. FOR MORE INFORMATION The Dash Diet Eating Plan: www.dashdiet.org Document Released: 10/15/2012 Document Revised: 01/18/2013 Document Reviewed: 10/15/2012 ExitCare?? Patient Information ??2013 [employer]. documented in this encounter Plan of Treatment Not on file documented as of this encounter Visit Diagnoses Diagnosis Bronchitis- Primary Bronchitis, not specified as acute or chronic documented in this encounter Administered Medications Inactive Administered Medications - up to 1 most recent administrations Medication Order MAR Action Action Date Dose Rate Site betamethasone acetate-betamethasone sodium phosphate (CELESTONE) injection 6 mg 6 mg, Intramuscular, ONCE, 1 dose, On Fri10/21/14 at 1215 Given 10/21/2014 12:14 PM EST 6 mg Right Upper Outer Quadrant methylPREDNISolone acetate (DEPO-MEDROL) injection 80 mg 80 mg, Intramuscular, ONCE, 1 dose, On Fri10/21/14 at 1215 Given 10/21/2014 12:14 PM EST 80 mg Right Upper Outer Quadrant documented in this encounter Care Teams Customer Engineering Specialist Relationship Specialty Start Date End Date Tristan Marion MD [address] [place] [address] PCP - General Family Medicine 02/12/13 05/31/19 documented as of this encounter
--- OUTSIDE RECORDS SUMMARY | 2024-10-02 22:01 | XMS_ITS | Encounter Summary ---
Author Organization [place] [address] Care Team Providers Care Glove Presser Name Role Phone Tristan Marion MD Primary Care Provider [phone] Reason for Visit * Reason Onset Date Comments Orders 10/30/2018 Encounter Details Date Type Department Care Team (Late st Contact Info) Description 10/30/2018 Telephone [facility] [place] [place] [address] Tristan Marion MD [address] [place] [address] Orders Social History Tobacco Use Types Packs/Day Years [...] * Telephone Encounter - Audrey Reyna - 10/30/2018 1:05 PM EST Levy called stating that the pt came home from the hospital with an NG tube. He is weak and had anstroke while in the hospital. He was dx with aphasia. She called for orders for PT, OT and ST. I told her we would sign off on the orders. Thank you documented in this encounter Plan of Treatment Not on file documented as of this encounter Goals Goal Patient Goal Type Associated Problems Recent Progress Patient-Stated? Author Maintain a healthy diet, exercise regularly and maintain an ideal body weight Angelic Flynn, KATHARINE documented as of this encounter Visit Diagnoses Not on filedocumented in this encounter Care Teams Glove Presser Relationship Specialty Start Date End Date Tristan Marion MD [address] [facility] [place] [address] PCP - General Family Medicine 02/12/13 05/31/19 documented as of this encounter
--- OUTSIDE RECORDS SUMMARY | 2024-10-02 22:01 | XMS_ITS | Encounter Summary ---
Author Organization [place] [address] Care Team Providers Care Manager Part Name Role Phone Tristan Marion MD Primary Care Provider [phone] Reason for Visit * Reason Comments Hand Injury Since hand injury la [facility] still has knot on knuckle and hurts when hits it Encounter Details Date Type Department Care Team (Late st Contact Info) Description 07/15/2013 4:00 PM EDT Office Visit [facility] [place] [facility] [address] Tristan Marion MD [address] [facility] [address] Wound healing, delayed (Primary Dx) Social History Tobacco Use Types [...] Sign Reading Time Taken Comments Blood Pressure 140/84 07/15/2013 4:23 PM EDT Pulse 75 07/15/2013 4:23 PM EDT Temperature 37 ??C (98.6 ??F) 07/15/2013 4:23 PM EDT Respiratory Rate 16 07/15/2013 4:23 PM EDT Oxygen Saturation 97% 07/15/2013 4:23 PM EDT Inhaled Oxygen Concentration - - Weight 111.1 kg (245 lb) 07/15/2013 4:23 PM EDT Height 177.8 cm (5' 10 ) 07/15/2013 4:23 PM EDT Body Mass Index 35.15 07/15/2013 4:23 PM EDT documented in this encounter Progress Notes * Tristan Marion MD - 07/15/2013 4:24 PM EDT Subjective: Patient ID: Azalia Ge is a 43 y.o. male. Chief Complaint Patient presents with ??? Hand Injury Since hand injury last week still has knot on knuckle and hurts when hits it HPI BP Readings from Last 3 Encounters: 07/15/13 140/84 06/18/13 152/88 04/30/13 128/84 Wt Readings from Last 3 Encounters: 07/15/13 245 lb (111.131 kg) 06/18/13 245 lb (111.131 kg) 02/12/13 241 lb 9.6 oz (109.589 kg) Body mass index is 35.15 kg/(m^2). No past medical history on file. There is no problem list on file for this patient. Past Surgical History Procedure Laterality Date ??? 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 Review of patient's allergies indicates no known allergies. Family History Problem Relation Age of Onset ??? Diabetes Mother Diet controlled DM 2 ??? Colon Cancer Neg Hx ??? Prostate Cancer Neg Hx History Substance Use Topics ??? Smoking status: Never Smoker ??? Smokeless tobacco: Never Used ??? Alcohol Use: No Discussed diet and exercise see AVS Patients past medical, family and social histories were reviewed and updated. There were no changesexcept as noted. Review of Systems Constitutional: Negative for activity change and appetite change. Respiratory: Negative for cough. Cardiovascular: Negative for chest pain. Skin: Positive for wound. Neurological: Negative for dizziness and headaches. Objective: Filed Vitals: 07/15/13 1623 BP: 140/84 Pulse: 75 Temp: 98.6 ??F (37 ??C) TempSrc: Oral Resp: 16 Height: 5' 10 (1.778 m) Weight: 245 lb (111.131 kg) SpO2: 97% Body mass index is 35.15 kg/(m^2). Physical Exam 1 cm erythematous nodule over left 1st MTP. No s/s infection. Nodule is mobile and tender. Assessment and Plan: Azalia was seen today for hand injury. Diagnoses and associated orders for this visit: Wound healing, delayed Return if symptoms worsen or fail to improve. documented in this encounter Miscellaneous Notes * Patient Instructions - Astrid Francisco MA - 07/15/2013 4:24 PM EDT 1. Count calories: Can look up on [...] Document Re-Released: 02/02/2009 ExitCare?? Patient Information ??2009 [employer] documented in this encounter Plan of Treatment Not on file documented as of this encounter Visit Diagnoses Diagnosis Wound healing, delayed- Primary Open wound(s) (multiple) of unspecified site(s), complicated documented in this encounter Care Teams Manager Part Relationship Specialty Start Date End Date Tristan Marion MD [address] [place] [address] PCP - General Family Medicine 02/12/13 05/31/19 documented as of this encounter
--- OUTSIDE RECORDS SUMMARY | 2024-10-02 22:01 | XMS_ITS | Encounter Summary ---
Author Organization [place] [address] Care Team Providers Care Property Preservation Specialist Name Role Phone Ryan Davis MD Primary Care Provider [phone] Reason for Visit * Reason Comments Labs Only Encounter Details Date Type Department Care Team (Late st Contact Info) Description 08/06/2019 8:00 AM EDT Clinical Support JESUS [place] [address] [place] [id number] Astrid Caldwell E [address] [place] [address] Annual physical exam Social History Tobacco Use Types Packs/Day Years [...] Author No 07/23/2019 1:05 PM EDT Vince aRy MA * Does this person have serious [...] documented in this encounter Progress Notes * Astrid Caldwell - 08/06/2019 8:00 AM EDT Venipuncture in the right antecubital vein with 21 gauge needle, length 1 1/2 inch. documented in this encounter Plan of Treatment Not on file documented as of this encounter Goals Goal Patient Goal Type Associated Problems Recent Progress Patient-Stated? Author Maintain a healthy diet, exercise regularly and maintain an ideal body weight General No Aneglic Burgos CCMA Maintain a healthy diet, exercise regularly and maintain an ideal body weight General No Ryan Davis MD Stay Tobacco Free Lifestyle No Ryan Davis MD documented as of this encounter Procedures Procedure Name Priority Date/Time Associated Diagnosis Comments LIPID PANEL REFLEX Routine 08/06/2019 8: 00 AM EDT Annual physical exam TSH REFLEX Routine 08/06/2019 8:00 AM EDT Annual physical exam CBC WITH DIFF Routine 08/06/2019 8:00 AM EDT Annual physical exam T4, FREE (THYROXINE) Routine 08/06/2019 8:00 AM EDT Annual physical exam HEMOGLOBIN A1C Routine 08/06/2019 8:00 AM EDT Annual physical exam COMPREHENSIVE METABOLIC PANEL Routine 08/06/2019 8:00 AM EDT Annual physical exam documented in this encounter Results * (ABNORMAL) T4, FREE (THYROXINE) (08/06/2019 8:00 AM EDT) Free T4 0.78(L) 0.80 - 2.00 ng/dL 08/06/2019 8:47 PM EDT [facility] Blood VENOUS BLOOD / Unknown Venipuncture / Unknown 08/06/2019 8:00 AM EDT 08/06/2019 8:00 AM EDT Narrative [facility] - 08/06/2019 8:47 PM EDT Ingestion of smooth doses of biotin (>5 mg/day) taken within 8 hours of drawing blood sample can interfere with this immunoassay test. us Ryan Davis MD CHEMISTRY ORDERABLES Final Res ult [facility] [address] [facility] , [place] [address] * (ABNORMAL) COMPREHENSIVE METABOLIC PANEL (08/06/2019 8:00 AM EDT) Pathologist [facility] Sodium 141 136 - 145 mmol/L 08/06/2019 6:45 PM EDT [facility] Potassium 4.8 3.5 - 5.0 mmol/L 08/06/2019 6:45 PM EDT [facility] Chloride 101 98 - 107 mmol/L [...] 08/06/2019 6:45 PM EDT [facility] Creatinine 1.09 0.67 - 1.30 mg/dL 08/06/2019 6:45 PM EDT [facility] Albumin 4.3 3.5 - 5.2 gm/dL 08/06/2019 6:45 PM EDT [facility] Total Protein 7.7 6.4 - 8.3 gm/dL 08/06/2019 6:45 PM EDT [facility] Bili Total 0.5 0.1 - 1.4 mg/dL 08/06/2019 6:45 PM EDT [facility] ALT 52(H) <=41 IU/L 08/06/2019 6:45 PM EDT [facility], [facility] AST 29 <=40 IU/L 08/06/2019 6:45 PM EDT [facility], [facility] Alk Phos 49 40 - 129 IU/L 08/06/2019 6:45 PM EDT [facility], [facility] GFR Afr Am 90 >=60 mL/min/1.7 3 m2 08/06/2019 6:45 PM EDT [facility] GFR Non Afr Am 78 >=60 mL/min/1.7 3 m2 08/06/2019 6:45 PM EDT [facility] Comment: This estimated GFR was calculated [...] ORDERABLES Final Res ult [facility] [address] [facility] , [place] [address] [facility] [address] [place] [id number] * (ABNORMAL) HEMOGLOBIN A1C (08/06/2019 8:00 AM EDT) Pathologist [facility] Hgb A1C 5.9(H) 4.2 - 5.6 % 08/06/2019 4:20 PM EDT [facility] Est. Avg Glucose 123 mg/dL 08/06/2019 4:20 PM EDT [facility] Blood VENOUS BLOOD / Unknown Venipuncture / Unknown 08/06/2019 8:00 AM EDT 08/06/2019 8:00 AM EDT Narrative [facility] - 08/06/2019 4:20 PM EDT REFERENCE RANGE: [...] CHEMISTRY ORDERABLES Final Res ult [facility], [address], [place] [address] * (ABNORMAL) CBC WITH DIFF (08/06/2019 8:00 AM EDT) Pathologist [facility] WBC 6.8 3.7 - 10.3 x10(3)/mcL 08/06/2019 3:36 PM EDT [facility] RBC 5.69 4.60 - 6.10 x10(6)/mcL [...] 08/06/2019 3:36 PM EDT [facility] MCHC 32.6 30.7 - 35.5 g/dL 08/06/2019 3:36 PM EDT [facility] RDW 13.2 <=14.9 % 08/06/2019 3:36 PM EDT [facility] Platelet 186 155 - 369 x10(3)/[facility] 08/06/2019 3:36 PM EDT [facility] MPV 11.2 8.8 - 12.5 fL 08/06/2019 3:36 PM EDT [facility] Neut Percent 45.9 % 08/06/2019 3:36 PM EDT [facility] Comment:Neutrophils equals s egs plus bands Imm Gran% 0.4 % 08/06/2019 3:36 PM EDT [facility] Comment:Automated count of m etamyelocytes, myelocytes and promyelocytes. Lymph Percent 34.0 % 08/06/2019 3:36 PM EDT [facility] [place] Percent 10.4 % 08/06/2019 3:36 PM EDT [facility] Eos Percent 8.3 % 08/06/2019 3:36 PM EDT [facility] Baso Percent 1.0 % 08/06/2019 3:36 PM EDT [facility] Neut # 3.1 1.6 - 6.1 x10(3)/[facility] 08/06/2019 3:36 PM EDT [facility] Comment:Neutrophils equals s egs plus bands IMMGRAN# 0.0 0.0 - 0.1 x10(3)/[facility] 08/06/2019 3:36 PM EDT [facility] Comment:Automated count of m etamyelocytes, myelocytes and promyelocytes. An absolute IG <0.1 is reported as 0.0. Lymph # 2.3 1.2 - 3.9 x10(3)/[facility] 08/06/2019 3:36 PM EDT [facility] [place] # 0.7 0.3 - 0.9 x10(3)/[facility] 08/06/2019 3:36 PM EDT [facility] Eos# 0.6(H) 0.0 - 0.5 x10(3)/mcL 08/06/2019 3:36 PM EDT [facility] Baso # 0.1 0.0 - 0.1 x10(3)/mcL 08/06/2019 3:36 PM EDT [facility] Blood VENOUS BLOOD / Unknown Venipuncture / Unknown 08/06/2019 8:00 AM EDT 08/06/2019 8:00 AM EDT us Ryan Davis MD HEMATOLOGY ORDERABLES Final Re sult [facility] [address] [facility] , [place] [address] * (ABNORMAL) LIPID PANEL REFLEX (08/06/2019 8:00 AM EDT) Cholesterol 187 <=200 mg/dL 08/06/2019 6:46 PM EDT [facility] Comment: < 200 ?Desirable 200 - 239 ? Borderline High >= 240 ?High Triglyceride 141 <=150 mg/dL 08/06/2019 6:46 PM EDT [facility] Comment: < 150 ? Normal 150 - 199 ?Borderline High 200 - 499 ?High ??>= 500 ? Very High HDL 43 >=40 mg/dL 08/06/2019 6:46 PM EDT [facility] Comment: ??> 60 ?Optimal 40 - 60 ?Acceptable ?? < 40 ?Low LDL Calculated 116(H) <=100 mg/dL 08/06/2019 6:46 PM EDT [facility] Non-HDL-C Calculated 144(H) <=129 mg/dL 08/06/2019 6:46 PM EDT [facility] [employer] Comment: <130 ?Desirable 130-159 Above Desirable 160-189 Borderline High 190-219 High >= 220 ??Very High Fasting Specimen? Yes None 019 6:46 PM EDT [facility] Blood VENOUS BLOOD / Unknown Venipuncture / Unknown 08/06/2019 8:00 AM EDT 08/06/2019 8:00 AM EDT us Ryan Davis MD CHEMISTRY ORDERABLES Final Res ult Performing Organization Address [facility] de Phone Number [facility] [address] [facility] , [place] [address] * (ABNORMAL) TSH REFLEX (08/06/2019 8:00 AM EDT) TSH Reflex 5.620(H) 0.270 - 4.200 mcIU/mL 08/06/2019 8:21 PM EDT [facility] Blood VENOUS BLOOD / Unknown Venipuncture / Unknown 08/06/2019 8:00 AM EDT 08/06/2019 8:00 AM EDT Narrative [facility] - 08/06/2019 8:21 PM EDT Ingestion of smooth doses of biotin (>5 mg/day) taken within 8 hours of drawing blood sample can interfere with this immunoassay test. us Ryan Davis MD CHEMISTRY ORDERABLES Final Res ult Performing Organization Address [facility] de Phone Number [facility] [address] [place] [address] , [place] [address] documented in this encounter Visit Diagnoses Diagnosis Annual physical exam Routine general medical examination at a health care facility documented in this encounter Care Teams Property Preservation Specialist Relationship Specialty Start Date End Date Ryan Davis MD [address] [place] [address] [place] [address] PCP - General Family Medicine 07/23/19 documented as of this encounter
--- OUTSIDE RECORDS SUMMARY | 2024-10-02 22:01 | XMS_ITS | Encounter Summary ---
Author Organization [place] [address] Care Team Providers Care Bag Washer Name Role Phone Tristan [place] MD Primary Care Provider [phone] Reason for Visit * Reason Comments Cough since Friday Sore Throat Generalized Body Aches Encounter Details Date Type Department Care Team (Late st Contact Info) Description 06/30/2015 3:20 PM EDT Office Visit J[facility]US [place] [facility] [place] [address] Tristan [place] MD [address] [place] [address] Other acute sinusitis (Primary Dx); Other allergic rhinitis Social History Tobacco Use Types Packs/Day Years [...] Sign Reading Time Taken Comments Blood Pressure 144/92 06/30/2015 3:39 PM EDT Pulse 82 06/30/2015 3:39 PM EDT Temperature 36.6 ??C (97.9 ??F) 06/30/2015 3:39 PM ED T Respiratory Rate - - Oxygen Saturation 96% 06/30/2015 3:39 PM EDT Inhaled Oxygen Concentration - - Weight 113.9 kg (251 lb) 06/30/2015 3:39 PM EDT Height 177.8 cm (5' 10 ) 06/30/2015 3:39 PM EDT Body Mass Index 36.01 06/30/2015 3:39 PM EDT documented in this encounter Ordered Prescriptions Prescription Sig Dispense Quantity Refills Last Filled Start Date End Date loratadine (CLARITIN) 10 mg Oral TabletIndications: Other allergic rhinitis Take 1 Tab by mouth daily as needed. 30 Tab 6 06/30/2015 azithromycin (ZITHROMAX) 250 mg Oral TabletIndications: Other acute sinusitis Take 2 tablets (500 mg) on Day 1, followed by 1 tablet (250 mg) once daily on Days 2 through 5. 6 Tab 0 06/30/2015 5 documented in this encounter Progress Notes * Tristan [place] MD - 06/30/2015 3:38 PM EDT Subjective: Patient ID: Azalia Ge is a 45 y.o. male. Chief Complaint Patient presents with ??? Cough since Friday ??? Sore Throat ??? Generalized Body Aches HPI Patients past medical, family and social histories were reviewed and updated. There were no changesexcept as noted. Review of Systems Objective: Filed Vitals: 06/30/15 1539 BP: 144/92 Pulse: 82 Temp: 97.9 ??F (36.6 ??C) TempSrc: Oral Height: 5' 10 (1.778 m) Weight: 251 lb (113.853 kg) SpO2: 96% Body mass index is 36.01 kg/(m^2). Physical Exam NAD PERRL EOMI Nasal congestion Erythematous posterior pharynx CTA B RR no murmur ABD soft nontender non distended No C/C/E Non focal neuro exam Assessment and Plan: Azalia was seen today for cough, sore throat and generalized body aches. Diagnoses and associated orders for this visit: Other acute sinusitis - betamethasone acetate-betamethasone sodium phosphate (CELESTONE) injection 12 mg; Inject 2 mL into the muscle once. - azithromycin (ZITHROMAX) 250 mg Oral Tablet; Take 2 tablets (500 mg) on Day 1, followed by 1 tablet (250 mg) once daily on Days 2 through 5. Other allergic rhinitis - betamethasone acetate-betamethasone sodium phosphate (CELESTONE) injection 12 mg; Inject 2 mL into the muscle once. - loratadine (CLARITIN) 10 mg Oral Tablet; Take 1 Tab by mouth daily as needed. A new medicine was prescribed during this office visit. I educated patient about the reason for prescribing this new medication. I educated them of possible side effects, but also encouraged them to read the medication insert that will accompany their prescription and encouraged them to discuss anyquestions about the insert with their pharmacist. I also instructed to call if they experienced anyside effects or possible allergic reaction after taking the medication. I discussed the risk of stopping the medication or deviating from prescribing instructions. Dosing instructions are present on the AVS. I inquired to see if there were any questions and answered them accordingly. patient verb full understanding of the new medication education given at today???s visit. No Follow-up on file. patient was educated regarding the diagnosis, medications/treatment, goals, self-management tools and instructions based on their care plan. They verbalized full understanding of the education given on the After Visit Summary [AVS] for today's visit. They received a copy of the AVS in writing. Discussed diet and exercise see AVS documented in this encounter Miscellaneous Notes * Patient Instructions - Matti Lata Capri, Vince - 06/30/2015 3:39 PM EDT You may be contacted by mail or e-mail to participate in a patient satisfaction survey regarding your office visit today. We value your opinion and depend on your feedback to make improvements and provide you with the best possible experience while receiving high quality medical treatment. Your time in completing this survey is greatly appreciated. 1. Count calories: Can look up on [...] food and physical activity. Information courtesy of [employer] Document Released: 11/15/2008 Document Re-Released: 02/02/2009 ExitCare?? Patient Information ??2009 [employer] DASH Eating Plan DASH stands for Dietary Approaches to Stop Hypertension. The DASH eating plan is a healthy eatingplan that has been shown to reduce high blood pressure (hypertension). Additional health benefits may include reducing the risk of type 2 diabetes mellitus, heart disease, and stroke. The DASH eatingplan may also help with weight loss. WHAT DO I NEED TO KNOW ABOUT THE DASH EATING PLAN? For the DASH eating plan, you will follow these general guidelines: Choose foods with a percent daily value for sodium of less than 5% (as listed on the food label). Use salt-free seasonings or herbs instead of table salt or sea salt. Check with your health care provider or pharmacist before using salt substitutes. Eat lower-sodium products, often labeled as lower sodium or no salt added. Eat fresh foods. Eat more vegetables, fruits, and low-fat dairy products. Choose whole grains. Look for the word whole as the first word in the ingredient list. Choose fish and skinless chicken or turkey more often than red meat. Limit fish, poultry, and meat to 6 oz (170 g) each day. Limit sweets, desserts, sugars, and sugary drinks. Choose heart-healthy fats. Limit cheese to 1 oz (28 g) per day. Eat more home-cooked food and less restaurant, buffet, and fast food. Limit fried foods. Cook foods using methods other than frying. Limit canned vegetables. If you do use them, rinse them well to decrease the sodium. When eating at a restaurant, ask that your food be prepared with less salt, or no salt if possible. WHAT FOODS CAN I EAT? Seek help from a dietitian for individual calorie needs. Grains Whole grain or whole wheat bread. Brown rice. Whole grain or whole wheat pasta. Quinoa, bulgur, andwhole grain cereals. Low-sodium cereals. [place] or whole wheat flour tortillas. Whole grain cornbread. Whole grain crackers. Low-sodium crackers. Vegetables Fresh or frozen vegetables (raw, steamed, roasted, or grilled). Low-sodium or reduced-sodium tomatoand vegetable juices. Low-sodium or reduced-sodium tomato sauce and paste. Low-sodium or reduced-sodium canned vegetables. Fruits All fresh, canned (in natural juice), or frozen fruits. Meat and Other Protein Products Ground beef (85% or leaner), grass-fed beef, or beef trimmed of fat. Skinless chicken or turkey. Ground chicken or turkey. Pork trimmed of fat. All fish and seafood. Eggs. Dried beans, peas, or lentils. Unsalted nuts and seeds. Unsalted canned beans. Dairy Low-fat dairy products, such as skim or 1% milk, 2% or reduced-fat cheeses, low- fat ricotta or cottage cheese, or plain low-fat yogurt. Low-sodium or reduced- sodium cheeses. Fats and Oils Tub margarines without trans fats. Light or reduced-fat mayonnaise and salad dressings (reduced sodium). Avocado. Safflower, olive, or canola oils. Natural peanut or almond butter. Other Unsalted popcorn and pretzels. The items listed above may not be a complete list of recommended foods or beverages. Contact your dietitian for more options. WHAT FOODS ARE NOT RECOMMENDED? Grains White bread. White pasta. White rice. Refined cornbread. Bagels and croissants. Crackers that contain trans fat. Vegetables Creamed or fried vegetables. Vegetables in a cheese sauce. Regular canned vegetables. Regular canned tomato sauce and paste. Regular tomato and vegetable juices. Fruits Dried fruits. Canned fruit in light or heavy syrup. Fruit juice. Meat and Other Protein Products Fatty cuts of meat. Ribs, chicken wings, cabello, sausage, bologna, salami, chitterlings, fatback, hot dogs, bratwurst, and packaged luncheon meats. Salted nuts and seeds. Canned beans with salt. Dairy Whole or 2% milk, cream, xori-zia-sosh, and cream cheese. Whole-fat or sweetened yogurt. Full-fat cheeses or blue cheese. Nondairy creamers and whipped toppings. Processed cheese, cheese spreads, or cheese curds. Condiments Onion and garlic salt, seasoned salt, table salt, and sea salt. Canned and packaged gravies. Worcestershire sauce. Tartar sauce. Barbecue sauce. Teriyaki sauce. Soy sauce, including reduced sodium. Steak sauce. Fish sauce. Oyster sauce. Cocktail sauce. Horseradish. Ketchup and mustard. Meat flavorings and tenderizers. Bouillon cubes. Hot sauce. Tabasco sauce. Marinades. Taco seasonings. Relishes. Fats and Oils Butter, stick margarine, lard, shortening, ghee, and cabello fat. Coconut, palm kernel, or palm oils.Regular salad dressings. Other Pickles and olives. Salted popcorn and pretzels. The items listed above may not be a complete list of foods and beverages to avoid. Contact your dietitian for more information. WHERE CAN I FIND MORE INFORMATION? [employer] [place]: www.nhlbi.nih.gov/health/health-topics/topics/dash/ Document Released: 10/15/2012 Document Revised: 11/01/2014 Document Reviewed: 08/31/2014 ExitCare?? Patient Information ??2015 [employer]. This information is not intended to replace advice given to you by your health care provider. Make sure you discuss any questions you have with your health care provider. documented in this encounter Plan of Treatment Not on file documented as of this encounter Visit Diagnoses Diagnosis Other acute sinusitis- Primary Other allergic rhinitis documented in this encounter Administered Medications Inactive Administered Medications - up to 1 most recent administrations Medication Order MAR Action Action Date Dose Rate Site betamethasone acetate-betamethasone sodium phosphate (CELESTONE) injection 12 mg 12 mg, Intramuscular, ONCE, 1 dose, On Fri06/30/15 at 1700, Dx: 1. Other acute sinusitis 2. Other allergic rhinitisIndications:Oth er acute sinusitis,Other allergic rhinitis Given 06/30/2015 5:04 PM EDT 12 mg Right Upper Outer Quadrant documented in this encounter Historical Medications * This list may reflect changes made after this encounter. DM/PSEUDOEPHED/AC ETAMINOPHEN (VICKS DAYQUIL ORAL) Take by mouth as needed. 06/29/2024 added in this encounter Care Teams Bag Washer Relationship Specialty Start Date End Date Tristan [place] MD [address] [place] [address] PCP - General Family Medicine 02/12/13 05/31/19 documented as of this encounter
--- OUTSIDE RECORDS SUMMARY | 2024-10-02 22:01 | XMS_ITS | Encounter Summary ---
Author Organization [place] [address] Care Team Providers Care Laborer Concrete Paving Name Role Phone Tristan Maroin MD Primary Care Provider [phone] Reason for Visit * Reason Onset Date Comments Other 10/12/2018 Encounter Details Date Type Department Care Team (Late st Contact Info) Description 10/12/2018 Telephone [facility] [place] [address] Tristan [place] MD [address] [place] [address] Other Social History Tobacco Use Types Packs/Day Years [...] encounter Miscellaneous Notes * Telephone Encounter - Jaylene Jonas CMA - 10/12/2018 11:05 AM EST Pt is currently on his way back to [facility]... FYI * Telephone Encounter - Angelic Burgos CCMA - 10/12/2018 9:34 AM EST HH requesting a call from Jaylene. She is thinking pt may need to go back to the hospital. His bp is72/50 sitting. She tried to stand him and he fell back in to the chair he had a fall yesterday morning. Please call, thank you documented in this encounter Plan of Treatment Not on file documented as of this encounter Goals Goal Patient Goal Type Associated Problems Recent Progress Patient-Stated? Author Maintain a healthy diet, exercise regularly and maintain an ideal body weight General No Angelic Burgos CCMA documented as of this encounter Visit Diagnoses Not on filedocumented in this encounter Care Teams Laborer Concrete Paving Relationship Specialty Start Date End Date Tristan [place] MD [address] [place] [address] PCP - General Family Medicine 02/12/13 05/31/19 documented as of this encounter
--- OUTSIDE RECORDS SUMMARY | 2024-10-02 22:01 | XMS_ITS | Encounter Summary ---
Author Organization [facility] [place] [address] Care Team Providers Care Event Decorator And Designer Name Role Phone Ryan Davis MD Primary Care Provider [phone] Encounter Details Date Type Department Care Team (Latest Contact Info) Description 01/21/2020 Travel Social History Tobacco Use Types Packs/Day [...] on filedocumented in this encounter Care Teams Event Decorator And Designer Relationship Specialty Start Date End Date Ryan Davis MD [address] [place] [address] [place], [place] [address] PCP - General Family Medicine 07/23/19 documented as of this encounter
--- OUTSIDE RECORDS SUMMARY | 2024-10-02 22:01 | XMS_ITS | Encounter Summary ---
Author Organization [place] [address] Care Team Providers Care Locomotive Firer/Fireman Name Role Phone Ryan Davis MD Primary Care Provider [phone] Reason for Visit * Reason Comments Medication Refill Encounter Details Date Type Department Care Team (Late st Contact Info) Description 06/05/2020 Refill [facility] [address] [place] [address] Ryan Davis MD [address] [place] [address] [place] [address] Medication Refill Social History Tobacco Use Types [...] TAKE ONE TABLET BY MOUTH ONCE DAILY 30 Tab 2 06/05/2020 09/07/2020 documented in this encounter Plan of [...] (acquired) Take 1 Tab by mouth daily. 03/03/2020 06/05/2020 documented as of this encounter Care Teams Locomotive Firer/Fireman Relationship Specialty Start Date End Date Ryan Davis MD [address] [place] [address] [place], [place] [address] PCP - General Family Medicine 07/23/19 documented as of this encounter
--- OUTSIDE RECORDS SUMMARY | 2024-10-02 22:01 | XMS_ITS | Encounter Summary ---
Author Organization [place] [address] Care Team Providers Care Weigh Box Tender Name Role Phone Tristan Marion MD Primary Care Provider [phone] Reason for Visit * Reason Comments Other BP check for employm ent Encounter Details Date Type Department Care Team (Latest Contact Info) Description 04/29/2013 10:40 AM EDT Clinical Support J[facility] [place] [address] [place] [id number] Regine Burks, A [address] [place] [address] Blood pressure check (Primary Dx) Social History Tobacco Use Types [...] Sign Reading Time Taken Comments Blood Pressure 128/84 04/30/2013 1:30 PM EDT Pulse - - Temperature - - Respiratory Rate - - Oxygen Saturation - - Inhaled Oxygen Concentration - - Weight - - Height - - Body Mass Index - - documented in this encounter Miscellaneous Notes * Patient Instructions - Regine Burks MA - 04/30/2013 1:30 PM EDT Thank you for enrolling in [employer]. Please follow the instructions below to securely access your online medical record. [employer] allows you to send messages to your doctor, view your test results, renew your prescriptions, request appointments and more. How Do I Sign Up? 1. In your Internet browser, navigate to [email or web address] or [email or web address] and click on the [employer] link. 2. Click on the Use your Activation Code button in the New User Registration section on the right. You will see the Please Identify Yourself page. 3. Enter your [employer] Activation Code exactly as it appears below. You will not need to use this code after you???ve completed the sign-up process. This activation code will 60 days after the date at the top of this page at which time you must request a new code from your doctors office. [employer] Activation Code: [email or web address] Expires: 06/29/2013 1:30 PM 4. Enter your Social Security Number ([id number]) and Date of (mm/dd/yyyy) as indicated and click Next. You will be taken to the next sign-up page. 5. Create a [employer] ID. This will be your [employer] login ID and cannot be changed, so think of one that is secure and easy to remember. 6. Create a [employer] password. You can change your password at any time. 7. Enter your Password Reset Question and Answer. This can be used at a later time if you forget your password. Click Next. 8. Enter your e-mail address. You will receive e-mail notification when new information is available in [employer]. 9. Click Sign Up. You can now view your medical record. Additional Information Additional Information If you have questions, call your doctors office to talk to a [employer] staff member. Remember, [employer] is NOT to be used for urgent needs. For medical emergencies, dial 911. documented in this encounter Plan of Treatment Not on file documented as of this encounter Visit Diagnoses Diagnosis Blood pressure check- Primary Screening for hypertension documented in this encounter Care Teams Weigh Box Tender Relationship Specialty Start Date End Date Tristan Marion MD [address] [place] [phone] PCP - General Family Medicine 02/12/13 05/31/19 documented as of this encounter
--- OUTSIDE RECORDS SUMMARY | 2024-10-02 22:01 | XMS_ITS | Encounter Summary ---
Author Organization [facility] [place] [address] Care Team Providers Care Methods Analyst Data Processing Name Role Phone Ryan Davis MD Primary Care Provider [phone] Encounter Details Date Type Department Care Team (Latest Contact Info) Description 01/19/2020 Travel Social History Tobacco Use Types Packs/Day [...] an ideal body weight General No Angelic [facility] CCMA Maintain a healthy diet, exercise regularly and maintain an ideal body weight General No Ryan Davis MD Stay Tobacco Free Lifestyle No Ryan Davis MD documented as of this encounter Visit Diagnoses Not on filedocumented in this encounter Care Teams Methods Analyst Data Processing Relationship Specialty Start Date End Date Ryan Davis MD [address] [place] [address] [place], [place] [address] PCP - General Family Medicine 07/23/19 documented as of this encounter
--- OUTSIDE RECORDS SUMMARY | 2024-10-02 22:01 | XMS_ITS | Encounter Summary ---
Author Organization [place] [address] Care Team Providers Care Cna Caregiver Name Role Phone Ryan Davis MD Primary Care Provider [phone] Reason for Referral * Ultrasound (Routine) - Closed Specialty Diagnoses / Procedures Referred By Contac t Referred To Contact Radiology Diagnoses Hypothyroidism (acquired) Procedures US THYROID Daniela Stringer APRN [address] [place] [address] Phone: tel: fax: Referral ID Status Reason Start Date Expiration Date Visits Re quested Visits Authorized [id number] Closed 09/06/2020 09/06/2021 1 1 Reason for Visit * Reason Comments Hypothyroidism f/u from may visit Encounter Details Date Type Department Care Team (Late st Contact Info) Description 09/06/2020 3:40 PM EDT Office Visit JESUS CERVANTES [address] [place] [phone] Daniela Stringer APRN [address] [facility] [place] [address] Well adult exam (Primary Dx); Prediabetes; Hypothyroidism (acquired); Lipid screening; Obesity, Class II, BMI 35-39.9; Screening for prostate cancer; Dietary counseling Social History Tobacco Use Types Packs/Day Years [...] Sign Reading Time Taken Comments Blood Pressure 132/78 09/06/2020 3:48 PM EDT Pulse 76 09/06/2020 3:48 PM EDT Temperature 36.3 ??C (97.3 ??F) 09/06/2020 3:48 PM ED T Respiratory Rate 16 09/06/2020 3:48 PM EDT Oxygen Saturation 98% 09/06/2020 3:48 PM EDT Inhaled Oxygen Concentration - - Weight 119.7 kg (264 lb) 09/06/2020 3:48 PM EDT Height 177.8 cm (5' 10 ) 09/06/2020 3:48 PM EDT Body Mass Index 37.88 09/06/2020 3:48 PM EDT documented in this [...] Assessment Author No 11/18/2019 3:26 PM Vince Romna MA * Does this person have difficulty [...] Vince Roman MA documented in this encounter Progress Notes * Daniela Stringer APRN - 09/06/2020 3:40 PM EDT Assessment Diagnoses and all orders for this visit: Well adult exam - CBC WITH DIFF; Future - COMPREHENSIVE METABOLIC PANEL; Future Prediabetes Overview: Lab Results Component Value Date HGBA1C 5.8 (H) 06/05/2020 HGBA1C 5.9 (H) 08/06/2019 Diet control Orders: - HEMOGLOBIN A1C; Future Hypothyroidism (acquired) Overview: On synthroid Check labs Get baseline u/s Orders: - THYROID STIMULATING HORMONE; Future - T4, FREE (THYROXINE); Future - US THYROID; Future Lipid screening - LIPID SCREEN; Future Obesity, Class II, BMI 35-39.9 Overview: Diet/exercise. Screening for prostate cancer - PROSTATE SPECIFIC ANTIGEN (SCREENING); Future Dietary counseling Progress Note: Vitals: 09/06/20 1548 BP: 132/78 Pulse: 76 Resp: 16 Temp: 97.3 ??F (36.3 ??C) TempSrc: Temporal SpO2: 98% Weight: 264 lb (119.7 kg) Height: 5' 10 (1.778 m) SUBJECTIVE: Chief Complaint Patient presents with ??? Hypothyroidism f/u from may visit HPI: Well Adult: Subjective Mr. GE is a 50 y.o. male here for an annual wellness visit. Diet: balanced Exercise: Very physically active Activities of Daily Living: Functional Level: Self-care ADL Limitations: none Social Interaction Screen: Do you have concerns about issues that may impact social interaction such as developmental or behavioral/mental health conditions? no Health Maintenance Due Topic Date Due ??? Zoster (1 of 2) 2018 ??? Annual Wellness Exam 07/23/2020 Health Maintenance Topic Date Due ??? Zoster (1 of 2) 2018 ??? Annual Wellness Exam 07/23/2020 ??? Influenza Vaccine (1) 05/09/2021 (Originally 07/11/2020) ??? Colon Cancer Screening: Cologuard 08/07/2022 There is no immunization history on file for this patient. Patient Active Problem List Diagnosis ??? Hypothyroidism (acquired) ??? Prediabetes ??? Obesity, Class II, BMI 35-39.9 Past Medical History: Diagnosis Date ??? Hypothyroidism (acquired) 08/07/2019 Past Surgical History: Procedure Laterality Date ??? SKIN CANCER EXCISION No Known Allergies Current Outpatient Medications on File Prior to Visit Medication Sig Dispense Refill ??? LEVOthyroxine (SYNTHROID) 25 mcg Oral Tablet TAKE ONE TABLET BY MOUTH ONCE DAILY 30 Tab 2 No current facility-administered medications on file prior [...] Age of Onset ??? Diabetes Mother ??? Colon Cancer Maternal Aunt ??? Cancer Maternal Uncle ??? Lung Cancer Maternal Uncle ??? Diabetes Maternal Uncle ??? Cancer Paternal Uncle ??? Lung Cancer Paternal Grandfather ??? Kidney Disease Father possible cancer No exam data present No results found for this visit on 09/06/20. Patient Care Team: Ryan Davis MD as PCP - General (Family Medicine) Lab Results Component Value Date WBC 6.8 08/06/2019 HGB 16.2 08/06/2019 HCT 49.7 08/06/2019 PLT 186 08/06/2019 CHOLESTEROL 187 08/06/2019 TRIG 141 08/06/2019 HDL 43 08/06/2019 LDLCALC 116 (H) 08/06/2019 ALT 52 (H) 08/06/2019 AST 29 08/06/2019 NA 141 08/06/2019 K 4.8 08/06/2019 CL 101 08/06/2019 CREATININE 1.09 08/06/2019 BUN 15 08/06/2019 CO2 29 08/06/2019 TSH 2.100 01/21/2020 GLU 111 (H) 08/06/2019 HGBA1C 5.8 (H) 06/05/2020 TSHREFLEX 2.380 06/05/2020 Additional issues addressed today: Has mild thyroid disease. Has weight gain. On low dose. Ran out of med one day ago. Due for recheckon labs. Review of Systems Constitutional: Negative for activity change, appetite change, fatigue, fever and unexpected weightchange. HENT: Negative for congestion, ear pain, hearing loss, rhinorrhea, sneezing and sore throat. Eyes: Negative for photophobia, pain, discharge and visual disturbance. Respiratory: Negative for cough, shortness of breath, wheezing and stridor. Cardiovascular: Negative for chest pain, palpitations and leg swelling. Gastrointestinal: Negative for abdominal pain, constipation, diarrhea, nausea and vomiting. Endocrine: Negative for polydipsia, polyphagia and polyuria. Genitourinary: Negative for decreased urine volume, dysuria, frequency and urgency. Musculoskeletal: Negative for back pain, gait problem and joint swelling. Skin: Negative for color change, rash and wound. Neurological: Negative for dizziness, weakness, numbness and headaches. Hematological: Negative for adenopathy. Does not bruise/bleed easily. Psychiatric/Behavioral: Negative for confusion and sleep disturbance. The patient is not nervous/anxious. OBJECTIVE: Physical Exam Constitutional: Appearance: He is well-developed. HENT: Head: Normocephalic and atraumatic. Eyes: Pupils: Pupils are equal, round, and reactive to light. Neck: Musculoskeletal: Normal range of motion and neck supple. Thyroid: No thyromegaly. Cardiovascular: Rate and Rhythm: Normal rate and regular rhythm. Heart sounds: Normal heart sounds. No murmur. No friction rub. No gallop. Pulmonary: Effort: Pulmonary effort is normal. Breath sounds: Normal breath sounds. No wheezing or rales. Abdominal: Palpations: Abdomen is soft. Tenderness: There is no abdominal tenderness. There is no guarding or rebound. Lymphadenopathy: Cervical: No cervical adenopathy. Skin: General: Skin is warm and dry. Coloration: Skin is not pale. Findings: No erythema or rash. Neurological: Mental Status: He is alert and oriented to person, place, and time. Cranial Nerves: No cranial nerve deficit. Psychiatric: Behavior: Behavior normal. Thought Content: Thought content normal. Judgment: Judgment normal. * Astrid Caldwell - 09/06/2020 3:40 PM EDT Venipuncture in the right antecubital vein with 21 gauge needle, length 1 1/2 inch. documented in this encounter Miscellaneous Notes * Patient Instructions - Daniela Stringer APRN - 09/06/2020 3:40 PM EDT CALL [phone] TO SCHEDULE YOUR ULTRASOUND documented in this encounter Plan of Treatment Scheduled Orders Name Type Priority Associated Diagnoses Orde r Schedule US THYROID Imaging Routine Hypothyroidism (acquired) 1 Occurrences starting 09/06/2020 until 09/06/2021 documented as of this encounter Goals Goal [...] Procedure Name Priority Date/Time Associated Diagnosis Comments PROSTATE SPECIFIC ANTIGEN (SCREENING) Routine 09/06/2020 4:04 PM EDT Screening for prostate cancer CBC WITH DIFF Routine 09/06/2020 4:04 PM EDT Well adult exam THYROID STIMULATING HORMONE Routine 09/06/2020 4:04 PM EDT Hypothyroidism (acquired) T4, FREE (THYROXINE) Routine 09/06/2020 4:04 PM EDT Hypothyroidism (acquired) HEMOGLOBIN A1C Routine 09/06/2020 4:04 PM EDT Prediabetes COMPREHENSIVE METABOLIC PANEL Routine 09/06/2020 4:04 PM EDT Well adult exam documented in this encounter Results * (ABNORMAL) LIPID SCREEN (09/12/2020 10:18 AM EST) Cholesterol 173 <200 mg/dL 09/12/2020 4:05 PM EST [employer] [employer] Comment: < 200 ?Desirable 200 - 239 ? Borderline High >= 240 ?High Triglyceride 102 <150 mg/dL 09/12/2020 4:05 PM EST [facility] Comment: < 150 ? Normal 150 - 199 ?Borderline High 200 - 499 ?High ??>= 500 ? Very High HDL 44 >=40 mg/dL 09/12/2020 4:05 PM EST [facility] Comment: ??> 60 ?Optimal 40 - 60 ?Acceptable ?? < 40 ?Low LDL Calculated 109(H) <100 mg/dL 09/12/2020 4:05 PM EST [facility] Comment: < 100 ?Optimal 100 - 129 ? Near or above optimal 130 - 159 ? Borderline High 160 - 189 ? High >= 190 ?Very High Non-HDL-C Calculated 129 <=129 mg/dL 09/12/2020 4:05 PM EST [facility] Comment: <130 ?Desirable 130-159 Above Desirable 160-189 Borderline High 190-219 High >= 220 ??Very High Fasting Specimen? Yes None 020 4:05 PM EST [facility] Blood VENOUS BLOOD / Unknown Venipuncture / Unknown 09/12/2020 10:18 AM EST 09/12/2020 10:18 AM EST us Daniela Stringer APRN CHEMISTRY ORDERABLES Final Result [facility] [employer] [address] [facility] [facility] , [place] [address] * PROSTATE SPECIFIC ANTIGEN (SCREENING) (09/06/2020 4:04 PM EDT) Total Psa 0.98 <=4.00 ng/mL 09/06/2020 8:05 PM EDT [facility] Blood Venipuncture / Unknown 09/06/2020 4:04 PM EDT 09/06/2020 4:04 PM EDT Narrative [facility] - 09/06/2020 8:05 PM EDT Prostate cancer screening with the PSA test is controversial and varying recommendation exists among several Urologic, Governmental, and Oncologic organizations. The decision to test the prostate for cancer should be based on a discussion between the patient and the physician. Given that the PSA value varies with age, prostate size, prostate activity, and between blood tests, consideration should be given to prostatic hypertrophy, prostate inflammation, perineal activity (including bicycle riding and digital rectal exam), and prior PSA levels. Lastly, higher risk prostate cancers can occur in certain ethnic groups and low PSA states, consideration of history and physical findings should guide screening decision making. Ingestion of smooth doses of biotin (>5 mg/day) taken within 8 hours of drawing blood sample can interfere with this immunoassay test. [employer] CHEMISTRY ORDERABLES Final Result Performing Organization Address [facility] Co de Phone Number [facility] [employer] [address] [facility] , [place] [address] * T4, FREE (THYROXINE) (09/06/2020 4:04 PM EDT) Free T4 0.93 0.80 - 1.70 ng/dL 09/06/2020 8:00 PM EDT [facility] Blood UPPER LIMB STRUCTURE / Unknown Venipuncture / Unknown 09/06/2020 4:04 PM EDT 09/06/2020 4:04 PM EDT Narrative [facility] - 09/06/2020 8:00 PM EDT Ingestion of smooth doses of biotin (>5 mg/day) taken within 8 hours of drawing blood sample can interfere with this immunoassay test. [employer] CHEMISTRY ORDERABLES Final Result Performing Organization Address City/[facility]/ZIP Co de Phone Number [facility] [employer] [address] , [place] [address] * THYROID STIMULATING HORMONE (09/06/2020 4:04 PM EDT) Pathologist [facility] TSH 2.420 0.270 - 4.200 mcIU/mL 09/06/2020 8:16 PM EDT [facility] [employer] [facility] Blood Venipuncture / Unknown 09/06/2020 4:04 PM EDT 09/06/2020 4:04 PM EDT Narrative [facility] [employer] [facility] - 09/06/2020 8:16 PM EDT Ingestion of smooth doses of biotin (>5 mg/day) taken within 8 hours of drawing blood sample can interfere with this immunoassay test. [employer] CHEMISTRY ORDERABLES Final Result Performing Organization Address [facility] de Phone Number [facility] [employer] [address] , [place] [address] * (ABNORMAL) HEMOGLOBIN A1C (09/06/2020 4:04 PM EDT) [facility] Hgb A1C 5.7(H) 4.2 - 5.6 % 09/06/2020 8:30 PM EDT [facility] [employer] [facility] Est. Avg Glucose 117 mg/dL 09/06/2020 8:30 PM EDT [facility] [employer] [facility] Blood Venipuncture / Unknown 09/06/2020 4:04 PM EDT 09/06/2020 4:04 PM EDT Narrative [facility] - 09/06/2020 8:30 PM EDT REFERENCE RANGE: Normal: 4.0-5.6% Pre-diabetes: 5.7-6.4% Provisional diagnosis of diabetes: >6.4% Hgb F>10% and anything which shortens red cell survival, such as hemolytic anemia, or unstable hemoglobin variants such as HbSS, HbSC, or HbCC, will lower the HbA1c value associated with a given level of glycemic control. ? [employer] CHEMISTRY ORDERABLES Final Result [facility] [address] [facility] [facility] , [place] [address] * (ABNORMAL) COMPREHENSIVE METABOLIC PANEL (09/06/2020 4:04 PM EDT) Sodium 138 136 - 145 mmol/L 09/06/2020 8:16 PM EDT [facility] Potassium 4.5 3.5 - 5.0 mmol/L 09/06/2020 8:16 PM EDT [facility] Chloride 101 98 - 107 mmol/L 09/06/2020 8:16 PM EDT [facility] Total CO2 28 22 - 29 mmol/L 09/06/2020 8:16 PM EDT [facility] Anion Gap 9 7 - 16 mmol/L 09/06/2020 8:16 PM EDT [facility] Calcium 9.3 8.6 - 10.4 mg/dL 09/06/2020 8:16 PM EDT [facility] Glucose Lvl 102(H) 74 - 100 mg/dL 09/06/2020 8:16 PM EDT [facility] BUN 14 6 - 20 mg/dL 09/06/2020 8:16 PM EDT [facility] Creatinine 0.98 0.67 - 1.30 mg/dL 09/06/2020 8:16 PM EDT [facility] Albumin 4.3 3.5 - 5.2 gm/dL 09/06/2020 8:16 PM EDT [facility] Total Protein 7.6 6.4 - 8.3 gm/dL 09/06/2020 8:16 PM EDT [facility] Bili Total 0.4 0.1 - 1.4 mg/dL 09/06/2020 8:16 PM EDT [facility] ALT 57(H) <=41 U/L 09/06/2020 8:16 PM EDT [facility] AST 30 <=40 U/L 09/06/2020 8:16 PM EDT [facility] Alk Phos 50 40 - 129 U/L 09/06/2020 8:16 PM EDT [facility] GFR Afr Am 102 >=60 mL/min/1.7 3 m2 09/06/2020 8:16 PM EDT [facility] GFR Non Afr Am 88 >=60 mL/min/1.7 3 m2 09/06/2020 8:16 PM EDT [facility] Comment: This estimated GFR was [...] in nutritional status or muscle mass. Blood Venipuncture / Unknown 09/06/2020 4:04 PM EDT 09/06/2020 4:04 PM EDT us Daniela Stringer [employer] CHEMISTRY ORDERABLES Final Result [facility] [address] [facility] , [place] [address] [facility] [address] [place] [address] * CBC WITH DIFF (09/06/2020 4:04 PM EDT) WBC 7.2 3.7 - 10.3 x10(3)/mcL 09/06/2020 7:41 PM EDT [facility] RBC 5.55 4.60 - 6.10 x10(6)/mcL 09/06/2020 7:41 PM EDT [facility] Hgb 15.9 13.7 - 17.5 g/dL 09/06/2020 7:41 PM EDT [facility] Hct 47.9 40.0 - 51.0 % 09/06/2020 7:41 PM EDT [facility] MCV 86.3 80.0 - 100.0 fL 09/06/2020 7:41 PM EDT [facility] MCH 28.6 26.0 - 34.0 pg 09/06/2020 7:41 PM EDT [facility] MCHC 33.2 30.7 - 35.5 g/dL 09/06/2020 7:41 PM EDT [facility] RDW 13.1 <=14.9 % 09/06/2020 7:41 PM EDT [facility] Platelet 215 155 - 369 x10(3)/mcL 09/06/2020 7:41 PM EDT [facility] MPV 12.1 8.8 - 12.5 fL 09/06/2020 7:41 PM EDT [facility] Neut Percent 53.8 % 09/06/2020 7:41 PM EDT [facility] Comment:Neutrophils equals s egs plus bands Imm Gran% 0.4 % 09/06/2020 7:41 PM EDT [facility] Comment:Automated count of m etamyelocytes, myelocytes and promyelocytes. Lymph Percent 28.9 % 09/06/2020 7:41 PM EDT [facility] [place] Percent 10.0 % 09/06/2020 7:41 PM EDT [facility] Eos Percent 5.9 % 09/06/2020 7:41 PM EDT [facility] Baso Percent 1.0 % 09/06/2020 7:41 PM EDT [facility] Neut # 3.9 1.6 - 6.1 x10(3)/mcL 09/06/2020 7:41 PM EDT [facility] Comment:Neutrophils equals s egs plus bands IMMGRAN# 0.0 0.0 - 0.1 x10(3)/mcL 09/06/2020 7:41 PM EDT [facility] Comment:Automated count of m etamyelocytes, myelocytes and promyelocytes. An absolute IG <0.1 is reported as 0.0. Lymph # 2.1 1.2 - 3.9 x10(3)/mcL 09/06/2020 7:41 PM EDT [facility] [place] # 0.7 0.3 - 0.9 x10(3)/mcL 09/06/2020 7:41 PM EDT [facility] Eos# 0.4 0.0 - 0.5 x10(3)/mcL 09/06/2020 7:41 PM EDT [facility] Baso # 0.1 0.0 - 0.1 x10(3)/mcL 09/06/2020 7:41 PM EDT [facility] Blood Venipuncture / Unknown 09/06/2020 4:04 PM EDT 09/06/2020 4:04 PM EDT Daniela Stringer [employer] HEMATOLOGY ORDERABLES Final Result [facility] [address] [facility] , [place] [address] documented in this encounter Visit Diagnoses Diagnosis Well adult exam- Primary Routine general medical examination at a health care facility Prediabetes Other abnormal glucose Hypothyroidism (acquired) Unspecified hypothyroidism Lipid screening Screening for lipoid disorders Obesity, Class II, BMI 35-39.9 Obesity, unspecified Screening for prostate cancer Special screening for malignant neoplasm of prostate Dietary counseling Dietary surveillance and counseling documented in this encounter Care Teams Cna Caregiver Relationship Specialty Start Date End Date Ryan Davis MD [address] [facility] [place] [address] PCP - General Family Medicine 07/23/19 documented as of this encounter
--- OUTSIDE RECORDS SUMMARY | 2024-10-02 22:01 | XMS_ITS | Encounter Summary ---
Author Organization [place] [address] Care Team Providers Care Basting Marker Name Role Phone Ryan Davis MD Primary Care Provider [phone] Reason for Visit * Reason Comments Labs Only Encounter Details Date Type Department Care Team (Latest Contact Info) Description 01/21/2020 3:00 PM EDT Clinical Support [facility] [place] [address] [place] [address] Angelic Burgos CCMA Hypothyroidism (acquired) Social History Tobacco Use Types [...] documented in this encounter Progress Notes * Angelic Brugos CCMA - 01/21/2020 3:00 PM EDT Venipuncture in the right antecubital [...] Procedure Name Priority Date/Time Associated Diagnosis Comments T3 FREE Routine 01/21/2020 3:00 PM EDT Hypothyroidism (acquired) THYROID STIMULATING HORMONE Routine 01/21/2020 3:00 PM EDT Hypothyroidism (acquired) T4, FREE (THYROXINE) Routine 01/21/2020 3:00 PM EDT Hypothyroidism (acquired) documented in this encounter Results * T3 FREE (01/21/2020 3:00 PM EDT) T3 Free 3.35 2.00 - 4.40 pg/mL 01/21/2020 8:07 PM EDT [facility] [employer] [facility] Blood VENOUS BLOOD / Unknown Venipuncture / Unknown 01/21/2020 3:00 PM EDT 01/21/2020 3:00 PM EDT Narrative [facility] - 01/21/2020 8:07 PM EDT Ingestion of smooth doses of biotin (>5 mg/day) taken within 8 hours of drawing blood sample can interfere with this immunoassay test. Ryan Davis MD CHEMISTRY ORDERABLES Final Res ult Performing Organization Address [facility] de Phone Number [facility] [employer] [address] , [place] [address] * T4, FREE (THYROXINE) (01/21/2020 3:00 PM EDT) Free T4 1.03 0.80 - 2.00 ng/dL 01/21/2020 8:07 PM EDT [facility] [employer] Blood VENOUS BLOOD / Unknown Venipuncture / Unknown 01/21/2020 3:00 PM EDT 01/21/2020 3:00 PM EDT Narrative [employer] - 01/21/2020 8:07 PM EDT Ingestion of smooth doses of biotin (>5 mg/day) taken within 8 hours of drawing blood sample can interfere with this immunoassay test. Ryan Davis MD CHEMISTRY ORDERABLES Final Res ult Performing Organization Address [facility] Phone Number [facility] , [place] [address] * THYROID STIMULATING HORMONE (01/21/2020 3:00 PM EDT) TSH 2.100 0.270 - 4.200 mcIU/mL 01/21/2020 8:07 PM EDT [facility] Blood VENOUS BLOOD / Unknown Venipuncture / Unknown 01/21/2020 3:00 PM EDT 01/21/2020 3:00 PM EDT Narrative [employer] - 01/21/2020 8:07 PM EDT Ingestion of smooth doses of biotin (>5 mg/day) taken within 8 hours of drawing blood sample can interfere with this immunoassay test. us Ryan Davis MD CHEMISTRY ORDERABLES Final Res ult [facility] [employer] [address] [place] [address] , [place] [address] documented in this encounter Visit Diagnoses Diagnosis Hypothyroidism (acquired) Unspecified hypothyroidism documented in this encounter Care Teams Basting Marker Relationship Specialty Start Date End Date Ryan Davis MD [address] [place] [address] [place] [address] PCP - General Family Medicine 07/23/19 documented as of this encounter
--- OUTSIDE RECORDS SUMMARY | 2024-10-02 22:01 | XMS_ITS | Encounter Summary ---
Author Organization [place] [address] Care Team Providers Care Sample Selector Name Role Phone Tristan Marion MD Primary Care Provider [phone] Reason for Visit * Reason Comments Wound Infection Laceration from meta l 1 wk ago, swelling, redness, and heat. Encounter Details Date Type Department Care Team (Late st Contact Info) Description 06/18/2013 4:30 PM EDT Office Visit [facility] [place] [facility] [place] [address] [place]istan [place] [address] [place] [address] Cellulitis (Primary Dx) Social History Tobacco Use Types [...] Sign Reading Time Taken Comments Blood Pressure 152/88 06/18/2013 5:07 PM EDT Pulse 87 06/18/2013 5:07 PM EDT Temperature 36.7 ??C (98.1 ??F) 06/18/2013 5:07 PM ED T Respiratory Rate - - Oxygen Saturation 96% 06/18/2013 5:07 PM EDT Inhaled Oxygen Concentration - - Weight 111.1 kg (245 lb) 06/18/2013 5:07 PM EDT Height 179.7 cm (5' 10.75 ) 06/18/2013 5:07 PM E DT Body Mass Index 34.41 06/18/2013 5:07 PM EDT documented in this encounter Ordered Prescriptions Prescription Sig Dispense Quantity Refills Last Filled Start Date End Date sulfamethoxazole-tr imethoprim (BACTRIM DS) 800-160 mg per tabletIndications:C olena Take 1 Tab by mouth every 12 hours for 10 days. 20 Tab 0 06/18/2013 06/28/2013 documented in this encounter Progress Notes * Tristan Marion MD - 06/18/2013 5:23 PM EDT IRVING Ge is a 43 y.o. male who presents with Chief Complaint Patient presents with ??? Wound Infection Laceration from metal 1 wk ago, swelling, redness, and heat. Pain. BP Readings from Last 3 Encounters: 06/18/13 152/88 04/30/13 128/84 02/12/13 124/96 Wt Readings from Last 3 Encounters: 06/18/13 245 lb (111.131 kg) 02/12/13 241 lb 9.6 oz (109.589 kg) Body mass index is 34.41 kg/(m^2). No past medical history on file. There is no problem list on file for this patient. Past Surgical History Procedure Laterality Date ??? 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 Review of patient's allergies indicates no known allergies. Family History Problem Relation Age of Onset ??? Diabetes Mother Diet controlled DM 2 ??? Colon Cancer Neg Hx ??? Prostate Cancer Neg Hx History Substance Use Topics ??? Smoking status: Never Smoker ??? Smokeless tobacco: Never Used ??? Alcohol Use: No REVIEW OF SYSTEMS: denies; fever, chills, nausea, emesis, diarrhea, chest pain, sob, dark or bloodystools, urinary symptoms, no skin lesions, neuro symptoms. OBJECTIVE: Vitals BP: 152/88 mmHg, Temp: 98.1 ??F (36.7 ??C), Temp Source: Oral, Heart Rate: 87 , SpO2: 96 %, Height: 5' 10.75 (179.7 cm), Weight - Scale: 245 lb (111.131 kg) NAD PERRL EOMI CTA B RR no murmur ABD soft nontender non distended No C/C/D Non focal neuro exam Right hand with 1.5 cm closed laceration over 1st MCP. Local swelling warmth and redness. No results found for this visit on 06/18/13. ASSESSMENT/PLAN: Azalia was seen today for wound infection. Diagnoses and associated orders for this visit: Cellulitis - sulfamethoxazole-trimethoprim (BACTRIM DS) 800-160 mg per tablet; Take 1 Tab by mouth every 12 hours for 10 days. Other Orders - Cancel: Tdap vaccine greater than or equal to 11yo IM (Adacel) documented in this encounter Plan of Treatment Not on file documented as of this encounter Visit Diagnoses Diagnosis Cellulitis- Primary Cellulitis and abscess of unspecified site documented in this encounter Care Teams Sample Selector Relationship Specialty Start Date End Date Tristan Marion MD [address] [place], [place] [address] PCP - General Family Medicine 02/12/13 05/31/19 documented as of this encounter
--- OUTSIDE RECORDS SUMMARY | 2024-10-02 22:01 | XMS_ITS | Encounter Summary ---
Author Organization [place] [address] Care Team Providers Care Supervisor Salvage Name Role Phone Ryan Davis MD Primary Care Provider [phone] Reason for Visit * Reason Onset Date Comments Results 06/07/2020 returning call Encounter Details Date Type Department Care Team (Late st Contact Info) Description 06/07/2020 Telephone SEP Karin [address] [place] [address] Ryan Davis MD [address] [place] [address] [place] [address] Results (returning call ) Social History Tobacco Use Types Packs/Day [...] have Coronavirus / COVID-19? No / Unsure 06/05/2020 9:59 AM EDT documented as of this encounter [...] Telephone Encounter - Jaylene Jonas CMA - 06/07/2020 3:55 PM EDT Pt informed of lab work results * Telephone Encounter - Kathya Ram - 06/07/2020 3:22 PM EDT Patient would like a return call with results. * Telephone Encounter - Jaylene Jonas CMA - 06/07/2020 2:31 PM EDT No answer and no VM * Telephone Encounter - Kylie Pabon - 06/07/2020 11:30 AM EDT Patient Returning Call Reason for call: Brett Result Notes for HEMOGLOBIN A1C Notes recorded by Brett Ray MA on 06/06/2020 at 4:48 PM EDT Laboratory results received, patient notified by: Left message with vm to return call to the office.. documented in this encounter Plan of Treatment [...] on filedocumented in this encounter Care Teams Supervisor Salvage Relationship Specialty Start Date End Date Ryan Davis MD [address] [facility] [place] [address] PCP - General Family Medicine 07/23/19 documented as of this encounter
--- OUTSIDE RECORDS SUMMARY | 2024-10-02 22:01 | XMS_ITS | Encounter Summary ---
Author Organization [place] [address] Care Team Providers Care Hand Tube Bender Name Role Phone Ryan Davis MD Primary Care Provider [phone] Reason for Visit * Reason Comments Medication Refill needs levothyroxine refilled, pt is fasting Encounter Details Date Type Department Care Team (Latest Contact Info) Description 06/05/2020 10:40 AM EDT Office Visit [facility] [place] [facility] [address] Ryan Davis MD [address] [place] [address] [place] [address] Hypothyroidism (acquired) (Primary Dx); Prediabetes Social History Tobacco Use Types Packs/Day [...] Reading Time Taken Comments Blood Pressure 134/80 06/05/2020 10:46 AM EDT Pulse 71 06/05/2020 10:46 AM EDT Temperature 36.6 ??C (97.9 ??F) 06/05/2020 1 0:46 AM EDT Respiratory Rate 18 06/05/2020 10:4 6 AM EDT Oxygen Saturation 96% 06/05/2020 10: 46 AM EDT Inhaled Oxygen Concentration - - Weight 119.5 kg (263 lb 6.4 oz) 020 10:46 AM EDT Height 177.8 cm (5' 10 ) 06/05/2020 10: 46 AM EDT Body Mass Index 37.79 06/05/2020 10:46 AM EDT documented in this encounter Functional [...] Progress Notes * Ryan Davis MD - 06/05/2020 10:40 AM EDT Assessment Diagnoses and all orders for this visit: Hypothyroidism (acquired) - TSH REFLEX; Future We will follow-up his TSH and adjust his regimen if needed. He does complain of some mild hypothyroid symptoms of mild weight gain and generalized fatigue. Prediabetes - HEMOGLOBIN A1C; Future Recheck his A1c and if his A1c has increased to 6.0% or higher we will start a once daily dose of metformin to help reduce his risk of progression to diabetes. Progress Note: Vitals: 06/05/20 1046 BP: 134/80 Pulse: 71 Resp: 18 Temp: 97.9 ??F (36.6 ??C) TempSrc: Temporal SpO2: 96% Weight: 263 lb 6.4 oz (119.5 kg) Height: 5' 10 (1.778 m) SUBJECTIVE: Chief Complaint Patient presents with ??? Medication Refill needs levothyroxine refilled, pt is fasting HPI: Thyroid Disease: Patient following up for hypothyroidism. he is compliant with current treatment. Active symptoms reported today are change in energy level, weight changes. He complains of some weight fluctuations and mild overall weight gain. He is only up 2 pounds since his last visit. He also states that he feels little bit more tired and rundown. Prediabetes: His screening A1c last fall was in the prediabetic range at 5.9%. He has been trying to stay physically active and watch what he eats. He is due for recheck of his A1c today. He denies any polyuria or polydipsia. Review of Systems Constitutional: Positive for activity change and fatigue. Negative for chills, diaphoresis, fever and unexpected weight change. HENT: Negative for trouble swallowing and voice change. Eyes: Negative for visual disturbance. Respiratory: Negative for cough and shortness of breath. Cardiovascular: Negative for chest pain and palpitations. Gastrointestinal: Negative for diarrhea, nausea and vomiting. Musculoskeletal: Negative for gait problem and myalgias. Skin: Negative for rash. Neurological: Negative for dizziness and headaches. Psychiatric/Behavioral: Negative for decreased concentration, dysphoric mood, sleep disturbance andsuicidal ideas. The patient is not nervous/anxious. Social History Socioeconomic History ??? Marital status: Spouse name: None ??? Number of children: None ??? Years of education: None ??? Highest education level: None Tobacco Use ??? Smoking status: Former Smoker Packs/day: 0.00 ??? Smokeless tobacco: Never Used Substance and Sexual Activity ??? Alcohol use: Yes ??? Drug use: Never ??? Sexual activity: Yes Partners: Female OBJECTIVE: Physical Exam Vitals signs reviewed. Constitutional: General: He is not in acute distress. Appearance: He is well-developed. He is not diaphoretic. HENT: Head: Normocephalic and atraumatic. Eyes: Pupils: Pupils are equal, round, and reactive to light. Cardiovascular: Rate and Rhythm: Normal rate and regular rhythm. Pulmonary: Effort: Pulmonary effort is normal. Breath sounds: Normal breath sounds. No wheezing. Skin: Findings: No rash. Neurological: Mental Status: He is alert and oriented to person, place, and time. Psychiatric: Behavior: Behavior normal. Thought Content: Thought content normal. Judgment: Judgment normal. * Astrid Caldwell - 06/05/2020 10:40 AM EDT Venipuncture in the right antecubital [...] Date/Time Associated Diagnosis Comments TSH REFLEX Routine 06/05/2020 11:14 AM EDT Hypothyroidism (acquired) HEMOGLOBIN A1C Routine 06/05/2020 11:14 AM EDT Prediabetes documented in this encounter Results * (ABNORMAL) HEMOGLOBIN A1C (06/05/2020 11:14 AM EDT) Hgb A1C 5.8(H) 4.2 - 5.6 % 06/05/2020 4:27 PM EDT [employer] Est. Avg Glucose 120 mg/dL 06/05/2020 4:27 PM EDT [employer] Blood VENOUS BLOOD / Unknown Venipuncture / Unknown 06/05/2020 11:14 AM EDT 06/05/2020 11:40 AM EDT Narrative [facility] - 06/05/2020 4:27 PM EDT REFERENCE RANGE: Normal: 4.0-5.6% Pre-diabetes: 5.7-6.4% Provisional diagnosis of diabetes: >6.4% Hgb F>10% and anything which shortens red cell survival, such as hemolytic anemia, or unstable hemoglobin variants such as HbSS, HbSC, or HbCC, will lower the HbA1c value associated with a given level of glycemic control. ? Ryan Davis MD CHEMISTRY ORDERABLES Final Res ult Performing Organization Address [facility] de Phone Number [facility] [employer] [address] , [place] [address] * TSH REFLEX (06/05/2020 11:14 AM EDT) TSH Reflex 2.380 0.270 - 4.200 mcIU/mL 06/05/2020 5:00 PM EDT [facility] [employer] Blood Venipuncture / Unknown 06/05/2020 11:14 AM EDT 06/05/2020 11:40 AM EDT Narrative [facility] [employer] - 06/05/2020 5:00 PM EDT Ingestion of smooth doses of biotin (>5 mg/day) taken within 8 hours of drawing blood sample can interfere with this immunoassay test. Ryan Davis MD CHEMISTRY ORDERABLES Final Res ult Performing Organization Address [facility] de Phone Number [facility] [employer] [address] [place] [address] [address] [place] [address] documented in this encounter Visit Diagnoses Diagnosis Hypothyroidism (acquired)- Primary Unspecified hypothyroidism Prediabetes Other abnormal glucose documented in this encounter Discontinued Medications Medication Sig Discontinue Reason Start Date End Da te pantoprazole (PROTONIX) 40 mg Oral Tablet, Delayed Release (E.C.)Indications:Chron ic cough,Gastroesophageal reflux disease, esophagitis presence not specified Take 1 Tab by mouth daily. DELETE-Therapy completed 11/26/2019 06/05/2020 documented as of this encounter Care Teams Hand Tube Bender Relationship Specialty Start Date End Date Ryan Davis MD [address] [address] [place], [place] [address] PCP - General Family Medicine 07/23/19 documented as of this encounter
--- OUTSIDE RECORDS SUMMARY | 2024-10-02 22:01 | XMS_ITS | Encounter Summary ---
Author Organization [place] [address] Care Team Providers Care Branner Machine Tender Name Role Phone Ryan Davis MD Primary Care Provider [phone] Encounter Details Date Type Department Care Team (Latest Contact Info) Description 06/05/2020 Travel Social History Tobacco Use Types Packs/Day [...] on filedocumented in this encounter Care Teams Branner Machine Tender Relationship Specialty Start Date End Date Ryan Davis MD [address] [place] [address] [place] [address] PCP - General Family Medicine 07/23/19 documented as of this encounter
--- OUTSIDE RECORDS SUMMARY | 2024-10-02 22:01 | XMS_ITS | Encounter Summary ---
Author Organization [facility] [place] [address] Care Team Providers Care Service Operator Name Role Phone Ryan Davis MD Primary Care Provider [phone] Encounter Details Date Type Department Care Team (Latest Contact Info) Description 09/04/2020 Travel Social History Tobacco Use Types Packs/Day [...] on filedocumented in this encounter Care Teams Service Operator Relationship Specialty Start Date End Date Ryan Davis MD [address] [place] [address] [place] [address] PCP - General Family Medicine 07/23/19 documented as of this encounter
--- OUTSIDE RECORDS SUMMARY | 2024-10-02 22:01 | XMS_ITS | Encounter Summary ---
Author Organization [place] [address] Care Team Providers Care Rat Culturist Name Role Phone Ryan Davis MD Primary Care Provider [phone] Reason for Visit * Reason Comments Medication Refill Encounter Details Date Type Department Care Team (Late st Contact Info) Description 09/07/2020 Refill SEP Karin [address] [place] [address] Ryan Davis MD [address] [place] [address] [place] [address] Medication Refill Social History Tobacco Use Types [...] BY MOUTH ONCE DAILY 30 Tab 2 09/07/2020 09/14/2021 documented in this encounter Plan of Treatment [...] (acquired) Take 1 Tab by mouth daily. 09/07/2020 09/07/2020 documented as of this encounter Care Teams Rat Culturist Relationship Specialty Start Date End Date Ryan Davis MD [address] [place] [address] [place] [address] PCP - General Family Medicine 07/23/19 documented as of this encounter
--- OUTSIDE RECORDS SUMMARY | 2024-10-02 22:01 | XMS_ITS | Encounter Summary ---
Author Organization [place] [address] Care Team Providers Care Rubbish Collector Name Role Phone Ryan Davis MD Primary Care Provider [phone] Reason for Visit * Reason Comments Labs Only Encounter Details Date Type Department Care Team (Late st Contact Info) Description 09/12/2020 10:20 AM EST Clinical Support J[facility] [place] [address] [place] [address] [facility] Social History Tobacco Use Types Packs/Day Years [...] in this encounter Progress Notes * Angelic Burgos CCMA - 09/12/2020 10:20 AM EST Venipuncture in the right antecubital [...] Name Priority Date/Time Associated Diagnosis Comments LIPID SCREEN Routine 09/12/2020 10:18 AM EST Lipid screening documented in this encounter Results * (ABNORMAL) LIPID SCREEN (09/12/2020 10:18 AM EST) [facility] Cholesterol 173 <200 mg/dL 09/12/2020 4:05 PM EST [facility] Comment: < 200 ?Desirable 200 - 239 ? Borderline High >= 240 ?High Triglyceride 102 <150 mg/dL 09/12/2020 4:05 PM EST [facility] Comment: < 150 ? Normal 150 - 199 ?Borderline High 200 - 499 ?High ??>= 500 ? Very High HDL 44 >=40 mg/dL 09/12/2020 4:05 PM EST [facility] [employer] Comment: ??> 60 ?Optimal 40 - 60 ?Acceptable ?? < 40 ?Low LDL Calculated 109(H) <100 mg/dL 09/12/2020 4:05 PM EST [facility] [employer] Comment: < 100 ?Optimal 100 - 129 ? Near or above optimal 130 - 159 ? Borderline High 160 - 189 ? High >= 190 ?Very High Non-HDL-C Calculated 129 <=129 mg/dL 09/12/2020 4:05 PM EST [facility] Comment: <130 ?Desirable 130-159 Above Desirable 160-189 Borderline High 190-219 High >= 220 ??Very High Fasting Specimen? Yes None 020 4:05 PM EST [facility] Blood VENOUS BLOOD / Unknown Venipuncture / Unknown 09/12/2020 10:18 AM EST 09/12/2020 10:18 AM EST Daniela Stringer ELECTROPHYSIOLOGY SCIENTIST CHEMISTRY ORDERABLES Final Result Performing Organization Address City/State/[facility] Co de Phone Number [facility] [address] [facility] , [place] [address] documented in this encounter Visit Diagnoses Diagnosis Lipid screening Screening for lipoid disorders documented in this encounter Care Teams Rubbish Collector Relationship Specialty Start Date End Date Ryan Davis MD [address] [place] [address] [place] [address] PCP - General Family Medicine 07/23/19 documented as of this encounter
--- OUTSIDE RECORDS SUMMARY | 2024-10-02 22:01 | XMS_ITS | Encounter Summary ---
Author Organization [place] [address] Care Team Providers Care Pecan Gatherer Name Role Phone Tristan Marion MD Primary Care Provider [phone] Encounter Details Date Type Department Care Team (Latest Contact Info) Description 02/12/2013 4:21 PM EDT - 02/12/2013 11:59 PM EDT Hospital Encounter [facility] NICOLE PROCESSING [facility] [place] [id number] HTN (hypertension) Discharge Disposition: Home or Self Care Social History Tobacco Use Types Packs/Day Years [...] on file documented as of this encounter Medications at Time of Discharge lisinopril-hydroc hlorothiazide (PRINZIDE;ZESTORE TIC) 20-12.5 mg per tabletIndications :HTN (hypertension) Take 1 Tab by mouth daily for 90 days. 30 Tab 6 02/12/2013 05/13/2013 documented as of this encounter Discharge Disposition Disposition Code Departure Means Destination Home or Self Care documented in this encounter Progress Notes * Unknown, Unknown - 05/19/2013 12:00 AM EDT documented in this encounter Miscellaneous Notes * Miscellaneous - Unknown, Unknown - 02/12/2013 4:21 PM EDT documented in this encounter Plan of Treatment Not on file documented as of this encounter Procedures Procedure Name Priority Date/Time Associated Diagnosis Comments LDL, CALCULATED Routine 02/12/2013 11:55 AM EDT LIPID PANEL REFLEX Routine 02/12/2013 11 :55 AM EDT HTN (hypertension) THYROID STIMULATING HORMONE Routine 02/12/2013 11:55 AM EDT HTN (hypertension) BASIC METABOLIC PANEL Routine 02/12/2013 11:55 AM EDT HTN (hypertension) documented in this encounter Results * (ABNORMAL) LDL, CALCULATED (02/12/2013 11:55 AM EDT) [facility] LDL Calculated 148(H) <=100 mg/dL [facility] Comment: ??< 100 ?Optimal 100 - 129 ? Near or above optimal 130 - 159 ? Borderline High 160 - 189 ? High >= 190 ?Very High Blood specimen (specimen) 02/12/2013 11:55 AM EDT 02/12/2013 4:56 PM EDT us Tristan Marion MD CHEMISTRY ORDERABLES Final Result [facility] [address] [place] [address] * THYROID STIMULATING HORMONE (02/12/2013 11:55 AM EDT) [facility] TSH 3.450 0.300 - 5.000 mcIU/mL [facility] Blood specimen (specimen) UPPER LIMB STRUCTURE / Unknown 02/12/2013 11:55 AM EDT 02/12/2013 4:56 PM EDT us Tristan Marion MD CHEMISTRY ORDERABLES Final Result Performing Organization Address [facility] de Phone Number [facility] [address] [place] [address] * (ABNORMAL) LIPID PANEL REFLEX (02/12/2013 11:55 AM EDT) Cholesterol 225(H) <=200 mg/dL [facility] Comment: < 200 ?Desirable 200 - 239 ? Borderline High >= 240 ?High Triglyceride 122 <=150 mg/dL [facility] Comment: < 150 ? Normal 150 - 199 ?Borderline High 200 - 499 ?High ??>= 500 ? Very High HDL 53 >=40 mg/dL [facility] Comment: ?? > 60 ?Optimal 40 - 60 ?Acceptable ?? < 40 ?Low Blood specimen (specimen) UPPER LIMB STRUCTURE / Unknown 02/12/2013 11:55 AM EDT 02/12/2013 4:56 PM EDT us Tristan Marion MD CHEMISTRY ORDERABLES Final Result Performing Organization Address [facility] de Phone Number [facility] [address] [place] [address] * (ABNORMAL) BASIC METABOLIC PANEL (02/12/2013 11:55 AM EDT) Sodium 139 135 - 143 mmol/L [facility] Potassium 5.2(H) 3.5 - 5.0 mmol/L [facility] Chloride 99 98 - 108 mmol/L [facility] Total CO2 29 22 - 31 mmol/L [facility] Anion Gap 11 7 - 16 mmol/L [facility] Calcium 10.0 8.6 - 10.3 mg/dL [facility] Glucose Lvl 99 70 - 100 mg/dL [facility] BUN 13 8 - 23 mg/dL [facility] Creatinine 0.9 0.7 - 1.3 mg/dL [facility] GFR Afr Am >60 [facility] Comment: GFR is estimated using creatinine, age, gender, and race. ??GFR has been validated for patients between 18 and 70 years of age. GFR has not been validated for women, patients with serious comorbid conditions, or persons with extremes of body size, muscle mass, or nutritional status. ??For additional information: ??www.kidney.org. Chronic kidney disease stage ? GFR (ml/min/1.73 square meters) ? Stage 3 ? 30 - 59 ? Stage 4 ? 15 - 29 ? Stage 5 ? 14 or less GFR Non Afr Am >60 [facility] Blood specimen (specimen) UPPER LIMB STRUCTURE / Unknown 02/12/2013 11:55 AM EDT 02/12/2013 4:56 PM EDT us Tristan Marion MD CHEMISTRY ORDERABLES Final Result [facility] [address] [place] [address] documented in this encounter Visit Diagnoses Diagnosis HTN (hypertension) Unspecified essential hypertension documented in this encounter Care Teams Pecan Gatherer Relationship Specialty Start Date End Date Tristan Marion MD [address] [place], [place] [address] PCP - General Family Medicine 02/12/13 05/31/19 documented as of this encounter
--- OUTSIDE RECORDS SUMMARY | 2024-10-02 22:02 | XMS_ITS | Encounter Summary ---
Author Organization [place] [address] Care Team Providers Care Trapper Bird Name Role Phone Tristan Marion MD Primary Care Provider [phone] Reason for Visit * Reason Comments Elevated Blood Pressure W/o Dx Of Htn El evated BP at Wellness check 02/10/13 at 5:35am with employer. 146/124, 146/122, 146/124. Denies any sx. Lab Orders FBW Encounter Details Date Type Department Care Team (Late st Contact Info) Description 02/12/2013 10:00 AM EDT Office Visit [facility] [address] [place] [address] Tristan Marion MD [address] [place] [address] HTN (hypertension) (Primary Dx) Social History Tobacco Use Types [...] Sign Reading Time Taken Comments Blood Pressure 124/96 02/12/2013 10:20 AM EDT Pulse 67 02/12/2013 10:20 AM EDT Temperature 36.6 ??C (97.8 ??F) 02/12/2013 1 0:20 AM EDT Respiratory Rate - - Oxygen Saturation 96% 02/12/2013 10: 20 AM EDT Inhaled Oxygen Concentration - - Weight 109.6 kg (241 lb 9.6 oz) 013 10:20 AM EDT Height 179.7 cm (5' 10.75 ) 02/12/2013 10:20 AM EDT Body Mass Index 33.93 02/12/2013 10:20 AM EDT documented in this encounter Ordered Prescriptions Prescription Sig Dispense Quantity Refills Last Filled Start Date End Date lisinopril-hydrochl orothiazide (PRINZIDE;ZESTORETI C) 20-12.5 mg per tabletIndications:H TN (hypertension) Take 1 Tab by mouth daily for 90 days. 30 Tab 6 02/12/2013 05/13/2013 documented in this encounter Progress Notes * Chuyita Setwart - 02/12/2013 11:54 AM EDT Subjective: Patient ID: Azalia Ge is a 42 y.o. male. HPI Patients past medical, family and social histories were reviewed and updated. There were no changesexcept as noted. Review of Systems Objective: Filed Vitals: 02/12/13 1020 BP: 124/96 Pulse: 67 Temp: 97.8 ??F (36.6 ??C) TempSrc: Oral Height: 5' 10.75 (1.797 m) Weight: 241 lb 9.6 oz (109.589 kg) SpO2: 96% Body mass index is 33.94 kg/(m^2). Physical Exam Assessment and Plan: Azalia was seen today for elevated blood pressure w/o dx of htn and lab orders. Diagnoses and associated orders for this visit: HTN (hypertension) - lisinopril-hydrochlorothiazide (PRINZIDE;ZESTORETIC) 20-12.5 mg per tablet; Take 1 Tab by mouth daily for 90 days. - Basic Metabolic Panel - Clinic Collect; Future - Lipid Panel Reflex - Clinic Collect; Future - Thyroid Stimulating Hormone - Clinic Collect; Future - Venipuncture Other Orders - Tdap vaccine greater than or equal to 11yo IM (Adacel) Venipuncture in the right antecubital vein with 21 gauge needle, length 1 1/2 inch. * Tristan Marion MD - 02/12/2013 10:36 AM EDT IRVING Ge is a 42 y.o. male who presents with Chief Complaint Patient presents with ??? Elevated Blood Pressure W/o Dx Of Htn Elevated BP at Wellness check 02/10/13 at 5:35am with employer. 146/124, 146/122, 146/124. Denies anysx. ??? Lab Orders FBW HTN: Taking meds. Well controlled. Denies chest pain and SOB, swelling, dizziness or orthostatics. BP Readings from Last 3 Encounters: 02/12/13 124/96 Wt Readings from Last 3 Encounters: 02/12/13 241 lb 9.6 oz (109.589 kg) Body mass index is 33.94 kg/(m^2). No past medical history on file. There is no problem list on file for this patient. Past Surgical History Procedure Laterality Date ??? Malignant skin lesion excision 2010 L cheek Prior to Admission medications Medication Sig Start Date End Date Taking? Authorizing Provider lisinopril-hydrochlorothiazide (PRINZIDE;ZESTORETIC) 20-12.5 mg per tablet Take 1 Tab by mouth daily for 90 days. 02/12/13 05/13/13 Tristan Marion MD Review of patient's allergies indicates no known [...] pain, sob, dark or bloodystools, urinary symptoms, neuro symptoms. OBJECTIVE: Vitals BP: 124/96 mmHg, Temp: 97.8 ??F (36.6 ??C), Temp Source: Oral, Heart Rate: 67 , SpO2: 96 %, Height: 5' 10.75 (179.7 cm), Weight - Scale: 241 lb 9.6 oz (109.589 kg) NAD PERRL EOMI CTA B RR no murmur ABD soft nonteder nodistended No C/C/D Non focal neuro exam No results found for this visit on 02/12/13. ASSESSMENT/PLAN: Azalia was seen today for elevated blood pressure w/o dx of htn and lab orders. Diagnoses and associated orders for this visit: HTN (hypertension) - Basic Metabolic Panel - Clinic Collect; Future - Lipid Panel Reflex - Clinic Collect; Future - Thyroid Stimulating Hormone - Clinic Collect; Future - Venipuncture Other Orders - Tdap vaccine greater than or equal to 11yo IM (Adacel) - lisinopril-hydrochlorothiazide (PRINZIDE;ZESTORETIC) 20-12.5 mg per tablet; Take 1 Tab by mouth daily for 90 days. documented in this encounter Miscellaneous Notes * Patient Instructions - Rosetta Madera MA - 02/12/2013 10:23 AM EDT Images from the original note were not included. Thank you for enrolling in [employer]. Please follow the instructions below to securely access your online medical record. [employer] allows you to send messages to your doctor, view your test results, renew your prescriptions, request appointments and more. How Do I Sign Up? 1. In your Internet browser, navigate to [email or web address] and click on the [employer] link. 2. Click on the Sign Up Now link in the Sign In box. You will see the New Member Sign Up page. 3. Enter your [employer] Access Code exactly as it appears below. You will not need to use this code after you???ve completed the sign-up process. This activation code will 60 days after the dateat the top of this page at which time you must request a new code from your doctors office. [employer] Access Code: [email or web address] Expires: 04/13/2013 10:23 AM 4. Enter your Social Security Number ([id number]) and Date of (mm/dd/yyyy) as indicated and click Submit. You will be taken to the next sign- up page. 5. Create a [employer] ID. This will be your [employer] login ID and cannot be changed, so think of one that is secure and easy to remember. 6. Create a [employer] password. You can change your password at any time. 7. Enter your Password Reset Question and Answer. This can be used at a later time if you forget your password. 8. Enter your e-mail address. You will receive e-mail notification when new information is available in [employer]. 9. Click Sign Up. You can now view your medical record. Additional Information Additional Information If you have questions, call your doctors office to talk to a [employer] staff member. Remember, [employer] is NOT to be used for urgent needs. For medical emergencies, dial 911. 1. Count calories: Can look up on [...] be careful and watch your blood sugars. Hypertension: Nursing: Check blood pressure at each visit. (High Blood Pressure) Most people with hypertension have no symptoms. Hypertension is another name for high blood pressure. High blood pressure can be a dangerous problem. Hypertension is dangerous because you may have itand not know it. High blood pressure may mean that your heart has to work harder to pump blood. Your blood pressure is measured with 2 numbers. The first number is when your heart contracts and the second number is when your heart relaxes. The higher the numbers are the more you are at risk forproblems. Record your blood pressure today. The best blood pressure for adults is 120/80 mm Hg. Your score was recorded at least 2 times. It is important for you to give these numbers to your doctor. If you donot have a doctor, try to get follow-up at a hospital or community clinic. You may need to start high blood pressure medicine. You may also need to adjust your medicines as told by your doctor. Even mild high blood pressure increases long-term health risks. Your last blood pressure readings are: BP Readings from Last 3 Encounters: 02/12/13 124/96 One high reading does not mean you have hypertension. ?? Your caregiver will take two measurements above 140/90 mm Hg. This will be done on different days. ?? Your blood pressure should be taken when you are relaxed. It is also important for you to have been sitting for about 10 minutes before being tested. ?? Things that can increase your blood pressure are: l Injury l Illness l Stress l Caffeine l Some medicines like decongestants. salt ?? High blood pressure does not usually need emergency treatment. HOME CARE ?? Lifestyle and medicine changes may be needed. ?? Weight loss. Exercise. ?? Stop the use of salt. ?? Stop smoking. ?? If using decongestants and/or control pills, talk to your doctor. These medicines might make blood pressure higher. ?? Avoid recreational drugs. ?? Drink no more than 2 alcoholic drinks a day. ?? Take your blood pressure medicine. You will have to take it every day. If you do not get treated, there are risks including: l Heart disease. l Stroke. l Kidney failure. ?? See your doctor as told. GET HELP RIGHT AWAY IF YOU: ?? Get a very bad headache. ?? Get blurred or changing vision. ?? Feel confused. ?? Feel weak, numb or feel faint. ?? Get chest or belly (abdominal) pain. ?? Throw up. ?? Can not breathe very well. Make sure to follow up with your caregiver. This will help find if your high blood pressure needs to be treated. If you have a reading over 180 mm Hg systolic range, you need to see your caregiver right away. Thesystolic number is the first or top number in a blood pressure reading. MAKE SURE YOU: ?? Understand these instructions. See physician to check BP at least 2 times per year. Check blood work to monitor kidney function and electrolytes 2 times per year. ?? Will watch your condition. ?? Will get help right away if you are not doing well or get worse. Document Released: 04/14/2009 Document Re-Released: 01/23/2010 ExitCare?? Patient Information ??2009 [employer]. documented in this encounter Plan of Treatment Not on file documented as of this encounter Results * THYROID STIMULATING HORMONE (02/12/2013 11:55 AM EDT) TSH 3.450 0.300 - 5.000 mcIU/mL [facility] Blood specimen (specimen) UPPER LIMB STRUCTURE / Unknown 02/12/2013 11:55 AM EDT 02/12/2013 4:56 PM EDT us Tristan Marion MD CHEMISTRY ORDERABLES Final Result [facility] [address] [place] [address] * (ABNORMAL) LIPID PANEL REFLEX (02/12/2013 11:55 AM EDT) Cholesterol 225(H) <=200 mg/dL [facility] Comment: < 200 ?Desirable 200 - 239 ? Borderline High >= 240 ?High Triglyceride 122 <=150 mg/dL [facility] Comment: < 150 ? Normal 150 - 199 ?Borderline High 200 - 499 ?High ??>= 500 ? Very High HDL 53 >=40 mg/dL [facility] Comment: ?? > 60 ?Optimal 40 - 60 ?Acceptable ?? < 40 ?Low Blood specimen (specimen) UPPER LIMB STRUCTURE / Unknown 02/12/2013 11:55 AM EDT 02/12/2013 4:56 PM EDT us Tristan Marion MD CHEMISTRY ORDERABLES Final Result [facility] [address] [place] [address] * (ABNORMAL) BASIC METABOLIC PANEL (02/12/2013 11:55 AM EDT) Pathologist [facility] Sodium 139 135 - 143 mmol/L [facility] Potassium 5.2(H) 3.5 - 5.0 mmol/L [facility] Chloride 99 98 - 108 mmol/L [facility] Total CO2 29 22 - 31 mmol/L [facility] Anion Gap 11 7 - 16 mmol/L [facility] Calcium 10.0 8.6 - 10.3 mg/dL [facility] Glucose Lvl 99 70 - 100 mg/dL [facility] BUN 13 8 - 23 mg/dL [facility] Creatinine 0.9 0.7 - 1.3 mg/dL [facility] GFR Afr Am >60 [facility] Comment: GFR is estimated using creatinine, [...] or less GFR Non Afr Am >60 [facility] Blood specimen (specimen) UPPER LIMB STRUCTURE / Unknown 02/12/2013 11:55 AM EDT 02/12/2013 4:56 PM EDT us Tristan Marion MD CHEMISTRY ORDERABLES Final Result [facility] [address] [place] [address] documented in this encounter Visit Diagnoses Diagnosis HTN (hypertension)- Primary Unspecified essential hypertension documented in this encounter Orders Immunization/Injection Count Last Ordered Date First Ordered Date TDAP VACCINE =>7YO IM 1 02/12/2013 Charge Count Last Ordered Date First Orde red Date MT COLLECTION VENOUS BLOOD,VENIPUNCTURE 1 0 02/12/2013 documented in this encounter Care Teams Trapper Bird Relationship Specialty Start Date End Date Tristan [place] [address] [place] [address] PCP - General Family Medicine 02/12/13 05/31/19 documented as of this encounter
--- OUTSIDE RECORDS SUMMARY | 2024-10-02 22:02 | XMS_ITS | Encounter Summary ---
Author Organization [place] [address] Care Team Providers Care Life Science Teacher Name Role Phone Unavailable Primary Care Provider Unavailabl e Encounter Details Date Type Department Care Team (Late st Contact Info) Description 04/02/2010 11:30 AM EDT - 04/02/2010 3:50 PM EDT Hospital Encounter [facility] Tahmina Celis MD [address] [place] [id number] Social History Tobacco Use Types Packs/Day Years Used Date Smoking Tobacco: Never Assessed Sex and Gender Information Value Date Recorded Sex Assigned at Not on file Legal Sex Male 9:34 PM EDT Gender Identity Not on file Sexual Orientation Not on file documented as of this encounter Progress Notes * Unknown, 09/01/2010 11:04 PM EDT * Unknown, 09/01/2010 11:04 PM EDT * Unknown, 09/01/2010 12:33 PM EDT * Unknown, 09/01/2010 12:33 PM EDT * Unknown, 09/01/2010 12:33 PM EDT documented in this encounter H&P Notes * Unknown, - 05/29/2010 1:36 PM EDT documented in this encounter Procedure Notes * Unknown, 09/01/2010 12:33 PM EDT * Unknown, 09/01/2010 12:33 PM EDT * Unknown, 09/01/2010 12:33 PM EDTAssociated Order(s): SCANNED PRE/POST PROCEDURES * Unknown, 09/01/2010 12:33 PM EDTAssociated Order(s): SCANNED ANESTHESIA FORMS * Unknown, 05/29/2010 1:19 PM EDTAssociated Order(s): SCANNED OR REPORT documented in this encounter Nursing Notes * Unknown, 09/01/2010 12:33 PM EDT * Unknown, 09/01/2010 12:33 PM EDT * Unknown, 08/21/2010 8:28 PM EDT documented in this encounter Plan of Treatment Not on file documented as of this encounter Procedures Procedure Name Priority Date/Time Associated Diagnosis Comments SCANNED PRE/POST PROCEDURES 09/01/2010 12:00 AM EDT SCANNED ANESTHESIA FORMS 09/01/2010 12:00 AM EDT SCANNED OR REPORT 05/29/2010 12: 00 AM EDT documented in this encounter Results * SCANNED ANESTHESIA FORMS (09/01/2010 12:00 AM EDT) Narrative 09/01/2010 12:34 PM EDT Ordered by an unspecified provider. Transcriptions Unknown, 09/01/2010 12:33 PM EDT us U Unknown PROCEDURE/MINOR SURGICAL ORDERAB LES Final Result * SCANNED PRE/POST PROCEDURES (09/01/2010 12:00 AM EDT) Narrative 09/01/2010 12:34 PM EDT Ordered by an unspecified provider. Transcriptions Unknown, U - 09/01/2010 12:33 PM EDT us U Unknown PROCEDURE/MINOR SURGICAL ORDERAB LES Final Result * SCANNED OR REPORT (05/29/2010 12:00 AM EDT) Narrative 05/30/2010 3:06 PM EDT Ordered by an unspecified provider. Transcriptions Unknown, U - 05/29/2010 1:19 PM EDT us U Unknown PROCEDURE/MINOR SURGICAL ORDERAB LES Final Result documented in this encounter Visit Diagnoses Not on filedocumented in this encounter
--- OUTSIDE RECORDS SUMMARY | 2024-10-02 22:02 | XMS_ITS | Clinical Summary ---
Author Organization [facility] Address [facility] [place] [address] Care Team Providers Care Payroll Master Name Role Phone Tristan Moffett Primary Care Provider [phone] Source Comments This information has been disclosed to you from confidential records protectedfrom disclosure by state law. You shall make no further disclosure of thisinformation without the specific, written, and informed release of theindividual to whom it pertains, or as otherwise permitted by law. A generalauthorization for the release of medical or other information is not sufficientfor the purposes of therelease of HIV test results or diagnoses. 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
--- OUTSIDE RECORDS SUMMARY | 2024-10-02 22:02 | XMS_ITS | Encounter Summary ---
Author Organization [facility] Address [address] [place] [id number] Care Team Providers Care Wide Piece Goods Inspector Name Role Phone Tristan Moffett Primary Care Provider [phone] Source Comments This information has been disclosed to you from confidential records protectfrom disclosure by state law. You shall make no further disclosure of thisinformation without the specific, written, and informed release of theindividual to whom it pertains, or as otherwise permitted by law. A generalauthorization for the release of medical or other information is not sufficientfor the purposes of the release of HIV test results or diagnoses. [id number] Health Encounter Details Date Type Department Care Team (Latest Contact Info) Description 03/27/2010 9:20 AM EDT - 03/27/2010 4:10 PM EDT Hospital Encounter Perioperative Services [address] [place] [phone] Carissa Wick MD [address] [place], [place] [phone] Discharge Disposition: Home or Self Care WITHOUT Home Care Services Social History Tobacco Use Types Packs/Day Years Used Date Smoking Tobacco: Never Assessed Sex and Gender Information Value Date Recorded Sex Assigned at Not on file Legal Sex Male 11:08 PM EST Gender Identity Not on file Sexual Orientation Not on file documented as of this encounter Procedure Notes * Carissa Wick MD - 03/28/2010 7:55 AM EDT [facility] PATIENT NAME: AZALIA VALDEZ MR #: [id number] DATE OF : 1970 SURGEON: Carissa Wick M.D. ROOM #: [facility] SERVICE: Otolaryngology NURSING UNIT: [facility] PRIMARY: Tristan Moffett FC: Raphael REFERRING: Carissa Wick M.D. ADMIT DATE: 03/27/2010 DICTATED BY: Carissa Wick M.D. SURGERY DATE: 03/27/2010 DISCHARGE DATE: OPERATIVE REPORT PREOPERATIVE DIAGNOSES: 1. 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 POSTOPERATIVE DIAGNOSES: 1. 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 PROCEDURE PERFORMED: 1. Partial rhinectomy with resection of left nasal ala and nasal sidewall along with a portion of the left cheek and left lip skin. 2. Left neck exploration with sentinel lymph node biopsy excision of two level 1 lymph nodes. SURGEON: Carissa Wick M.D. DIRECTOR HYDROGEN STORAGE ENGINEERING: Glen Larson M.D. FELLOW SHOE PULLER: Sanju Pablo D.O. COMPLICATIONS: None apparent. SPECIMENS REMOVED: 1. Reexcision of nasolabial crease lesion. 2. Seven margins were all negative for malignancy. 3. Sherwood lymph node #1. 4. Sherwood lymph node #2. DRAINS: None. ANESTHESIA: General. IV FLUIDS: Lactated Ringer. ESTIMATED BLOOD LOSS: Less than 50. INDICATIONS FOR OPERATION: The patient is a 39-year-old gentleman with a previous lesion of his left nasolabial crease. A previous shave biopsy was read as a benign lesion. The patient then underwent a local excision via an incision in the nasolabial crease by . The lesion then was sent for analysis and was found to be consistent with a sebaceous carcinoma. This was rereviewed at [facility] by pathology which reconfirmed this diagnosis; however, the dermatopathologists at [facility] were questioning whether this was a benign lesion. Therefore a final opinion was obtained at the [facility] in [place] which two pathologists/dermatopathologists reaffirmed that this was a sebaceous carcinoma recommending reexcision given obvious tumor at the margins of the resection. Therefore, I did discuss with the patient the need for a partial limited rhinectomy and reexcision of the left nasolabial sulcus along with this sentinel lymph node biopsy given her propensity of these lesions for gonzalez and potentially distant metastases. The patient understood the rationale for this approach and also understood that there is a high likelihood that this reexcision shows no evidence of any persistent malignancy. The patient will follow up in the next several days with for discussion and evaluation for reconstruction. DETAILS OF PROCEDURE: The patient was brought to the operative suite and placed in the supine position. At this point, a hold point was performed and verified with all OR personnel as well as the patient. Next, the patient's previous incision in the nasal labial crease was marked and then margins were made approximately 4-5 mm away from the crease on the left cheek skin and extending onto the skin of the upper lip. The marking was then extended into the floor of the nose and then markings were made in the vestibular skin to ensure complete incorporation of the region of the medial labial crease internally. A trell was then also made on the nasal alar sidewall into the nasolabial crease. Next, measurements were obtained and from the subnasale to the origin of the nasolabial crease (insertion of the nasal lobule) was 1.5 cm, which was symmetric with the contralateral side. Measurements were then taken from the insertion site medial along the floor of the nose and it measured approximately 1 cm from this to the septum and this was then 5 mm from the subnasale reaffirming these measurements. A ruler was then used to make a horizontal line directly from the subnasale and the insertion of the lobule was noted to be 5 mm superior. At this point, methylene blue was then injected circumferentially of the crease. Approximately 20 minutes were allowed to transpire until any incisions were then made. The patient was then prepped and draped in the normal sterile fashion. At this point, the gamma probe was used for identification of the primary gonzalez drainage basin. The lymphoscintigraphy demonstrated that this appeared to be overlying the level of the mandible in level 1 on the left side. The gamma counter reaffirmed this with uptake of approximately 200 in this region with areas overlying the facial drainage pattern superior to this being from 10-20. Next, the crease in the neck was then marked for intended sentinel node biopsy. Attention was then directed back up to the primary location. An 11 blade was then used to make an incision through the alar sidewall. This was a through and through incision into the nasal vestibule and this was then carried out to the free margin of the nose. Following this, incisions were then made circumferentially with a 15 blade. Once this was carried down through subcutaneous tissue, a healthy margin of the deep muscle and subcutaneous tissue was incorporated into the resection. All of this looked like healthy tissue with no evidence of the previous dissection. Medially, the skin of the nasal vestibule and floor of the nose was carefully elevated until the maxilla was identified and the soft tissue was then elevated off the maxilla in its entirety. Again, there was no evidence of any previous surgery in this region. Once this was dissected circumferentially this was then cut and passed off the field. Margins were then taken of the skin edges as well as a deep margin directly in the region of the maxilla adjacent to the nasal floor. All margins came back negative. A nasal trumpet was placed in the nose and Xeroform packing was then placed in the wound bed. There was good hemostasis obtained and several 3-0 Prolene was used to secure the Xeroform. Attention was then directed to the left neck. The previously marked skin incision was then incised with a 15 blade. This was carried down to the subplatysmal plane. The platysma was then elevated superiorly and inferiorly. The superficial layer of the deep cervical fascia was then incised and the marginal mandibular nerve was easily identified. This was then dissected on its inferior surface and then reflected superiorly. The [place] counter was then used and several lymph nodes were identified, two of which had slight blue coloration these were then dissected in their entirety along with leaving a segment of fat around both of these prominent nodes. These were then passed off the field. After these nodes were removed the gamma counter demonstrated very minimal uptake in the wound bed. Therefore, at this point, the procedure was terminated. The wound was carefully irrigated and adequate hemostasis was verified. The wound was then closed with several deep 3-0 Vicryl sutures bringing the platysma together followed by a running 5-0 Monocryl to bring the skin edges together. Please note that I was present throughout the procedure, involved in all critical decision making. SENTINEL NODE FINDINGS: The primary lesion count initially was approximately 12,000, with removal the count was approximately 22,000, with the residual wound bed having a reading of 22. Sherwood node #1, the pre dissection count was 200, the lymph node then measured 660 out of the wound and the post reading in the wound bed was 23. Sherwood node #2 had a pre dissection reading of approximately 60, once it was out this node measured 190 and then the post-count was 10. There was no other significant uptake in the neck that was encountered, therefore, it was felt that this was an adequate sentinel node dissection. KAC/tmg Carissa Wick M.D. c: Anesthesia OPERATIVE REPORT PAGE 1 of 1 PAGE 1 of 1 documented in this encounter Plan of Treatment Not on file documented as of this encounter Procedures Procedure Name Priority Date/Time Associated Diagnosis Comments NM LYMPH NODE IMAGING Routine 03/27/2010 9:12 AM EDT SURGICAL PATHOLOGY EXAM Routine 03/27/2010 12:00 AM EDT documented in this encounter Results * NM Lymph node imaging (03/27/2010 9:12 AM EDT) Anatomical Region Laterality Modality Nuclear Medicine 03/27/2010 9:12 AM EDT Narrative 03/27/2010 10:38 AM EDT ? [facility] Patient: Azalia VALDEZ : ? 1970 Accn#: ?? [id number] Nuclear Medicine Exam ? Exam Date/Time ? Ordering Physician NM-LYMPH NODE IMAGING ?03/27/2010 09:12 EDT CARISSA WICK Reason for Exam Melanoma Report Clinical: Patient has sebaceous carcinoma in the left nose and is referred for lymph node mapping. Radiopharmaceutical: Tc-99m sulfur colloid 1 mCi ID. Technical: ??Imaging to identify the lymphatics and/or sentinel lymph node was initiated following injection of the radionuclide. Findings: Following the injection of the radionuclide around the skin lesion in the nose images demonstrate 2 focal areas of radionuclide uptake in the left supraclavicular region. No other areas of radionuclide accumulation is seen in the head, ??neck or chest. Impression: Two lymph nodes are identified in the left supraclavicular region as described. VERIFIED REPORT Dictated: 03/27/2010 10:36 am ? FABIAN LINARES M.D. Signed (Electronic Signature): ??JAMEY Padilla, FABIAN 03/27/10 10:38 Technologist: JOCY DOMINGUEZ,DEEP Procedure Note Fabian Linares MD - 05/16/2012 [facility] Patient: Azalia VALDEZ : 1970 Accn#: [id number] Nuclear Medicine Exam Exam Date/Time Ordering Physician NM-LYMPH NODE IMAGING 03/27/2010 09:12 EDT CARISSA WICK Reason for Exam Melanoma Report Clinical: Patient has sebaceous carcinoma in the left nose and is referred for lymph node mapping. Radiopharmaceutical: Tc-99m sulfur colloid 1 mCi ID. Technical: Imaging to identify the lymphatics and/or sentinel lymph node was initiated following injection of the radionuclide. Findings: Following the injection of the radionuclide around the skin lesion in the nose images demonstrate 2 focal areas of radionuclide uptake in the left supraclavicular region. No other areas of radionuclide accumulation is seen in the head, neck or chest. Impression: Two lymph nodes are identified in the left supraclavicular region as described. VERIFIED REPORT Dictated: 03/27/2010 10:36 am FABIAN LINARES M.D. Signed (Electronic Signature): FABIAN LINARES M.D. 03/27/10 10:38 Technologist: MG,CJH,CLF us Carissa Wick MD [facility] [place] ORDER[place]LES Final Result * Surgical Pathology Exam (03/27/2010 12:00 AM EDT) 03/27/2010 Narrative [facility] - 03/27/2010 12:00 AM EDT CASE: [id number] PATIENT: Azalia VALDEZ Clinical History: ?? None Given Pre-Operative Diagnosis: None Given Post-Operative Diagnosis: ? None Given Specimen(s) Submitted: ?? A. Left nasal labial re excision s/p; B. Deep margin tissue overlying maxilla F/S; C. Left cheek skin F/S; D. Left nasal side wall external skin F/S; E. Left nasal side wall vestibular skin F/S; F. Nasal floor skin F/S; G. Nasal sill F/S; H. Left inferior skin of upper lip F/S; I. Sherwood node #1 s/p; J. Sherwood node #2 s/p CPT Code(s): ?? 51650 X 2; 91402.3 X 5; 14828 X 3; 93209 X 7; 80028 X 4 Office Info: ?? Long stitch cheek skin, short stitch skin of vestibule FINAL DIAGNOSIS: A. ?? Left nasal labial reexcision, long stitch - cheek skin, short stitch - skin of vestibule: ? - Left nasal labial crease excision specimen with no residual sebaceous carcinoma. ? - Previous biopsy site changes. ? - Surgical resection margins are negative for carcinoma. B. ?? Deep margin, tissue overlying maxilla, biopsy: ? - Skeletal muscle and fibroadipose tissue, negative for malignancy. C. ?? Left cheek skin, biopsy: ? - Skin and subcutaneous tissue, negative for carcinoma. D. ?? Left nasal side wall external skin, biopsy: ? - Skin and subcutaneous tissue with solar elastosis. ? - Negative for carcinoma. E. ?? Left nasal side wall vestibular skin, biopsy: ? - Skin and subcutaneous tissue, negative for carcinoma. F. ?? Nasal floor skin, excision: ? - Skin and subcutaneous tissue, negative for carcinoma. G. ?? Nasal sill, excision: ? - Skin and subcutaneous tissue, negative for carcinoma. H. ?? Left inferior skin of upper lip, excision: ? - Skin and subcutaneous tissue with solar elastosis. ? - Negative for carcinoma. I. ?? Sherwood node #1, excision: ? - One lymph node, negative for carcinoma by multiple levels of HE and CK7 ? immunohistochemical stain (0/1). J. ?? Sherwood node #2, excision: ? - One lymph node, negative for carcinoma by multiple levels of HE and CK7 ? immunohistochemical stain (0/1). 82242 x7, 38804 x3, 49616 x7, 44959 x4 VC/bk Frozen Section Diagnosis: B-H. ? FSB-FSH: ? - Negative for malignancy. ? (Conchita Gamboa M.D.) ??(total turnaround time 30 minutes) ??VIRAJ/ldm Gross Description: This case has 10 parts. A. ?? Received in formalin, labeled left nasal-labial reexcision, long stitch - cheek skin, short stitch - skin of vestibule, is a 2.7 x 2.3 x 1.5 cm portion of soft tissue with overlying 2.5 x 2.5 cm irregular portion of wrinkled arora skin. ??The specimen is received with two orienting sutures, one long and one short, designating cheek skin (lateral) and skin of vestibule (medial) respectively. ??The specimen is inked as follows: medial - orange, lateral (long stitch) - blue, and posterior - black. ??The skin and underlying soft tissue is rubbery without a definitive discrete invasive lesion identified. ??The specimen is step-sectioned and entirely submitted from inferior to superior in cassettes A1-A10. ??VIRAJ/ldm B. ?? Received fresh, labeled deep margin, tissue overlying maxilla, is a 0.8 x 0.6 x 0.2 cm piece of rubbery arora-purple tissue, resubmitted in cassette FSB1. C. ?? Received fresh, labeled left cheek skin, are 2 pieces of arora tissue, 0.7 and 0.9 cm in greatest dimension. ??Entirely resubmitted in cassette FSB1. D. ?? Received fresh, labeled left nasal sidewall external skin, are 2 pieces of arora-pink tissue, 0.3 and 0.6 cm in greatest dimension. ??Entirely resubmitted in cassette FSD1. E. ?? Received fresh, labeled left nasal sidewall vestibular skin, are 2 pieces of arora hair-bearing skin, 0.4 and 0.5 cm in greatest dimension. Entirely resubmitted in cassette FSE1. F. ?? Received fresh, labeled nasal floor skin, is a 1.2 x 0.2 x 0.1 cm piece of elongated wrinkled arora skin, resubmitted in cassette FSF1. G. ?? Received fresh, labeled nasal sill, is a 0.4 x 0.3 x 0.2 cm piece of irregular arora tissue, resubmitted in cassette FSG1. H. ?? Received fresh, labeled left inferior skin of upper lip, is a 1 x 0.3 x 0.2 cm piece of irregular arora tissue, resubmitted in cassette FSH1. VIRAJ/ldm I. ?? Received in formalin, labeled sentinel node #1, is a 2.3 x 1.5 x 0.9 cm piece of ovoid, lobulated, arora-yellow tissue, within which is an up to 1.5 cm rubbery, arora-purple lymph node. ??The specimen is trisected and entirely submitted in cassettes I1-I3. ?? Sherwood node is written on the side of the cassette. ??VIRAJ/bk J. ?? Received in formalin, labeled sentinel node #2, is a 1.2 x 0.9 x 0.7 cm piece of ovoid, lobulated, arora-yellow tissue, within which is an up to 0.7 cm arora-pink lymph node. ??The specimen is trisected and entirely submitted in cassette J1. ?? Sherwood node is written on the side of the cassette. ??VIRAJ/bk Microscopic Description: Microscopic examination was performed. ??VC/bk I have reviewed all diagnostic slides and have edited the gross and/or microscopic portion of this report as part of my pathologic assessment and final diagnosis. Some tests use analyte-specific reagents (ASRs). These tests were developed and their performance characteristics determined by [facility]. They have not been cleared or approved by the US Food and Drug Administration. The FDA has determined that such clearance or approval is not necessary. These tests are used for clinical purposes. They should not be regarded as investigational or for research. Listed are all ASRs used at [facility]. ??IHC: CMV, EBV, HSV, PIN4, AE1/3/CAM 5.2, p504s, adenovirus. Probes consist of GENTRY, kappa, lambda, HPV family 6, HPV family 16, SIS HER2/pete. The pathologist signing this report is located at [facility], [address] [place] [address]. ELVA NAIK MD Pathologist Electronically signed 03/30/2010 Carissa Wick MD PATHOLOGY/CYTOLOGY ORDERABLES nal Result Performing Organization Address City/State/[facility] Co de Phone Number [facility] [address] [facility] [place] [address] documented in this encounter Visit Diagnoses Not on filedocumented in this encounter Care Teams Wide Piece Goods Inspector Relationship Specialty Start Date End Date Tristan Moffett [address] [place] [phone] PCP - General 01/11/10 documented as of this encounter
--- OUTSIDE RECORDS SUMMARY | 2024-10-02 22:02 | XMS_ITS | Encounter Summary ---
Author Organization [place] [address] Care Team Providers Care Forest Landscape Ecology Professor Name Role Phone Unavailable Primary Care Provider Unavailabl e Encounter Details Date Type Department Care Team (Late st Contact Info) Description 12/04/2009 11:30 AM EST - 12/04/2009 2:40 PM EST Hospital Encounter [facility] Tahmina Celis MD [address] [place] [phone] Social History Tobacco Use Types Packs/Day Years Used Date Smoking Tobacco: Never Assessed Sex and Gender Information Value Date Recorded Sex Assigned at Not on file Legal Sex Male 9:34 PM EDT Gender Identity Not on file Sexual Orientation Not on file documented as of this encounter H&P Notes * Unknown, U - 05/31/2010 10:14 AM EDT documented in this encounter Procedure Notes * Unknown, U - 05/30/2010 12:41 PM EDTAssociated Order(s): SCANNED OR REPORT documented in this encounter Plan of Treatment Not on file documented as of this encounter Procedures Procedure Name Priority Date/Time Associated Diagnosis Comments SCANNED OR REPORT 05/30/2010 12: 00 AM EDT ADDENDUM REPORT Routine 12/04/2009 2:34 PM EST ADDENDUM REPORT Routine 12/04/2009 2:34 PM EST PATHOLOGY TISSUE REPORT Routine 12/04/2009 2:34 PM EST documented in this encounter Results * SCANNED OR REPORT (05/30/2010 12:00 AM EDT) Narrative 05/30/2010 5:06 PM EDT Ordered by an unspecified provider. Transcriptions Unknown, U - 05/30/2010 12:41 PM EDT us U Unknown PROCEDURE/MINOR SURGICAL ORDERAB LES Final Result * ADDENDUM REPORT (12/04/2009 2:34 PM EST) Addendum Report ? PATIENT NAME:AZALIA GE ? Addendum Report ? Accession Number ?Collected Date/Time ? Received Date/Time ? [id number] ? 12/04/09 14:34 EST ?12/04/09 14:34 EST ? Addendum Discussion ? Microsatellite Instability/HNPCC by Immunohistochemical Stain: ? hMLH1 IHC ? Normal ? hMSH2 IHC ? Normal ? hMSH6 IHC ? Normal ? hPMS2 IHC ? Normal ? IHC Result: ? Stable. ? Comment: IHC results indicate this tumor has probable microsatellite ? stability. Controls worked appropriately. ? Please refer to the complete [facility] report for further reference accession # ? [id number]. ? Marine Churchill MD, PhD ? (Electronically signed by) ? Verified: 12/14/2009 ? [facility] ? Accession Number ?Collected Date/Time ? Received Date/Time ? [id number] ? 12/04/09 14:34 EST ?12/04/09 14:34 EST ? Addendum Discussion ? The following the consultation report from Dermatopathology Laboratory of ? [facility] [place], [place], signed by Stan Be ??M.D. ? Diagnosis: Sebaceous carcinoma. Left ala. ? Note: The submitted immunostains show near absence of BCL-2 staining and an ? increase in Ki-67 immunostaining. Such findings, in combination, are most ? supportive of what one may see in sebaceous carcinoma. Sebaceous carcinoma ? may be part of what one may see in the Roya-Aleksander syndrome. A recent ? article from the Journal of Cutaneous Pathology, 2009: 36: 613-619, ? Cutaneous sebaceous neoplasms as markers of Roya-Aleksander syndrome, a ? diagnostic algorithm, showed the usefulness of antibodies to MLH-1, MSH-2 ? and MSH-6 done in combination. These antibodies are not available in our ? laboratory, but they may prove helpful, if done in combination, in managing ? this patient. ? Signed by Stan Be M.D. ? Note: A block of the tissue will sent [facility] Laboratory from [facility] ? [facility] for Microsatellite Instatibility IHC Panel including MLH-1, ? MSH-2, MSH6 and PMS-2. The result will be reported in an addendum. The ? tumor extends to the surgical margins. A copy of the report and the article ? will be faxed to Dr. Celis's office. ? Marine Churchill MD, PhD ? (Electronically signed by) ? Verified: 12/08/2009 ? [facility] ?Surgical Pathology Report ? Accession Number ?Collected Date/Time ? Received Date/Time ? [id number] ? 12/04/09 14:34 EST ?12/04/09 14:34 EST ? Diagnosis ? Skin, left ala tumor, excision: ? - Sebaceous neoplasm, at least 1.7 cm extending to ? the peripheral margin. ? - Pending outside dermatopathology consultation. See note. ? Note: The patient is a 39 year old male with a 1.5 x 1.7 cm soft tissue ? mass at the inferior aspect of the left nose. The main differential ? diagnosis is between sebaceous carcinoma versus sebaceoma (sebaceous ? epithelioma). This case will be sent to outside dermatopathology laboratory ? for expert consultation. The final diagnosis will be issued in an addendum. ? The findings were discussed with Dr. Celis by Dr. Churchill on 12/06/2009. ? This case was reviewed by additional departmental pathologist(s) with ? diagnostic agreement./TERE//MR ? Marine Churchill MD, PhD ? (Electronically signed by) ? Verified: 12/06/2009 ? [facility] ? Clinical Information ? Tumor, left ala. ? Gross Description ? Received in formalin labeled with the patient's name and tumor left ala is ? an unoriented ellipse of pale arora skin 1.2 x 0.6 cm, with attached ? underlying tissue 2 cm in thickness. ??The specimen received is unoriented. ? The margins are inked black. ??Serial sections show a somewhat rounded, ? circumscribed nodule with ill-defined edges, composed of variegated firm ? arora-canales to yellow tissue, consistent with tumor, extending very close to ? and grossly present at the margins. ??Also received in the same container is ? a detached piece of arora tissue measuring 0.5 cm in greatest dimension. ??The ? specimen is entirely submitted and labeled as follows: ??A,B= ill-defined ? tissue, C= bilateral tips, D= detached ill-defined tissue./[place] ? DB /DH ? Microscopic Description ? Sections of the left ala tumor show well-circumscribed lobules of basaloid ? cells proliferation with scattered mature sebaceous cells with clear ? cytoplasma. Mild nuclear atypia with increased mitotic figures averaging 1 ? to 2 mitotic figures per 10 high power field is noted. Immunohistochemical ? stains show the tumor cells are focally positive for pancytokeratin and MELVA ? and negative for BCL-2. Ki-67 stain shows increased mitotic activity with ? focally areas between 20% to 30%. ??The tumor extending with inked margin. ? The main differential is between sebaceous carcinoma versus sebaceoma ? (sebaceous epithelioma). This case will be sent to outside dermatopathology ? consultation. [facility] 12/04/2009 2:34 PM EST us Tahmina Celis MD PATHOLOGY ORDERABLES Shaylee garrett Result [facility] [address] [place] [address] * ADDENDUM REPORT (12/04/2009 2:34 PM EST) Addendum Report ? PATIENT NAME:AZALIA GE ? Addendum Report ? Accession Number ?Collected Date/Time ? Received Date/Time ? [id number] ? 12/04/09 14:34 EST ?12/04/09 14:34 EST ? Addendum Discussion ? The following the consultation report from Dermatopathology Laboratory of ? [facility] [place], [place], signed by Stan Be ??M.D. ? Diagnosis: Sebaceous carcinoma. Left ala. ? Note: The submitted immunostains show near absence of BCL-2 staining and an ? increase in Ki-67 immunostaining. Such findings, in combination, are most ? supportive of what one may see in sebaceous carcinoma. Sebaceous carcinoma ? may be part of what one may see in the Roya-Aleksander syndrome. A recent ? article from the Journal of Cutaneous Pathology, 2009: 36: 613-619, ? Cutaneous sebaceous neoplasms as markers of Roya-Aleksander syndrome, a ? diagnostic algorithm, showed the usefulness of antibodies to MLH-1, MSH-2 ? and MSH-6 done in combination. These antibodies are not available in our ? laboratory, but they may prove helpful, if done in combination, in managing ? this patient. ? Signed by Stan Be M.D. ? Note: A block of the tissue will sent [facility] from [facility] ? [facility] for Microsatellite Instatibility IHC Panel including MLH-1, ? MSH-2, MSH6 and PMS-2. The result will be reported in an addendum. The ? tumor extends to the surgical margins. A copy of the report and the article ? will be faxed to Dr. Celis's office. ? Marine Churchill MD, PhD ? (Electronically signed by) ? Verified: 12/08/2009 ? [facility] ?Surgical Pathology Report ? Accession Number ?Collected Date/Time ? Received Date/Time ? [id number] ? 12/04/09 14:34 EST ?12/04/09 14:34 EST ? Diagnosis ? Skin, left ala tumor, excision: ? - Sebaceous neoplasm, at least 1.7 cm extending to ? the peripheral margin. ? - Pending outside dermatopathology consultation. See note. ? Note: The patient is a 39 year old male with a 1.5 x 1.7 cm soft tissue ? mass at the inferior aspect of the left nose. The main differential ? diagnosis is between sebaceous carcinoma versus sebaceoma (sebaceous ? epithelioma). This case will be sent to outside dermatopathology laboratory ? for expert consultation. The final diagnosis will be issued in an addendum. ? The findings were discussed with Dr. Celis by Dr. Churchill on 12/06/2009. ? This case was reviewed by additional departmental pathologist(s) with ? diagnostic agreement./TERE/DO/MR ? Marine Churchill MD, PhD ? (Electronically signed by) ? Verified: 12/06/2009 ? [facility] ? Clinical Information ? Tumor, left ala. ? Gross Description ? Received in formalin labeled with the patient's name and tumor left ala is ? an unoriented ellipse of pale arora skin 1.2 x 0.6 cm, with attached ? underlying tissue 2 cm in thickness. ??The specimen received is unoriented. ? The margins are inked black. ??Serial sections show a somewhat rounded, ? circumscribed nodule with ill-defined edges, composed of variegated firm ? arora-canales to yellow tissue, consistent with tumor, extending very close to ? and grossly present at the margins. ??Also received in the same container is ? a detached piece of arora tissue measuring 0.5 cm in greatest dimension. ??The ? specimen is entirely submitted and labeled as follows: ??A,B= ill-defined ? tissue, C= bilateral tips, D= detached ill-defined tissue./[place] ? DB /DH ? Microscopic Description ? Sections of the left ala tumor show well-circumscribed lobules of basaloid ? cells proliferation with scattered mature sebaceous cells with clear ? cytoplasma. Mild nuclear atypia with increased mitotic figures averaging 1 ? to 2 mitotic figures per 10 high power field is noted. Immunohistochemical ? stains show the tumor cells are focally positive for pancytokeratin and MELVA ? and negative for BCL-2. Ki-67 stain shows increased mitotic activity with ? focally areas between 20% to 30%. ??The tumor extending with inked margin. ? The main differential is between sebaceous carcinoma versus sebaceoma ? (sebaceous epithelioma). This case will be sent to outside dermatopathology ? consultation. [facility] 12/04/2009 2:34 PM EST us Tahmina Celis MD PATHOLOGY ORDERABLES Shaylee garrett Result [facility] [address] [place] [address] * SURGICAL PATHOLOGY REPORT (12/04/2009 2:34 PM EST) Surgical Pathology Report ? PATIENT NAME:AZALIA GE ?Surgical Pathology Report ? Accession Number ?Collected Date/Time ? Received Date/Time ? [id number] ? 12/04/09 14:34 EST ?12/04/09 14:34 EST ? Diagnosis ? Skin, left ala tumor, excision: ? - Sebaceous neoplasm, at least 1.7 cm extending to ? the peripheral margin. ? - Pending outside dermatopathology consultation. See note. ? Note: The patient is a 39 year old male with a 1.5 x 1.7 cm soft tissue ? mass at the inferior aspect of the left nose. The main differential ? diagnosis is between sebaceous carcinoma versus sebaceoma (sebaceous ? epithelioma). This case will be sent to outside dermatopathology laboratory ? for expert consultation. The final diagnosis will be issued in an addendum. ? The findings were discussed with Dr. Celis by Dr. Churchill on 12/06/2009. ? This case was reviewed by additional departmental pathologist(s) with ? diagnostic agreement./TERE/DO/MR ? Marine Churchill MD, PhD ? (Electronically signed by) ? Verified: 12/06/2009 ? [facility] ? Clinical Information ? Tumor, left ala. ? Gross Description ? Received in formalin labeled with the patient's name and tumor left ala is ? an unoriented ellipse of pale arora skin 1.2 x 0.6 cm, with attached ? underlying tissue 2 cm in thickness. ??The specimen received is unoriented. ? The margins are inked black. ??Serial sections show a somewhat rounded, ? circumscribed nodule with ill-defined edges, composed of variegated firm ? arora-canales to yellow tissue, consistent with tumor, extending very close to ? and grossly present at the margins. ??Also received in the same container is ? a detached piece of arora tissue measuring 0.5 cm in greatest dimension. ??The ? specimen is entirely submitted and labeled as follows: ??A,B= ill-defined ? tissue, C= bilateral tips, D= detached ill-defined tissue./[place] ? DB /DH ? Microscopic Description ? Sections of the left ala tumor show well-circumscribed lobules of basaloid ? cells proliferation with scattered mature sebaceous cells with clear ? cytoplasma. Mild nuclear atypia with increased mitotic figures averaging 1 ? to 2 mitotic figures per 10 high power field is noted. Immunohistochemical ? stains show the tumor cells are focally positive for pancytokeratin and MELVA ? and negative for BCL-2. Ki-67 stain shows increased mitotic activity with ? focally areas between 20% to 30%. ??The tumor extending with inked margin. ? The main differential is between sebaceous carcinoma versus sebaceoma ? (sebaceous epithelioma). This case will be sent to outside dermatopathology ? consultation. [facility] 12/04/2009 2:34 PM EST us Tahmina Celis MD PATHOLOGY ORDERABLES Shaylee garrett Result [facility] [address] [place] [address] documented in this encounter Visit Diagnoses Not on filedocumented in this encounter
--- OUTSIDE RECORDS SUMMARY | 2024-10-02 22:02 | XMS_ITS | Encounter Summary ---
Author Organization [facility] [place] [address] Care Team Providers Care Medical Psychotherapist Name Role Phone Unavailable Primary Care Provider Unavailabl e Encounter Details Date Type Department Care Team (Late st Contact Info) Description 11/19/2009 12:01 AM EST - 11/19/2009 11:59 PM EST Hospital Encounter [facility] Tahmina Celis MD [address] [place] [phone] Social History Tobacco Use Types Packs/Day Years Used Date Smoking Tobacco: Never Assessed Sex and Gender Information Value Date Recorded Sex Assigned at Not on file Legal Sex Male 9:34 PM EDT Gender Identity Not on file Sexual Orientation Not on file documented as of this encounter Plan of Treatment Scheduled Orders Name Type Priority Associated Diagnoses Orde r Schedule CT HEAD PLATEN GRINDER Imaging Routine Once for 1 Oc currences starting 01/19/2010 until 01/19/2010, [address] SOFT TISSUE NECK WITH CONT Imaging Routine Once for 1 Occur rences starting 01/19/2010 until 01/19/2010, 1 completed documented as of this encounter Procedures Procedure Name Priority Date/Time Associated Diagnosis Comments CT HEAD PLATEN GRINDER Routine 11/19/2009 12:[address] SOFT TISSUE NECK WITH CONT Routine 11/19/2009 12:14 PM EST documented in this encounter Results * CT HEAD PLATEN GRINDER (11/19/2009 12:24 PM EST) Anatomical Region Laterality Modality Other 11/19/2009 12:2 4 PM EST Narrative 11/19/2009 1:[address] head with contrast 11/19/2009 History- Soft tissue mass left face. Technique- 75 milliliters Optiray-320 contrast IV. The brain is normal without evidence of mass, hemorrhage, infarct, or extra-axial fluid collection. ??No abnormal enhancing structures are seen. No mass is seen. The soft tissues of the face and neck are discussed on the separate neck CT report. There is mild mucosal thickening of both maxillary sinuses. There is mild submucosal thickening of the right sphenoid sinus cellule. There is leftward nasal septal deviation. 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 Impression- ??Unremarkable CT of brain. ? Library Media Specialist- SHIRAZ JONES ? Reading Physician- GUY OWUSU ??MD ? Released Date Time- 11/19/091836 Procedure Note Guy Owusu - 01/19/2010 CT head with contrast 11/19/2009 History- Soft tissue mass left face. Technique- 75 milliliters Optiray-320 contrast IV. The brain is normal without evidence of mass, hemorrhage, infarct, or extra-axial fluid collection. No abnormal enhancing structures are seen. No mass is seen. The soft tissues of the face and neck are discussed on the separate neck CT report. There is mild mucosal thickening of both maxillary sinuses. There is mild submucosal thickening of the right sphenoid sinus cellule. There is leftward nasal septal deviation. 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 Impression- Unremarkable CT of brain. Library Media Specialist- SHIRAZ JONES Reading Physician- GUY OWUSU MD Released Date Time- 11/19/091836 us Tahmina Celis MD [facility] RAD [facility]ISTORIC AL Final Result * CT SOFT TISSUE NECK WITH CONT (11/19/2009 12:14 PM EST) Anatomical Region Laterality Modality Other 11/19/2009 12:1 4 PM EST Narrative 11/19/2009 1:[address] neck with contrast. History- Soft tissue mass left nose. Technique- 75 milliliters Optiray-320 contrast IV. Axial, coronal, and sagittal images are reviewed. In the inferior aspect of the soft tissues of the left nose there is a 1.5 x 1.7 centimeter soft tissue mass present that is nonspecific in appearance. It protrudes slightly into the left nasal cavity. It extends to the maxilla. It does not have any adjacent bony erosion involvement or remodeling. Its attenuation is similar to that of muscle. No fat is seen within. ? Library Media Specialist- SHIRAZ JONES ? Reading Physician- GUY OWUSU ? Released Date Time- 11/19/09 1837 Procedure Note Guy Owusu - 01/19/2010 CT neck with contrast. History- Soft tissue mass left nose. Technique- 75 milliliters Optiray-320 contrast IV. Axial, coronal, and sagittal images are reviewed. In the inferior aspect of the soft tissues of the left nose there is a 1.5 x 1.7 centimeter soft tissue mass present that is nonspecific in appearance. It protrudes slightly into the left nasal cavity. It extends to the maxilla. It does not have any adjacent bony erosion involvement or remodeling. Its attenuation is similar to that of muscle. No fat is seen within. Library Media Specialist- SHIRAZ Maya Physician- GUY OWUSU MD Released Date Time- 11/19/09 1837 us Tahmina Celis MD [facility] Final Result documented in this encounter Visit Diagnoses Not on filedocumented in this encounter
--- OUTSIDE RECORDS SUMMARY | 2024-10-02 22:02 | XMS_ITS | Encounter Summary ---
Author Organization [place] [address] Care Team Providers Care Timber Cutter Name Role Phone Unavailable Primary Care Provider Unavailabl e Encounter Details Date Type Department Care Team (Late st Contact Info) Description 06/08/1989 12:36 PM EDT - 06/08/1989 11:59 PM EDT Hospital Encounter [facility] Mc Palomo MD Social History Tobacco Use Types Packs/Day Years Used Date Smoking Tobacco: Never Assessed Sex and Gender Information Value Date Recorded Sex Assigned at Not on file Legal Sex Male 9:34 PM EDT Gender Identity Not on file Sexual Orientation Not on file documented as of this encounter Plan of Treatment Not on file documented as of this encounter Visit Diagnoses Not on filedocumented in this encounter
--- OUTSIDE RECORDS SUMMARY | 2024-10-02 22:02 | XMS_ITS | Encounter Summary ---
Author Organization Health Address [address] [place] [address] Care Team Providers Care Manager Of Compliance Name Role Phone Betina Tristan Gabrielle Primary Care Provider [phone] Source Comments This information has been disclosed [...] release of HIV test results or diagnoses. [id number] Health Encounter Details Date Type Department Care Team (Late st Contact Info) Description 01/11/2010 - 01/11/2010 11:59 PM EST Hospital Encounter [facility] [address] [place] [phone] Social History Tobacco Use Types Packs/Day Years [...] Name Priority Date/Time Associated Diagnosis Comments CT NECK WITH IV CONTRAST Routine 01/11/2010 9:57 AM EST documented in this encounter Results * CT Neck With contrast (01/11/2010 9:57 AM EST) Anatomical Region Laterality Modality Neck, C-spine Computed Tomogra phy 01/11/2010 9:57 AM EST Narrative 01/11/2010 1:13 PM EST ?Brain in Hand Patient: Shankar GE : ? 1970 Accn#: ?? [id number] Computed Tomography Exam ? Exam Date/Time ? Ordering Physician CT-NECK WITH CONTRAST ?01/11/2010 09:57 SEMAJ MARTIN Reason for Exam NOSE CA. 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 Findings: Incidental note is made of arachnoid granulations in the transverse sinuses. The hypopharynx, larynx and subglottic airway are normal. No lymphadenopathy is identified. ??The thyroid is normal in appearance and the subglottic structures are normal. ??No abnormal areas of enhancement are identified. ??The vascular structures are within normal limits. ??The visualized portions of the lungs are clear. Impression: 1. No evidence of primary or metastatic disease in the neck. VERIFIED REPORT Dictated: 01/11/2010 1:14 pm ?HAILEY AVILA Signed (Electronic Signature): ??HAILEY AVILA 01/16/10 2:55 Technologist: AYUSH Procedure Note Interface, Rad Conversion - 05/15/2012 Global Ad Source [facility] Patient: Shankar GE : 1970 Accn#: [id number] Computed Tomography Exam Exam Date/Time Ordering Physician CT-NECK WITH CONTRAST 01/11/2010 09:57 SEMAJ MARTIN Reason for Exam NOSE CA. R/O METS Report CT scan of the neck with contrast dated 01/11/2010 Indication: History of nasal cancer, rule out mets Comparison: None Technique: Standard CT scan of the neck with contrast was performed with 100 mL of Omnipaque-300 administered intravenously. Findings: Incidental note is made of arachnoid granulations in the transverse sinuses. The hypopharynx, larynx and subglottic airway are normal. No lymphadenopathy is identified. The thyroid is normal in appearance and the subglottic structures are normal. No abnormal areas of enhancement are identified. The vascular structures are within normal limits. The visualized portions of the lungs are clear. Impression: 1. No evidence of primary or metastatic disease in the neck. VERIFIED REPORT Dictated: 01/11/2010 1:14 pm HAILEY AVILA Signed (Electronic Signature): HAILEY AVILA 01/16/10 2:55 Technologist: AYUSH Semaj Wick MD IMG CT ORDERABLES Final Result documented in this encounter Visit Diagnoses Not on filedocumented in this encounter Care Teams Manager Of Compliance Relationship Specialty Start Date End Date Tristan Moffett [address] [address] PCP - General 01/11/10 documented as of this encounter
--- OUTSIDE RECORDS SUMMARY | 2024-10-02 22:02 | XMS_ITS | Encounter Summary ---
Author Organization [place] [address] Care Team Providers Care Liner Inserter Name Role Phone Unavailable Primary Care Provider Unavailabl e Encounter Details Date Type Department Care Team (Late st Contact Info) Description 06/18/2010 9:28 AM EDT - 06/18/2010 1:39 PM EDT Hospital Encounter [facility] Tahmina Cleary MD [address] [place] [id number] Social History Tobacco Use Types Packs/Day Years Used Date Smoking Tobacco: Never Assessed Sex and Gender Information Value Date Recorded Sex Assigned at Not on file Legal Sex Male 9:34 PM EDT Gender Identity Not on file Sexual Orientation Not on file documented as of this encounter Progress Notes * Unknown, Unknown - 06/21/2010 12:04 AM EDT * Unknown, Unknown - 06/21/2010 12:03 AM EDT * Unknown, Unknown - 06/14/2010 5:04 AM EDT * Unknown, Unknown - 06/14/2010 5:04 AM EDT documented in this encounter H&P Notes * Unknown, Unknown - 06/21/2010 12:03 AM EDT documented in this encounter Procedure Notes * Unknown, Unknown - 06/21/2010 12:04 AM EDTAssociated Order(s): SCANNED PRE/POST PROCEDURES * Unknown, Unknown - 06/21/2010 12:04 AM EDTAssociated Order(s): SCANNED ANESTHESIA FORMS * Unknown, Unknown - 06/21/2010 12:04 AM EDT * Unknown, Unknown - 06/21/2010 12:04 AM EDTAssociated Order(s): SCANNED EKG * Unknown, Unknown - 06/21/2010 12:04 AM EDT * Unknown, Unknown - 06/19/2010 2:17 AM EDTAssociated Order(s): SCANNED OR REPORT * Unknown, Unknown - 06/15/2010 6:49 AM EDTAssociated Order(s): SCANNED RADIOLOGY REPORT documented in this encounter Nursing Notes * Unknown, Unknown - 06/25/2010 7:35 AM EDT * Unknown, Unknown - 06/21/2010 12:04 AM EDT * Unknown, Unknown - 06/21/2010 12:03 AM EDT * Unknown, Unknown - 06/07/2010 3:33 PM EDT documented in this encounter Plan of Treatment Scheduled Orders Name Type Priority Associated Diagnoses Orde r Schedule EK EKG REG Imaging Cardiology Routine Once f or 1 Occurrences starting 06/14/2010 until 06/14/2010, 1 completed documented as of this encounter Procedures Procedure Name Priority Date/Time Associated Diagnosis Comments SCANNED PRE/POST PROCEDURES 06/21/2010 12:00 AM EDT SCANNED ANESTHESIA FORMS 06/21/2010 12:00 AM EDT SCANNED EKG 06/21/2010 12:00 AM EDT SCANNED OR REPORT 06/19/2010 12: 00 AM EDT SCANNED RADIOLOGY REPORT 06/15/2010 12:00 AM EDT EK EKG REG Routine 06/14/2010 2:02 PM EDT documented in this encounter Results * SCANNED PRE/POST PROCEDURES (06/21/2010 12:00 AM EDT) Narrative 06/21/2010 4:05 AM EDT Ordered by an unspecified provider. Transcriptions Unknown, Unknown - 06/21/2010 12:04 AM EDT us Unknown Unknown PROCEDURE/MINOR SURGICAL ORDERAB LES Final Result * SCANNED ANESTHESIA FORMS (06/21/2010 12:00 AM EDT) Narrative 06/21/2010 4:05 AM EDT Ordered by an unspecified provider. Transcriptions Unknown, Unknown - 06/21/2010 12:04 AM EDT us Unknown Unknown PROCEDURE/MINOR SURGICAL ORDERAB LES Final Result * SCANNED EKG (06/21/2010 12:00 AM EDT) Anatomical Region Laterality Modality Other Narrative 06/21/2010 4:04 AM EDT Ordered by an unspecified provider. Transcriptions Unknown, Unknown - 06/21/2010 12:04 AM EDT us Unknown Unknown IMG ECG ORDERABLES Final Result * SCANNED OR REPORT (06/19/2010 12:00 AM EDT) Narrative 06/19/2010 9:16 AM EDT Ordered by an unspecified provider. Transcriptions Unknown, Unknown - 06/19/2010 2:17 AM EDT us Unknown Unknown PROCEDURE/MINOR SURGICAL ORDERAB LES Final Result * SCANNED RADIOLOGY REPORT (06/15/2010 12:00 AM EDT) Anatomical Region Laterality Modality Other Narrative 06/15/2010 12:55 PM EDT Ordered by an unspecified provider. Transcriptions Unknown, Unknown - 06/15/2010 6:49 AM EDT us Unknown Unknown IMG DIAGNOSTIC IMAGING ORDERABLE S Final Result * EK EKG REG (06/14/2010 2:02 PM EDT) Anatomical Region Laterality Modality Other 06/14/2010 2:02 PM EDT Narrative 06/14/2010 2:42 PM EDT Sinus rhythm Left axis deviation Inferior T wave changes are nonspecific Abnormal ECG No previous records available at this time ? Lead Trainerkirsten SHERWOOD ??M.D. ? Zulma SHERWOOD ??M.D. ? Released Date Time- 06/14/10 144 Procedure Note Bradly Sherwood - 06/14/2010 Sinus rhythm Left axis deviation Inferior T wave changes are nonspecific Abnormal ECG No previous records available at this time Micaela SHERWOOD M.D. Released Date Time- 06/14/101441 us Tahmina Celis MD [facility] Final Result documented in this encounter Visit Diagnoses * Initial Assessments - Unknown, Unknown - 06/21/2010 12:04 AM EDT documented in this encounter
--- OUTSIDE RECORDS SUMMARY | 2024-10-02 22:02 | XMS_ITS | Encounter Summary ---
Author Organization [place] [address] Care Team Providers Care Jewel Supervisor Name Role Phone Unavailable Primary Care Provider Unavailabl e Encounter Details Date Type Department Care Team (Late st Contact Info) Description 06/18/2010 12:01 AM EDT - 06/18/2010 11:59 PM EDT Hospital Encounter [facility] Tahmina Celis MD [address] [place] [phone] Social History Tobacco Use Types Packs/Day [...]
[2024-10-02 22:18] LABS: Microscopic, Urine URINE MICROSCOPIC (MICROSCOPIC)
[2024-10-02 22:22] LABS: Appearance,Urine CLEAR (Clear); Bilirubin,Urine Negative (Negative); Blood, Urine 3+ (Negative); Color,Urine YELLOW (Yellow); Glucose,Urine (UA) Negative (Negative); Ketones,Urine Negative (Negative); Leukocyte Esterase,Urine Negative (Negative); Nitrate,Urine POSITIVE (Negative); PH,Urine 6.5 (5.0-8.5); Protein,Urine Negative (Negative); Urobilinogen,Urine 0.2 EU/dl (0.2)
[2024-10-02 22:26] LABS: Albumin Level 4.3 g/dl (3.5-5.0); Chloride 106 mmol/L (98-107); Potassium 4.1 mmoL/L (3.5-5.1); Sodium 140 mmol/L (136-145)
[2024-10-02 22:29] LABS: Alanine Aminotransferase 62 U/L (12-78); Albumin/Globulin Ratio 1.2 (1.1-1.8); Alkaline Phosphatase 46 U/L (38-126); Anion Gap 11.1 mEq/L (5-15); Aspartate Amino Transferase 48 U/L (17-59); Bilirubin,Total 0.6 mg/dl (0.2-1.3); Blood Urea Nitrogen 20 mg/dl (9-20); Carbon Dioxide 27 mmol/L (22.0-30.0); Creatinine Clearance Estimated 132 mL/min (50-200); Estimated Glomerular Filt Rate 77 ml/min (>60); GFR (African American) 94 ML/MIN (>60); Globulin 3.7 g/dL (1.3-3.2); Glucose 118 mg/dl (74-100)
[2024-10-02 22:33] LABS: Basophils # 0.1 K/mm3 (0-0.2); Basophils % 0.7 % (0.1-2.0); Eosinophils # 0.3 K/mm3 (0.0-0.4); Eosinophils % 4.5 % (0.1-12.0); Hematocrit 34.8 % (42.0-52.0); Hemoglobin 11.7 g/dL (14.1-18.0); Lymphocytes # 1.3 K/mm3 (0.7-4.5); Mean Corpuscular HGB Conc 33.6 g/dL (31.8-35.4); Mean Corpuscular Hemoglobin 28.2 pg (27.0-31.2); Mean Corpuscular Volume 83.9 fl (80-94); Mean Platelet Volume 8.5 fl (7.4-10.4); Monocytes # 0.4 K/mm3 (0.1-1.0); Monocytes % 6.4 % (1.7-9.3); Neutrophils # 4.6 K/mm3 (1.8-7.8); Neutrophils % 68.3 % (37.0-80.0); Platelet Count 155 K/mm3 (142-424); Red Blood Count 4.14 M/mm3 (4.60-6.20); Red Cell Distribution Width 14.9 % (11.5-17.5); White Blood Count 6.7 K/mm3 (4.8-10.8)
[2024-10-02 22:33] LABS: Bacteria,Urine Trace /lpf; RBC,Urine 20-50 #/hpf (0-3); WBC,Urine Occasional #/hpf (0-3)
--- NOTE | 2024-10-02 22:36 | CT_ITS ---
PROCEDURE INFORMATION: Exam: CT Abdomen And Pelvis Without Contrast Exam date and time: 10/02/2024 11:05 PM Age: 54 years old Clinical indication: Other: Hematuria; Abdominal pain; Flank; Right; Additional info: Flank pain, hematuria TECHNIQUE: Imaging protocol: Computed tomography of the abdomen and pelvis without contrast. Radiation optimization: All CT scans at this facility use at least one of these dose optimization techniques: automated exposure control; mA and/or kV adjustment per patient size (includes targeted exams where dose is matched to clinical indication); or iterative reconstruction. COMPARISON: CT ABDOMEN PELVIS WO CON 05/06/2023 4:34 AM FINDINGS: Liver: Normal. No mass. Gallbladder and biliary ducts: Normal. No calcified stones. No ductal dilation. Pancreas: Normal. No ductal dilation. Spleen: Normal. No splenomegaly. Adrenal glands: Normal. No mass. Kidneys and ureters: 3.5 mm stone in the distal right ureter just proximal to the ureterovesical junction. Mild right hydroureteronephrosis and perinephric edema. Multiple small to moderate-sized bilateral caliceal stones. Stable bilateral renal cortical cysts noted. Stomach and bowel: Unremarkable. No obstruction. No mucosal thickening. Appendix: The appendix is visualized and appears normal. Intraperitoneal space: Unremarkable. No free air. No significant fluid collection. Vasculature: Unremarkable. No abdominal aortic aneurysm. Lymph nodes: Unremarkable. No enlarged lymph nodes. Urinary bladder: Unremarkable as visualized. Reproductive: Unremarkable as visualized. Bones/joints: Moderate degenerative changes throughout the lower spine. No vertebral body compression. No acute fracture. Soft tissues: Unremarkable. IMPRESSION: 3.5 mm distal right ureter stone with mild hydronephrosis and perinephric edema. Bilateral nephrolithiasis also noted
[2024-10-02] MEDS: KETOROLAC 30MG/ML VIAL 15 MG IV (22:47)
[2024-10-02] MEDS: ACETAMINOPHEN 500MG TAB 1000 MG PO (22:47)
--- NOTE | 2024-10-02 23:06 | ED_ITS ---
Discharge Plan Disposition Patient Disposition: Home, Self-Care Prescriptions Prescriptions: New tamsulosin 0.4 mg capsule 0.4 mg PO DAILY Qty: 30 0RF No Action levothyroxine 25 mcg tablet 25 mcg PO DAILY Patient Comments: TAKE ONE TABLET BY MOUTH ONCE DAILY Referrals Follow up/Referrals: Ryan Davis MD [Primary Care Provider] - See instructions Alfredo Corbin MD [Staff Physician] - See instructions Activity Restrictions/Add. Instructions Additional Instructions/Restrictions: Please follow-up with your primary care provider and with urology. Please return to the emergency department if you develop any new or worsening symptoms or become concerned for your health. Please take Tylenol and ibuprofen as needed for pain. Please take Flomax. Clinical Impressions Clinical Impression: Ureterovesical junction (UVJ) obstruction, Acute right flank pain, Urinary frequency Instructions Patient Instructions: DI for Urinary Tract Infection (UTI), DI for Urinary Tract Infection in Children Print Language Print Language: Iraqi Discharge ED Provider: Michael Carvalho General Adult HPI <Martha Priest DO - Last Filed: 10/02/24 23:11> General Chief complaint: Urogenital-Male Stated complaint: pain in back ,difficulty urinating Time Seen by Provider: 10/02/24 22:12 Mode of Arrival: Ambulatory Source of Information: Patient Limitations: No Limitations Description of Symptoms (Recalled from ER Triage Doc. by RN): Pt presents to ED for R flank pain and difficulty urinating. Pt states he had kidney stones last year and thinks that may be what's going on now. Pt states he took AZO at home and the flank pain has almost resolved at this time. Pt is A&O*4 and family is bedside. History of Present Illness HPI narrative: This patient is a 54-year-old male who reports a history of kidney stones presenting to the emergency department for evaluation with concern for right flank pain and urinary frequency. He states that he first woke up this morning with urinary frequency and was having urgency to go but only getting a small amount out each time. He developed some right flank pain this evening, she was concerned he could have another kidney stone. No fevers, chills, nausea, vomiting, changes bowel movements, or other concerns. He notes that he took an [id number] urinary tract infection medication but states that he does not think that it was Azo, as it was a [facility] brand. He does note that it is the medication that turns your pee orange, however. Related Data Home Medications ?Medication ?Instructions ?Recorded ?Confirmed levothyroxine 25 mcg tablet 25 mcg PO DAILY thyroid disorder 05/06/23 05/06/23 Previous Rx's ?Medication ?Instructions ?Recorded tamsulosin 0.4 mg capsule 0.4 mg PO DAILY #30 caps 10/03/24 Allergies Allergy/AdvReac Type Severity Reaction Status Date / Time No Known Allergies Allergy Verified 05/06/23 03:32 [facility] <Martha Priest DO - Last Filed: 10/02/24 23:11> [facility] Disclaimer: The information contained in this section may have been updated after the patient was seen, as this information can be updated by other users. Medical History Hypothyroidism Social History (Updated 10/02/24 @ 23:10 by Martha Priest DO) Smoking Status: Unknown if ever smoked alcohol intake: never current occupational status: employed Travel in the last 8 weeks: None <Martha Priest DO - Last Filed: 10/02/24 23:11> ROS Obtained: Yes All systems reviewed & no additional complaints except as documented Physical Exam <Martha Priest DO - Last Filed: 10/02/24 23:11> General General appearance: alert and in no apparent distress Head Head exam: atraumatic and normocephalic Eye Eye exam: Present normal appearance, PERRL and EOMI ENT ENT exam: Present normal exam, normal oropharynx, mucous membranes moist and normal external ear exam Neck Neck exam: Present normal inspection, full ROM and trachea midline; Absent tenderness Chest Chest inspection: Present normal inspection and symmetric chest wall rise; Absent tenderness Respiratory Respiratory exam: Present normal lung sounds bilaterally; Absent respiratory distress, wheezes, stridor or accessory muscle use Cardiovascular Cardiovascular exam: Present regular rate and normal rhythm Abdominal Exam Abdominal exam: Present soft; Absent distention, tenderness or guarding Extremities Exam Extremities exam: Present normal inspection, full ROM and normal capillary refill; Absent tenderness or edema Back Exam Back exam: Present normal inspection and full ROM; Absent tenderness Neurological Exam Neurological exam: Present alert, oriented X3, CN II-XII intact and normal gait; Absent motor sensory deficit Psychiatric Psychiatric exam: Present normal affect and normal mood Skin Skin exam: Present warm and dry Medical Decision Making <Martha Daphney Priest, DO - Last Filed: 10/02/24 23:11> Medical Records Medical records reviewed: Yes I reviewed the patient's medical records. Screening: Per USPSTF and CDC recommendations, given the prevalence of disease in our region, it is our hospital?s policy to screen for HIV and viral Hepatitis for all patients aged 18 and over and those with ongoing risk factors. John Inquiry Pt receiving controlled substance: No Vital Signs: 10/02/24 21:49 Temperature 97.9 F Temperature Source Oral Pulse Rate [Left] 100 H Respiratory Rate 18 Blood Pressure [Right Arm] 180/99 H Blood Pressure Mean [Right Arm] 126 02 Sat by Pulse Oximetry 96 Oxygen Delivery Method Room Air Lab Data Lab results reviewed: Yes I reviewed the patient's lab results. Lab Results 10/02/24 21:59: Urine Color Yellow, Urine Appearance Clear, Urine pH 6.5, Ur Specific [place] 1.020, Urine Protein Negative, Urine Glucose (UA) Negative, Urine Ketones Negative, Urine Blood 3+ A, Urine Nitrate Positive A, Urine Bilirubin Negative, Urine Urobilinogen 0.2, Ur Leukocyte Esterase Negative, Urine RBC 20-50, Urine WBC Occasional, Ur Squamous Epith Cells None, Urine Bacteria Trace 10/02/24 22:08: WBC 6.7, RBC 4.14 L, Hgb 11.7 L, Hct 34.8 L, MCV 83.9, MCH 28.2, MCHC 33.6, RDW 14.9, Plt Count 155, MPV 8.5, Neut % (Auto) 68.3, Lymph % (Auto) 20.0, [place] % (Auto) 6.4, Eos % (Auto) 4.5, Baso % (Auto) 0.7, Neut # (Auto) 4.6, Lymph # (Auto) 1.3, [place] # (Auto) 0.4, Eos # (Auto) 0.3, Baso # (Auto) 0.1, Sodium 140, Potassium 4.1, Chloride 106, Carbon Dioxide 27, Anion Gap 11.1, BUN 20, Creatinine 1.00, Estimated Creat Clear 132, Estimated GFR 77, Est GFR ( Amer) 94, Glucose 118 H, Calcium 10.0, Total Bilirubin 0.6, AST 48, ALT 62, Alkaline Phosphatase 46, Total Protein 8.0, Albumin 4.3, Globulin 3.7 H, Albumin/Globulin Ratio 1.2 10/02/24 23:46: Urine Color [place], Urine Appearance Slightly cloudy, Urine pH 6.5, Ur Specific Bill[place] 1.015, Urine Protein Trace, Urine Glucose (UA) Trace, Urine Ketones Negative, Urine Blood 2+ A, Urine Nitrate Positive A, Urine Bilirubin Negative, Urine Urobilinogen 1.0, Ur Leukocyte Esterase Negative, Urine RBC 20-50, Urine WBC Occasional, Ur Squamous Epith Cells None, Urine Bacteria Trace 10/02/24 22:08 10/02/24 22:08 Orders (Tests/Meds): ED MEDICATIONS Discontinued Medications Generic Name Dose Route Start Last Admin Trade Name Devon PRN Reason Stop Dose Admin Acetaminophen 1,000 mg 10/02/24 22:36 10/02/24 22:47 Acetaminophen 500mg Tab PO 10/02/24 22:37 1,000 mg ONCE ONE Administration Ketorolac Tromethamine 15 mg 10/02/24 22:36 10/02/24 22:47 Ketorolac 30mg/Ml Vial IV 10/02/24 22:37 15 mg ONCE ONE Administration ORDERS Category Date Time Status CT abdomen pelvis wo con Stat Cat Scan 10/02/24 22:36 Completed CBC w/Auto Diff [Complete Blood Count Auto Diff] Stat Lab 10/02/24 22:08 Completed Comprehensive Metabolic Panel Stat Lab 10/02/24 22:08 Completed HIV (1&2) Antibody Rapid Stat Lab 10/02/24 22:08 Received Hep C Ab with Reflex to RNA Stat Lab 10/02/24 22:05 Received UA [Urinalysis and Microscopic] Stat Lab 10/02/24 23:46 Completed Urinalysis and Microscopic Stat Lab 10/02/24 21:59 Completed Urine Culture Routine Micro 10/02/24 23:45 Received Urine Culture Stat Micro 10/02/24 21:59 Received Medical Decision Narrative: In summary, this patient is a 54-year-old male presenting to the Emergency Department for evaluation of right flank pain, urinary frequency, urinary urgency. Differential diagnoses considered include but are not limited to ureterolithiasis, pyelonephritis, cystitis, BPH, urinary retention. Ruling out the most morbid conditions drove assessment. On exam, the patient is sitting upright in bed in no acute distress. He states that his pain has resolved at this time and he is also no longer having urinary frequency. He wonders if he could have passed a stone potentially. He did take Azo prior to arrival, which contaminates his urine specimen and makes it look infected nitrate positive though it may not be. He is very well-appearing on exam, afebrile, no significant tachycardia. Abdominal exam is completely benign. Workup included CBC, CMP, urinalysis, urine culture, CT abdomen pelvis without IV contrast. He was given IV Toradol and oral Tylenol for symptomatic improvement. Labs demonstrated no significant leukocytosis. Urine again is contaminated by Azo which demonstrates 3+ blood and positive nitrates, likely related to the medication. No leukocyte esterase. Labs are reassuring with normal kidney function. CT scan pending at time of signout to oncoming provider, Dr. Carvalho. <Michael Carvalho MD - Last Filed: 10/03/24 00:40> Vital Signs: 10/02/24 21:49 Temperature 97.9 F Temperature Source Oral Pulse Rate [Left] 100 H Respiratory Rate 18 Blood Pressure [Right Arm] 180/99 H Blood Pressure Mean [Right Arm] 126 02 Sat by Pulse Oximetry 96 Oxygen Delivery Method Room Air Lab Data Lab Results 10/02/24 21:59: Urine Color Yellow, Urine Appearance Clear, Urine pH 6.5, Ur Specific Bill[place] 1.020, Urine Protein Negative, Urine Glucose (UA) Negative, Urine Ketones Negative, Urine Blood 3+ A, Urine Nitrate Positive A, Urine Bilirubin Negative, Urine Urobilinogen 0.2, Ur Leukocyte Esterase Negative, Urine RBC 20-50, Urine WBC Occasional, Ur Squamous Epith Cells None, Urine Bacteria Trace 10/02/24 22:08: WBC 6.7, RBC 4.14 L, Hgb 11.7 L, Hct 34.8 L, MCV 83.9, MCH 28.2, MCHC 33.6, RDW 14.9, Plt Count 155, MPV 8.5, Neut % (Auto) 68.3, Lymph % (Auto) 20.0, [place] % (Auto) 6.4, Eos % (Auto) 4.5, Baso % (Auto) 0.7, Neut # (Auto) 4.6, Lymph # (Auto) 1.3, [place] # (Auto) 0.4, Eos # (Auto) 0.3, Baso # (Auto) 0.1, Sodium 140, Potassium 4.1, Chloride 106, Carbon Dioxide 27, Anion Gap 11.1, BUN 20, Creatinine 1.00, Estimated Creat Clear 132, Estimated GFR 77, Est GFR ( Amer) 94, Glucose 118 H, Calcium 10.0, Total Bilirubin 0.6, AST 48, ALT 62, Alkaline Phosphatase 46, Total Protein 8.0, Albumin 4.3, Globulin 3.7 H, Albumin/Globulin Ratio 1.2 10/02/24 23:46: Urine Color [place], Urine Appearance Slightly cloudy, Urine pH 6.5, Ur Specific [place] 1.015, Urine Protein Trace, Urine Glucose (UA) Trace, Urine Ketones Negative, Urine Blood 2+ A, Urine Nitrate Positive A, Urine Bilirubin Negative, Urine Urobilinogen 1.0, Ur Leukocyte Esterase Negative, Urine RBC 20-50, Urine WBC Occasional, Ur Squamous Epith Cells None, Urine Bacteria Trace Orders (Tests/Meds): ED MEDICATIONS Discontinued Medications Generic Name Dose Route Start Last Admin Trade Name Devon PRN Reason Stop Dose Admin Acetaminophen 1,000 mg 10/02/24 22:36 10/02/24 22:47 Acetaminophen 500mg Tab PO 10/02/24 22:37 1,000 mg ONCE ONE Administration Ketorolac Tromethamine 15 mg 10/02/24 22:36 10/02/24 22:47 Ketorolac 30mg/Ml Vial IV 10/02/24 22:37 15 mg ONCE ONE Administration ORDERS Category Date Time Status CT abdomen pelvis wo con Stat Cat Scan 10/02/24 22:36 Completed CBC w/Auto Diff [Complete Blood Count Auto Diff] Stat Lab 10/02/24 22:08 Completed Comprehensive Metabolic Panel Stat Lab 10/02/24 22:08 Completed HIV (1&2) Antibody Rapid Stat Lab 10/02/24 22:08 Received Hep C Ab with Reflex to RNA Stat Lab 10/02/24 22:05 Received UA [Urinalysis and Microscopic] Stat Lab 10/02/24 23:46 Completed Urinalysis and Microscopic Stat Lab 10/02/24 21:59 Completed Urine Culture Routine Micro 10/02/24 23:45 Received Urine Culture Stat Micro 10/02/24 21:59 Received Medical Decision Narrative: In summary, this patient is a 54-year-old male presenting to the Emergency Department for evaluation of right flank pain, urinary frequency, urinary urgency. Differential diagnoses considered include but are not limited to ureterolithiasis, pyelonephritis, cystitis, BPH, urinary retention. Ruling out the most morbid conditions drove assessment. On exam, the patient is sitting upright in bed in no acute distress. He states that his pain has resolved at this time and he is also no longer having urinary frequency. He wonders if he could have passed a stone potentially. He did take Azo prior to arrival, which contaminates his urine specimen and makes it look infected nitrate positive though it may not be. He is very well-appearing on exam, afebrile, no significant tachycardia. Abdominal exam is completely benign. Workup included CBC, CMP, urinalysis, urine culture, CT abdomen pelvis without IV contrast. He was given IV Toradol and oral Tylenol for symptomatic improvement. Labs demonstrated no significant leukocytosis. Urine again is contaminated by Azo which demonstrates 3+ blood and positive nitrates, likely related to the medication. No leukocyte esterase. Labs are reassuring with normal kidney function. CT scan pending at time of signout to oncoming provider, Dr. Carvalho. Maia KING: I assumed care of the patient at the time of handoff from the prior provider. On reassessment, CT imaging interpreted by me shows a small distal ureteral stone at the UVJ. Urinalysis was repeated, is stable in appearance, does not appear consistent with a urinary tract infection at this time. Patient has no history of UTIs, is afebrile, has normal white count and has only occasional WBC and trace bacteria. I had extensive discussion with patient regarding his urinalysis and the likely false positive nitrates after Azo. At this time, after shared decision making, we do not think that the urinalysis is consistent with infection and will not pursue antibiotic therapy or transfer at this time. I did impress on patient the importance of returning if he developed any fever or worsening of symptoms as this could be reflective of a developing urinary tract infection. He was agreeable to plan and discharged in stable condition with referral to our urologist and prescription for Flomax. Critical Care <Martha Priest, DO - Last Filed: 10/02/24 23:11> Critical Care Time Critical Care Time: No
[2024-10-02 23:50] LABS: Microscopic, Urine URINE MICROSCOPIC (MICROSCOPIC)
[2024-10-02 23:51] LABS: Bilirubin,Urine Negative (Negative); Blood, Urine 2+ (Negative); Glucose,Urine (UA) TRACE (Negative); Ketones,Urine Negative (Negative); Leukocyte Esterase,Urine Negative (Negative); Nitrate,Urine POSITIVE (Negative); PH,Urine 6.5 (5.0-8.5); Protein,Urine TRACE (Negative); Specific Gravity, Urine 1.015 (1.005-1.030)
[2024-10-02 23:52] LABS: Appearance,Urine Slightly Cloudy (Clear); Color,Urine Orange (Yellow)
[2024-10-03 00:15] LABS: Bacteria,Urine Trace /lpf; RBC,Urine 20-50 #/hpf (0-3); WBC,Urine Occasional #/hpf (0-3)
[2024-10-03 00:37] VITALS: BP 114/77; PULSE 93; RESP 18; TEMP 36.9; O2SAT 100
[2024-10-03] MEDS: TAMSULOSIN 0.4MG CAPSULE 0.4 MG PO (00:39)
[2024-10-03 01:39] LABS: HIV (1&2) Antibody Rapid NONREACTIVE (NONREACTIVE)
[2024-10-05 06:52] LABS: HCV Ab Non Reactive (Non Reactive)
== END 2024-10-03 00:42 | disposition home or self-care (01) ==
PROVIDERS: Emergency Medicine; Emergency Provider Emergency Medicine; PCP Family Medicine
DX: N13.5 Crossing vessel and stricture of ureter without hydronephrosis (principal); R10.9 Unspecified abdominal pain; R35.0 Frequency of micturition; R33.9 Retention of urine, unspecified; M54.9 Dorsalgia, unspecified
CPT/HCPCS: 74176; 80053; 81001; 85025; 86803; 87086; 87389; 96374; 99284; J1885